=== PATIENT | female | born 1960 | race Caucasian/White ===

== ENCOUNTER 2021-06-21 12:15 | Inpatient (IN) | payer MEDICARE, MEDICAID ==
--- NOTE | 2021-06-21 14:55 | PCM.HP.2 ---
H&P History of Present Illness - General Date of Service: 06/21/21 Admit Problem/Dx: Admission Diagnosis/Problem Admission Diagnosis/Problem CHF, Congestive heart failure Source of Information: Patient History Limitations: Reports: No Limitations - History of Present Illness Initial Comments - Free Text/Narative: Nadira is admitted 06/21/2021 from clinic as a planned admission for more aggressive diureses. She has a hx of pulmonary HTN as well as chronic diastolic heart failure. She has a site leasing agent PICC in and receives Diuril 250 mg IV q Monday as an outpatient and takes 250 mg orally on the days she does not get the infusion. She also takes Lasix 200 mg IV daily and is supposed to add an additional 100 mg IV in the afternoon if her weight is up, but she has not been doing this as it has been inconvenient for her with her schedule. Her dry weight is 315 lbs and she states she was 322 this AM but our clinic scale said 328 today. She is SOB, she has bilateral LE edema with an open lesion on her left garza where she blistered and the skin came off. She also has edema in her abdomen. She has COPD and is on oxygen at 4LPM and when her weight is down she can get down to 3LPM via [place]. She follows with Dr. Veloz at [facility] and had been hospitalized in [place] for aggressive diuresis. I was able to speak to him today and he gave me instructions on how he would recommend she be diuresed. Please see plan for details. She has no other concerns. - Related Data Allergies/Adverse Reactions: Allergies Allergy/AdvReac Type Severity Reaction Status Date / Time levofloxacin Allergy Difficulty Verified 06/09/21 14:47 Breathing lisinopril Allergy Cough Verified 06/09/21 14:47 prednisone Allergy Cannot Verified 06/09/21 14:47 Remember Sulfa (Sulfonamide Allergy Rash Verified 06/09/21 14:47 Antibiotics) Home Medications: Home Meds Acetaminophen [Acetaminophen Extra Strength] 1,000 mg PO Q6H PRN 10/21/20 [History] Albuterol/Ipratropium [DuoNeb 3.0-0.5 MG/3 ML] 1 ampule INH Q4H PRN 10/21/20 [History] Chlorothiazide [Diuril] 250 mg PO ASDIRECTED 10/21/20 [History] Cyclobenzaprine [Flexeril] 5 mg PO TID PRN 10/21/20 [History] Docusate Sodium [Colace] 200 mg PO BEDTIME PRN 10/21/20 [History] Ferrous Sulfate 325 mg PO DAILY 10/21/20 [History] Fexofenadine HCl 180 mg PO DAILY PRN 10/21/20 [History] Fluticasone/Salmeterol [Advair 250-50] 1 puff INH BID 10/21/20 [History] Folic Acid 1 mg PO DAILY 10/21/20 [History] Furosemide in 0.9 % NaCl [Furosemide 100 mg/100 ml-Ns] 200 mg IV DAILY 10/21/20 [History] Insulin Aspart [NovoLOG] 50 units SUBCUT ASDIRECTED 10/21/20 [History] Insulin Glargine,Hum.Rec.Anlog [Basaglar Kwikpen U-100] 32 unit SUBCUT BEDTIME 10/21/20 [History] L.acidoph,Paracasei, B.lactis [Probiotic] 1 cap PO DAILY 10/21/20 [History] Levothyroxine Sodium [Levoxyl] 75 mcg PO DAILY 10/21/20 [History] Magnesium Oxide 400 mg PO DAILY 10/21/20 [History] Ondansetron [Zofran ODT] 4 mg PO Q6HR PRN 10/21/20 [History] Potassium Chloride 80 meq PO WITHBREAKFAST 10/21/20 [History] Spironolactone 50 mg PO DAILY PRN 10/21/20 [History] Tadalafil [Cialis] 20 mg PO DAILY 10/21/20 [History] Triamcinolone Acetonide [Triamcinolone Acetonide 0.5% Oint] 1 gm TOP BID PRN 10/21/20 [History] allopurinoL [Zyloprim] 100 mg PO DAILY 10/21/20 [History] polyethylene glycoL 3350 [MiraLAX] 17 gm PO DAILY PRN 10/21/20 [History] Acetaminophen/Codeine [Tylenol with Codeine No.3 300MG/30MG] 1 tab PO QID PRN 06/21/21 [History] Chlorothiazide Sodium 250 mg IV WEEKLY 06/21/21 [History] Omeprazole 40 mg PO DAILY 06/21/21 [History] Potassium Chloride 60 meq PO 1800 06/21/21 [History] metOLazone [Metolazone] 5 mg PO DAILY PRN 06/21/21 [History] Past Medical History HEENT History: Reports: Allergic Rhinitis Cardiovascular History: Reports: CAD, Heart Failure, High Cholesterol, Hypertension, Pulmonary Hypertension, Other (See Below) Other Cardiovascular History: Varicosities. Venous Insufficiency Respiratory History: Reports: COPD, Sleep Apnea, Other (See Below) Other Respiratory History: on 4l oxygen per [place] Gastrointestinal History: Reports: Chronic Constipation, GERD Other Gastrointestinal History: Liver disease Musculoskeletal History: Reports: Gout Neurological History: Reports: Neuropathy, Peripheral Psychiatric History: Reports: Anxiety, Depression Endocrine/Metabolic History: Reports: Diabetes, Type II, IDDM, Obesity/BMI 30+, Vitamin D Deficiency Hematologic History: Reports: Anemia, Blood Transfusion(s), Iron Deficiency - Infectious Disease History Infectious Disease History: Reports: MRSA Social & Family History - Family History Family Medical History: No Pertinent Family History - Caffeine Use Caffeine Use: Reports: Coffee H&P Review of Systems - Review of Systems: Review Of Systems: Comprehensive ROS is negative, except as noted in HPI. Exam - Exam Exam: See Below - Exam Quality Assessment: Supplemental Oxygen General: Alert, Oriented, Cooperative HEENT: Conjunctiva Clear, TMs Clear Lungs: Clear to Auscultation, Normal Respiratory Effort Cardiovascular: Regular Rate, Regular Rhythm GI/Abdominal Exam: Normal Bowel Sounds, Soft, Non-Tender Extremities: Pedal Edema Skin: Wound (She has a 5.5 cm x 5 cm open area to her left garza where the skin from a blister came off) - Patient Data Lab Results Last 24 hrs: Laboratory Results - last 24 hr 06/21/21 Range/Units 14:15 SARS CoV-2 RNA Rapid DREW Negative (NEGATIVE) Result Diagrams: 06/21/21 15:25 06/21/21 15:25 Problem List Initiated/Reviewed/Updated: Yes Orders Last 24hrs: Active Orders 24 hr Category Date Time Status Patient Status [ADT] Routine ADT 06/21/21 14:34 Ordered Blood Glucose Check, Bedside [RC] WITHMEALSANDBED Care 06/21/21 14:33 Ordered Height and Weight [RC] DAILY Care 06/21/21 14:33 Ordered Oxygen Therapy [RC] PRN Care 06/21/21 14:34 Ordered Up With Assistance [RC] ASDIRECTED Care 06/21/21 14:33 Ordered VTE/DVT Education [RC] PER UNIT ROUTINE Care 06/21/21 14:34 Ordered Vital Signs [RC] Q4H Care 06/21/21 14:34 Ordered 2 Gram Sodium Diet [DIET] Diet 06/21/21 Dinner Ordered CBC WITH AUTO DIFF [HEME] AM Lab 06/22/21 05:11 Ordered CBC WITH AUTO DIFF [HEME] AM Lab 06/23/21 05:11 Ordered CBC WITH AUTO DIFF [HEME] AM Lab 06/24/21 05:11 Ordered CBC WITH AUTO DIFF [HEME] AM Lab 06/25/21 05:11 Ordered CBC WITH AUTO DIFF [HEME] AM Lab 06/26/21 05:11 Ordered CBC WITH AUTO DIFF [HEME] AM Lab 06/27/21 05:11 Ordered CBC WITH AUTO DIFF [HEME] AM Lab 06/28/21 05:11 Ordered CBC WITH AUTO DIFF [HEME] Stat Lab 06/21/21 14:33 Ordered CMP [COMPREHENSIVE METABOLIC PN,CMP] [CHEM] AM Lab 06/22/21 05:11 Ordered CMP [COMPREHENSIVE METABOLIC PN,CMP] [CHEM] AM Lab 06/23/21 05:11 Ordered CMP [COMPREHENSIVE METABOLIC PN,CMP] [CHEM] AM Lab 06/24/21 05:11 Ordered CMP [COMPREHENSIVE METABOLIC PN,CMP] [CHEM] AM Lab 06/25/21 05:11 Ordered CMP [COMPREHENSIVE METABOLIC PN,CMP] [CHEM] AM Lab 06/26/21 05:11 Ordered CMP [COMPREHENSIVE METABOLIC PN,CMP] [CHEM] AM Lab 06/27/21 05:11 Ordered CMP [COMPREHENSIVE METABOLIC PN,CMP] [CHEM] AM Lab 06/28/21 05:11 Ordered COMPREHENSIVE METABOLIC PN,CMP [CHEM] Stat Lab 06/21/21 14:33 Ordered MAGNESIUM [CHEM] Stat Lab 06/21/21 14:33 Ordered Chlorothiazide Med 06/21/21 14:45 Ordered 250 mg IV TID Furosemide [Lasix] Med 06/21/21 14:45 Ordered 40 mg IVPUSH TID Resuscitation Status Routine Resus Stat 06/21/21 14:33 Ordered Medication Orders Chlorothiazide (Chlorothiazide 500 Mg Vial) 250 mg IV TID CHRISTINA Furosemide (Furosemide 40 Mg/4 Ml Vial) 40 mg IVPUSH TID CHRISTINA Assessment/Plan Comment:: Admission Diagnoses: Chronic Diastolic Heart Failure with exacerbation - Diuril 250 mg IV BID - Furosemide 80 mg IV TID, dose 30 minutes after AM and PM Diuril - Diamox 250 mg IV daily in AM with Diuril - Hold metolazone. Nadira had been taking daily and Dr. Veloz said to hold in the hospital and if needed, use only 3 times a week - Can consider increasing spironolactone to 100 mg PO daily - Dr. Urban Veloz office phone: [phone] - Sodium restriction 2 grams daily - Fluid restrictionn 1,500 mL daily Secondary Diagnoses: Pulmonary HTN - Tadalafil 20 mg PO daily Diabetes - Long acting insulin 32 units subcut daily - Short acting insulin 50-50-30, adjust per BG - BG TIDAC and HS CKD stage 3 - Daily labs Cirrhosis - Daily CMP ANDERS - Ferrous Sulfate 325 mg PO daily Constipation - Colace 200 mg PO daily PRN Hypothyroidism - 75 mcg PO daily Hypokalemia - 80 mEq q AM and 60 mEq q PM - Daily CMP Hypomagnesemia - Mag oxide 400 mg PO daily COPD - Advair 250/50 1 puff PO BID Gout - Allopurinol 100 mg PO daily Skin breakdown - Wound culture obtained - Cover with Aquacel and Telfa - Doxycycline 100 mg PO BID until culture is known CODE STATUS: No compression of defibrillation but trial of intubation if indicated.
[2021-06-21] MEDS ORDERED: Furosemide 40 MG/4 ML VIAL IVPUSH SCH ×2 (15:00→16:45)
[2021-06-21 15:56] LABS: ANION GAP 10.5 mmol/L (5-15); CHLORIDE,CL 104 mmol/L (98-107); SODIUM,NA 140 mmol/L (136-145)
[2021-06-21] MEDS ORDERED: Ondansetron 4 MG Tab.DIS PO PRN (16:55)
[2021-06-21] MEDS ORDERED: Docusate Sodium 100 MG Cap PO PRN (16:55)
[2021-06-21] MEDS ORDERED: 50% Dextrose in Water 50 ML Syringe IVPUSH PRN (16:55)
[2021-06-21] MEDS ORDERED: Polyethylene Glycol 3350 Powder 17 GM Packet PO PRN (16:55)
[2021-06-21] MEDS ORDERED: Non-Formulary Medication 1 Each (Fexofenadine Hcl [Fexofenadine Hcl] 180 MG Tablet) PO PRN (16:55)
[2021-06-21] MEDS ORDERED: Albuterol/Ipratropium 3.0-0.5 MG/3 ML Neb Soln INH PRN (16:55)
[2021-06-21] MEDS ORDERED: Glucagon,Human Recombinant 1 MG Vial IM PRN (16:55)
[2021-06-21] MEDS ORDERED: Non-Formulary Medication 1 Each (Triamcinolone Acetonide 15 GM Tube) TOP PRN (16:55)
[2021-06-21] MEDS ORDERED: Furosemide 40 MG/4 ML VIAL IVPUSH ONE (17:02)
[2021-06-21] MEDS ORDERED: Sodium Chloride 0.9% 50 ML IV SCH (17:15)
[2021-06-21] MEDS: Potassium Chloride 10 MEQ Tab.ER PO SCH (17:31)
[2021-06-21] MEDS ORDERED: Spironolactone 25 MG Tab PO PRN (17:32)
[2021-06-21] MEDS: Insulin Aspart 100 Units/ML 3 ML Pen SUBCUT SCH (18:05)
[2021-06-21] MEDS ORDERED: Furosemide 40 MG/4 ML VIAL IVPUSH PRN (19:00)
[2021-06-21] MEDS: Formoterol/Mometasone 200-5 MCG 8.8 GM Inhaler IH SCH (20:04)
[2021-06-21] MEDS: Insulin Glargine,Hum.Rec.Anlog 100 UNIT/ML 3 ML Pen SUBCUT SCH (20:04)
[2021-06-21] MEDS: Acetaminophen 500 MG Tab PO PRN (20:29)
[2021-06-22] MEDS: Cyclobenzaprine 5 MG Tab PO PRN (02:49)
[2021-06-22] MEDS ORDERED: acetaZOLAMIDE 250 MG in Sodium Chloride 0.9% 50 ML IV SCH ×2 (05:30→09:00)
[2021-06-22] MEDS: Furosemide 40 MG/4 ML VIAL IVPUSH SCH ×3 (05:56→18:23)
[2021-06-22] MEDS: Levothyroxine 75 MCG Tab PO SCH ×2 (05:57→06:12)
[2021-06-22] MEDS: Pantoprazole 40 MG Tab.CR PO SCH ×2 (05:57→06:12)
[2021-06-22] MEDS: Acetaminophen 500 MG Tab PO PRN (06:11)
[2021-06-22 08:02] LABS: ANION GAP 13.3 mmol/L (5-15)
[2021-06-22] MEDS: acetaZOLAMIDE 500 MG Vial IVPUSH SCH (08:06)
[2021-06-22] MEDS: Insulin Aspart 100 Units/ML 3 ML Pen SUBCUT SCH ×3 (08:10→18:19)
[2021-06-22] MEDS: Potassium Chloride 20 MEQ Tab.ER PO SCH (08:29)
[2021-06-22] MEDS: Folic Acid 1 MG Tab PO SCH (08:29)
[2021-06-22] MEDS: Ferrous Sulfate 325 MG Tab PO SCH (08:30)
[2021-06-22] MEDS: Lactobacillus Rhamnosus GG (Probiotic) Cap PO SCH (08:30)
[2021-06-22] MEDS: Allopurinol 100 MG Tab PO SCH (08:30)
[2021-06-22] MEDS: Formoterol/Mometasone 200-5 MCG 8.8 GM Inhaler IH SCH ×2 (08:30→20:29)
[2021-06-22] MEDS: Spironolactone 25 MG Tab PO SCH (08:30)
[2021-06-22] MEDS: TADALAFIL 20 MG PO SCH (08:37)
--- NOTE | 2021-06-22 09:16 | PCM.PN ---
- General Info Date of Service: 06/22/21 Admission Dx/Problem (Free Text): Admission Diagnosis/Problem Admission Diagnosis/Problem CHF, Congestive heart failure Subjective Update: Nadira was admitted 06/21 from the clinic for CHF exacerbation with volume overload. Her weight was 328, dry weight is 315 so she was 13 pounds over her dry weight. Under the guidance of her candy separator hard, Dr. Veloz, a regimen of diuresis was initiated on 06/21. Last evening she received Diuril 250 mg IV as well as a total of 120 mg of IV lasix. She is down 3 pounds this morning. She was up only once last night to urinate. She has an open sore on her left garza that was painful. She will ask for her Tylenol #3 tonight for pain, she does not want anything else. No calls overnight. This morning she feels her breathing is "much better". - Patient Data Vitals - Most Recent: Last Vital Signs Temp 96.8 F L 06/22/21 06:18 Pulse 78 06/22/21 06:18 Resp 20 06/22/21 06:18 BP 132/75 06/22/21 06:18 Pulse Ox 97 06/22/21 06:18 Weight - Most Recent: 325 lb 5 oz I&O - Last 24 Hours: Intake & Output 06/21/21 06/22/21 06/22/21 22:59 06:59 14:59 Intake Total 480 240 Output Total 2400 300 Balance -1920 -60 Lab Results Last 24 Hours: Laboratory Results - last 24 hr 06/21/21 06/21/21 06/21/21 Range/Units 14:15 15:25 15:25 WBC 5.62 (5.00-10.00) 10^3/uL RBC 3.23 L (3.80-5.50) 10^6/uL Hgb 9.5 L (12.0-16.0) g/dL Hct 30.6 L (37.0-47.0) % MCV 94.7 H (82.0-92.0) fL MCH 29.4 (27.0-31.0) pg MCHC 31.0 L (32.0-36.0) g/dL RDW 15.1 H (11.5-14.5) % Plt Count 141 L (150-400) 10^3/uL MPV 10.1 (7.4-10.4) fL Immature Gran % (Auto) 0.2 (0.0-5.0) % Neut % (Auto) 72.5 H (50.0-70.0) % Lymph % (Auto) 15.5 L (20.0-40.0) % Bollinger % (Auto) 7.3 (2.0-8.0) % Eos % (Auto) 4.1 H (1.0-3.0) % Baso % (Auto) 0.4 (0.0-1.0) % Neut # (Auto) 4.08 (2.50-7.00) 10^3/uL Lymph # (Auto) 0.87 L (1.00-4.00) 10^3/uL Bollinger # (Auto) 0.41 (0.10-0.80) 10^3/uL Eos # (Auto) 0.23 (0.10-0.30) 10^3/uL Baso # (Auto) 0.02 (0.00-0.10) 10^3/uL Immature Gran # (Auto) 0.01 (0.00-0.50) 10^3/uL Sodium 140 (136-145) mmol/L Potassium 3.7 (3.5-5.1) mmol/L Chloride 104 (98-107) mmol/L Carbon Dioxide 29.2 (21.0-32.0) mmol/L Anion Gap 10.5 (5-15) mmol/L BUN 42 H (7-18) mg/dL Creatinine 1.30 H (0.51-1.17) mg/dL Est Cr Clr Drug Dosing TNP Estimated GFR (MDRD) 42 mL/min Glucose 168 H (70-140) mg/dL POC Glucose (70-140) mg/dL Calcium 8.9 (8.7-10.3) mg/dL Magnesium 1.8 (1.8-2.4) mg/dL Total Bilirubin 0.8 (0.2-1.0) mg/dL AST 24 (15-37) U/L ALT 17 (14-63) U/L Alkaline Phosphatase 129 H (46-116) U/L Total Protein 8.4 H (6.4-8.2) g/dL Albumin 2.95 L (3.40-5.00) g/dL SARS CoV-2 RNA Rapid DREW Negative (NEGATIVE) 06/21/21 06/21/21 06/22/21 Range/Units 17:44 20:00 07:15 WBC 4.70 L (5.00-10.00) 10^3/uL RBC 3.23 L (3.80-5.50) 10^6/uL Hgb 9.5 L (12.0-16.0) g/dL Hct 30.9 L (37.0-47.0) % MCV 95.7 H (82.0-92.0) fL MCH 29.4 (27.0-31.0) pg MCHC 30.7 L (32.0-36.0) g/dL RDW 15.1 H (11.5-14.5) % Plt Count 143 L (150-400) 10^3/uL MPV 10.3 (7.4-10.4) fL Immature Gran % (Auto) 0.2 (0.0-5.0) % Neut % (Auto) 66.8 (50.0-70.0) % Lymph % (Auto) 18.7 L (20.0-40.0) % Bollinger % (Auto) 7.7 (2.0-8.0) % Eos % (Auto) 6.2 H (1.0-3.0) % Baso % (Auto) 0.4 (0.0-1.0) % Neut # (Auto) 3.14 (2.50-7.00) 10^3/uL Lymph # (Auto) 0.88 L (1.00-4.00) 10^3/uL Bollinger # (Auto) 0.36 (0.10-0.80) 10^3/uL Eos # (Auto) 0.29 (0.10-0.30) 10^3/uL Baso # (Auto) 0.02 (0.00-0.10) 10^3/uL Immature Gran # (Auto) 0.01 (0.00-0.50) 10^3/uL Sodium (136-145) mmol/L Potassium (3.5-5.1) mmol/L Chloride (98-107) mmol/L Carbon Dioxide (21.0-32.0) mmol/L Anion Gap (5-15) mmol/L BUN (7-18) mg/dL Creatinine (0.51-1.17) mg/dL Est Cr Clr Drug Dosing Estimated GFR (MDRD) mL/min Glucose (70-140) mg/dL POC Glucose 123 182 H (70-140) mg/dL Calcium (8.7-10.3) mg/dL Magnesium (1.8-2.4) mg/dL Total Bilirubin (0.2-1.0) mg/dL AST (15-37) U/L ALT (14-63) U/L Alkaline Phosphatase (46-116) U/L Total Protein (6.4-8.2) g/dL Albumin (3.40-5.00) g/dL SARS CoV-2 RNA Rapid DREW (NEGATIVE) 06/22/21 06/22/21 Range/Units 07:15 07:19 WBC (5.00-10.00) 10^3/uL RBC (3.80-5.50) 10^6/uL Hgb (12.0-16.0) g/dL Hct (37.0-47.0) % MCV (82.0-92.0) fL MCH (27.0-31.0) pg MCHC (32.0-36.0) g/dL RDW (11.5-14.5) % Plt Count (150-400) 10^3/uL MPV (7.4-10.4) fL Immature Gran % (Auto) (0.0-5.0) % Neut % (Auto) (50.0-70.0) % Lymph % (Auto) (20.0-40.0) % Bollinger % (Auto) (2.0-8.0) % Eos % (Auto) (1.0-3.0) % Baso % (Auto) (0.0-1.0) % Neut # (Auto) (2.50-7.00) 10^3/uL Lymph # (Auto) (1.00-4.00) 10^3/uL Bollinger # (Auto) (0.10-0.80) 10^3/uL Eos # (Auto) (0.10-0.30) 10^3/uL Baso # (Auto) (0.00-0.10) 10^3/uL Immature Gran # (Auto) (0.00-0.50) 10^3/uL Sodium 140 (136-145) mmol/L Potassium 3.5 (3.5-5.1) mmol/L Chloride 101 (98-107) mmol/L Carbon Dioxide 29.2 (21.0-32.0) mmol/L Anion Gap 13.3 (5-15) mmol/L BUN 42 H (7-18) mg/dL Creatinine 1.23 H (0.51-1.17) mg/dL Est Cr Clr Drug Dosing 41.48 Estimated GFR (MDRD) 44 mL/min Glucose 184 H (70-140) mg/dL POC Glucose 190 H (70-140) mg/dL Calcium 8.8 (8.7-10.3) mg/dL Magnesium (1.8-2.4) mg/dL Total Bilirubin 0.7 (0.2-1.0) mg/dL AST 23 (15-37) U/L ALT 17 (14-63) U/L Alkaline Phosphatase 128 H (46-116) U/L Total Protein 8.6 H (6.4-8.2) g/dL Albumin 2.96 L (3.40-5.00) g/dL SARS CoV-2 RNA Rapid DREW (NEGATIVE) Med Orders - Current: Current Medications Acetaminophen (Acetaminophen 500 Mg Tab) 1,000 mg PO Q6H PRN PRN Reason: Pain Last Admin: 06/22/21 06:11 Dose: 500 mg Documented by: Acetaminophen/Codeine Phosphate (Acetaminophen/Codeine 300-30 Mg Tab) 1 tab PO QID PRN PRN Reason: Pain Acetazolamide (Acetazolamide 500 Mg Vial) 250 mg IVPUSH DAILY@0530 [facility] Last Admin: 06/22/21 08:06 Dose: 250 mg Documented by: Albuterol/Ipratropium (Albuterol/Ipratropium 3.0-0.5 Mg/3 Ml Neb Soln) 3 ml INH Q4H PRN PRN Reason: Dyspnea Allopurinol (Allopurinol 100 Mg Tab) 100 mg PO DAILY [facility] Last Admin: 06/22/21 08:30 Dose: 100 mg Documented by: Chlorothiazide (Chlorothiazide 500 Mg Vial) 250 mg IV 0530,1730 [facility] Last Admin: 06/22/21 08:05 Dose: 250 mg Documented by: Cyclobenzaprine HCl (Cyclobenzaprine 5 Mg Tab) 5 mg PO TID PRN PRN Reason: muscle relaxant Last Admin: 06/22/21 02:49 Dose: 5 mg Documented by: Dextrose/Water (50% Dextrose In Water 50 Ml Syringe) 50 ml IVPUSH ASDIRECTED PRN PRN Reason: Hypoglycemia Docusate Sodium (Docusate Sodium 100 Mg Cap) 200 mg PO BEDTIME PRN PRN Reason: Constipation Doxycycline Hyclate (Doxycycline 50 Mg Cap) 100 mg PO BID [facility] Last Admin: 06/22/21 08:29 Dose: 100 mg Documented by: Ferrous Sulfate (Ferrous Sulfate 325 Mg Tab) 325 mg PO DAILY [facility] Last Admin: 06/22/21 08:30 Dose: 325 mg Documented by: Folic Acid (Folic Acid 1 Mg Tab) 1 mg PO DAILY [facility] Last Admin: 06/22/21 08:29 Dose: 1 mg Documented by: Furosemide (Furosemide 40 Mg/4 Ml Vial) 80 mg IVPUSH 0600,1200,1800 [facility] Last Admin: 06/22/21 05:56 Dose: 80 mg Documented by: Glucagon (Glucagon,Human Recombinant 1 Mg Vial) 1 mg IM ASDIRECTED PRN PRN Reason: Hypoglycemia Sodium Chloride (Normal Saline) 50 mls @ 100 mls/hr IV ASDIRECTED [facility] Insulin Aspart (Insulin Aspart 100 Units/Ml 3 Ml Pen) 50 unit SUBCUT BID@0800,1200 [facility] Last Admin: 06/22/21 08:10 Dose: 50 units Documented by: Insulin Aspart (Insulin Aspart 100 Units/Ml 3 Ml Pen) 30 unit SUBCUT DAILY@1800 [facility] Last Admin: 06/21/21 18:05 Dose: 30 units Documented by: Insulin Glargine (Insulin Glargine,Hum.Rec.Anlog 100 Unit/Ml 3 Ml Pen) 32 unit SUBCUT BEDTIME [facility] Last Admin: 06/21/21 20:04 Dose: 32 unit Documented by: Lactobacillus Rhamnosus (Lactobacillus Rhamnosus Gg (Probiotic) Cap) 1 cap PO DAILY [facility] Last Admin: 06/22/21 08:30 Dose: 1 cap Documented by: Levothyroxine Sodium (Levothyroxine 75 Mcg Tab) 75 mcg PO ACBRK [facility] Last Admin: 06/22/21 06:12 Dose: Not Given Documented by: Mometasone Furoate/Formoterol Fumar (Formoterol/Mometasone 200-5 Mcg 8.8 Gm Inhaler) 2 puff IH BID [facility] Last Admin: 06/22/21 08:30 Dose: 2 puff Documented by: Non-Formulary Medication (Fexofenadine Hcl [Fexofenadine Hcl]) 180 mg PO DAILY PRN PRN Reason: Shortness of Breath Non-Formulary Medication (Magnesium Oxide [Magnesium Oxide]) 400 mg PO DAILY [facility] Tadalafil (Cialis) 20 Mg Tablet Own Med 20 mg PO DAILY [facility] Last Admin: 06/22/21 08:37 Dose: 20 mg Documented by: Non-Formulary Medication (Triamcinolone Acetonide) 1 gm TOP BID PRN PRN Reason: Rash Ondansetron HCl (Ondansetron 4 Mg Tab.Dis) 4 mg PO Q6HR PRN PRN Reason: Nausea Pantoprazole Sodium (Pantoprazole 40 Mg Tab.Cr) 40 mg PO ACBRK [facility] Last Admin: 06/22/21 06:12 Dose: Not Given Documented by: Polyethylene Glycol (Polyethylene Glycol 3350 Powder 17 Gm Packet) 17 gm PO DAILY PRN PRN Reason: Constipation Last Admin: 06/22/21 08:32 Dose: 17 gm Documented by: Potassium Chloride (Potassium Chloride 10 Meq Tab.Er) 60 meq PO 1800 [facility] Last Admin: 06/21/21 17:31 Dose: 60 meq Documented by: Potassium Chloride (Potassium Chloride 20 Meq Tab.Er) 80 meq PO WITHBREAKFAST [facility] Last Admin: 06/22/21 08:29 Dose: 80 meq Documented by: Spironolactone (Spironolactone 25 Mg Tab) 50 mg PO DAILY [facility] Last Admin: 06/22/21 08:30 Dose: 50 mg Documented by: Discontinued Medications Chlorothiazide (Chlorothiazide 500 Mg Vial) 250 mg IV TID [facility] Last Admin: 06/21/21 15:45 Dose: 250 mg Documented by: Chlorothiazide (Chlorothiazide 500 Mg Vial) 250 mg IV BID [facility] Furosemide (Furosemide 40 Mg/4 Ml Vial) 40 mg IVPUSH TID [facility] Last Admin: 06/21/21 15:47 Dose: 40 mg Documented by: Furosemide (Furosemide 40 Mg/4 Ml Vial) 80 mg IVPUSH TID [facility] Last Admin: 06/21/21 18:20 Dose: Not Given Documented by: Furosemide (Furosemide 40 Mg/4 Ml Vial) 40 mg IVPUSH NOW ONE Stop: 06/21/21 17:03 Last Admin: 06/21/21 17:29 Dose: 40 mg Documented by: Furosemide (Furosemide 40 Mg/4 Ml Vial) 40 mg IVPUSH ONETIME PRN PRN Reason: decreased urine output Stop: 06/21/21 20:00 Acetazolamide 250 mg/ Sodium (Chloride) 50 mls @ 100 mls/hr IV DAILY [facility] Spironolactone (Spironolactone 25 Mg Tab) 50 mg PO DAILY PRN PRN Reason: fluid retention - Exam Quality Assessment: Supplemental Oxygen General: Alert, Oriented, Cooperative, No Acute Distress Lungs: Clear to Auscultation, Normal Respiratory Effort Cardiovascular: Regular Rate, Regular Rhythm, No Murmurs Extremities: Pedal Edema Wound/Incisions: Healing Well - Patient Data Lab Results Last 24 hrs: Laboratory Results - last 24 hr 06/21/21 06/21/21 06/21/21 Range/Units 14:15 15:25 15:25 WBC 5.62 (5.00-10.00) 10^3/uL RBC 3.23 L (3.80-5.50) 10^6/uL Hgb 9.5 L (12.0-16.0) g/dL Hct 30.6 L (37.0-47.0) % MCV 94.7 H (82.0-92.0) fL MCH 29.4 (27.0-31.0) pg MCHC 31.0 L (32.0-36.0) g/dL RDW 15.1 H (11.5-14.5) % Plt Count 141 L (150-400) 10^3/uL MPV 10.1 (7.4-10.4) fL Immature Gran % (Auto) 0.2 (0.0-5.0) % Neut % (Auto) 72.5 H (50.0-70.0) % Lymph % (Auto) 15.5 L (20.0-40.0) % Bollinger % (Auto) 7.3 (2.0-8.0) % Eos % (Auto) 4.1 H (1.0-3.0) % Baso % (Auto) 0.4 (0.0-1.0) % Neut # (Auto) 4.08 (2.50-7.00) 10^3/uL Lymph # (Auto) 0.87 L (1.00-4.00) 10^3/uL Bollinger # (Auto) 0.41 (0.10-0.80) 10^3/uL Eos # (Auto) 0.23 (0.10-0.30) 10^3/uL Baso # (Auto) 0.02 (0.00-0.10) 10^3/uL Immature Gran # (Auto) 0.01 (0.00-0.50) 10^3/uL Sodium 140 (136-145) mmol/L Potassium 3.7 (3.5-5.1) mmol/L Chloride 104 (98-107) mmol/L Carbon Dioxide 29.2 (21.0-32.0) mmol/L Anion Gap 10.5 (5-15) mmol/L BUN 42 H (7-18) mg/dL Creatinine 1.30 H (0.51-1.17) mg/dL Est Cr Clr Drug Dosing TNP Estimated GFR (MDRD) 42 mL/min Glucose 168 H (70-140) mg/dL POC Glucose (70-140) mg/dL Calcium 8.9 (8.7-10.3) mg/dL Magnesium 1.8 (1.8-2.4) mg/dL Total Bilirubin 0.8 (0.2-1.0) mg/dL AST 24 (15-37) U/L ALT 17 (14-63) U/L Alkaline Phosphatase 129 H (46-116) U/L Total Protein 8.4 H (6.4-8.2) g/dL Albumin 2.95 L (3.40-5.00) g/dL SARS CoV-2 RNA Rapid DREW Negative (NEGATIVE) 06/21/21 06/21/21 06/22/21 Range/Units 17:44 20:00 07:15 WBC 4.70 L (5.00-10.00) 10^3/uL RBC 3.23 L (3.80-5.50) 10^6/uL Hgb 9.5 L (12.0-16.0) g/dL Hct 30.9 L (37.0-47.0) % MCV 95.7 H (82.0-92.0) fL MCH 29.4 (27.0-31.0) pg MCHC 30.7 L (32.0-36.0) g/dL RDW 15.1 H (11.5-14.5) % Plt Count 143 L (150-400) 10^3/uL MPV 10.3 (7.4-10.4) fL Immature Gran % (Auto) 0.2 (0.0-5.0) % Neut % (Auto) 66.8 (50.0-70.0) % Lymph % (Auto) 18.7 L (20.0-40.0) % Bollinger % (Auto) 7.7 (2.0-8.0) % Eos % (Auto) 6.2 H (1.0-3.0) % Baso % (Auto) 0.4 (0.0-1.0) % Neut # (Auto) 3.14 (2.50-7.00) 10^3/uL Lymph # (Auto) 0.88 L (1.00-4.00) 10^3/uL Bollinger # (Auto) 0.36 (0.10-0.80) 10^3/uL Eos # (Auto) 0.29 (0.10-0.30) 10^3/uL Baso # (Auto) 0.02 (0.00-0.10) 10^3/uL Immature Gran # (Auto) 0.01 (0.00-0.50) 10^3/uL Sodium (136-145) mmol/L Potassium (3.5-5.1) mmol/L Chloride (98-107) mmol/L Carbon Dioxide (21.0-32.0) mmol/L Anion Gap (5-15) mmol/L BUN (7-18) mg/dL Creatinine (0.51-1.17) mg/dL Est Cr Clr Drug Dosing Estimated GFR (MDRD) mL/min Glucose (70-140) mg/dL POC Glucose 123 182 H (70-140) mg/dL Calcium (8.7-10.3) mg/dL Magnesium (1.8-2.4) mg/dL Total Bilirubin (0.2-1.0) mg/dL AST (15-37) U/L ALT (14-63) U/L Alkaline Phosphatase (46-116) U/L Total Protein (6.4-8.2) g/dL Albumin (3.40-5.00) g/dL SARS CoV-2 RNA Rapid DREW (NEGATIVE) 06/22/21 06/22/21 Range/Units 07:15 07:19 WBC (5.00-10.00) 10^3/uL RBC (3.80-5.50) 10^6/uL Hgb (12.0-16.0) g/dL Hct (37.0-47.0) % MCV (82.0-92.0) fL MCH (27.0-31.0) pg MCHC (32.0-36.0) g/dL RDW (11.5-14.5) % Plt Count (150-400) 10^3/uL MPV (7.4-10.4) fL Immature Gran % (Auto) (0.0-5.0) % Neut % (Auto) (50.0-70.0) % Lymph % (Auto) (20.0-40.0) % Bollinger % (Auto) (2.0-8.0) % Eos % (Auto) (1.0-3.0) % Baso % (Auto) (0.0-1.0) % Neut # (Auto) (2.50-7.00) 10^3/uL Lymph # (Auto) (1.00-4.00) 10^3/uL Bollinger # (Auto) (0.10-0.80) 10^3/uL Eos # (Auto) (0.10-0.30) 10^3/uL Baso # (Auto) (0.00-0.10) 10^3/uL Immature Gran # (Auto) (0.00-0.50) 10^3/uL Sodium 140 (136-145) mmol/L Potassium 3.5 (3.5-5.1) mmol/L Chloride 101 (98-107) mmol/L Carbon Dioxide 29.2 (21.0-32.0) mmol/L Anion Gap 13.3 (5-15) mmol/L BUN 42 H (7-18) mg/dL Creatinine 1.23 H (0.51-1.17) mg/dL Est Cr Clr Drug Dosing 41.48 Estimated GFR (MDRD) 44 mL/min Glucose 184 H (70-140) mg/dL POC Glucose 190 H (70-140) mg/dL Calcium 8.8 (8.7-10.3) mg/dL Magnesium (1.8-2.4) mg/dL Total Bilirubin 0.7 (0.2-1.0) mg/dL AST 23 (15-37) U/L ALT 17 (14-63) U/L Alkaline Phosphatase 128 H (46-116) U/L Total Protein 8.6 H (6.4-8.2) g/dL Albumin 2.96 L (3.40-5.00) g/dL SARS CoV-2 RNA Rapid DREW (NEGATIVE) Result Diagrams: 06/22/21 07:15 06/22/21 07:15 Sepsis Event Note - Evaluation Sepsis Screening Result: No Definite Risk - Focused Exam Vital Signs: Vital Signs Temp Pulse Resp BP Pulse Ox 06/22/21 06:18 96.8 F L 78 20 132/75 97 06/22/21 02:57 97.4 F 98 20 149/91 H 97 06/21/21 22:22 97.4 F 69 20 110/56 L 100 - Problem List Review Problem List Initiated/Reviewed/Updated: Yes - My Orders Last 24 Hours: My Active Orders 06/21/21 14:33 Blood Glucose Check, Bedside [RC] WITHMEALSANDBED Height and Weight [RC] 06 Up With Assistance [RC] DAILY Resuscitation Status Routine 06/21/21 14:34 Patient Status [ADT] Routine Vital Signs [RC] 03,07,11,15,19,23 06/21/21 16:55 Acetaminophen [Tylenol Extra Strength] 1,000 mg PO Q6H PRN Acetaminophen/Codeine [Tylenol with Codeine No.3 300MG/30MG] 1 tab PO QID PRN Albuterol/Ipratropium [DuoNeb 3.0-0.5 MG/3 ML] 3 ml INH Q4H PRN Cyclobenzaprine [Flexeril] 5 mg PO TID PRN Dextrose 50% in Water 50 ml IVPUSH ASDIRECTED PRN Docusate Sodium [Colace] 200 mg PO BEDTIME PRN Fexofenadine HCl [Fexofenadine HCl] 180 mg PO DAILY PRN Glucagon,Human Recombinant [GlucaGen] 1 mg IM ASDIRECTED PRN Ondansetron [Zofran ODT] 4 mg PO Q6HR PRN Triamcinolone Acetonide 1 gm TOP BID PRN polyethylene glycoL 3350 [MiraLAX] 17 gm PO DAILY PRN 06/21/21 17:00 CULTURE, ANAEROBE & AEROBE [MREF] Routine Doxycycline [Vibramycin] 100 mg PO BID 06/21/21 17:15 Sodium Chloride 0.9% [Normal Saline] 50 ml IV ASDIRECTED 06/21/21 Dinner 2 Gram Sodium Diet [DIET] Fluid Restriction [DIET] Insulin Aspart [NovoLOG] 30 unit SUBCUT DAILY@1800 Potassium Chloride [Klor-Con 10] 60 meq PO 1800 06/21/21 21:00 Insulin Glargine,Hum.Rec.Anlog [Semglee Pen] 32 unit SUBCUT BEDTIME Mometasone/Formoterol [Dulera 200-5 MCG] 2 puff IH BID 06/22/21 05:30 Chlorothiazide 250 mg IV 0530,1730 06/22/21 06:00 Furosemide [Lasix] 80 mg IVPUSH 0600,1200,1800 06/22/21 07:00 Levothyroxine 75 mcg PO ACBRK Pantoprazole [ProTONIX] 40 mg PO ACBRK 06/22/21 08:00 Insulin Aspart [NovoLOG] 50 unit SUBCUT BID@0800,1200 Potassium Chloride [Klor-Con M20] 80 meq PO WITHBREAKFAST acetaZOLAMIDE [Diamox] 250 mg IVPUSH DAILY@0530 06/22/21 09:00 Ferrous Sulfate 325 mg PO DAILY Folic Acid 1 mg PO DAILY Lactobacillus Rhamnosus GG [Culturelle] 1 cap PO DAILY Magnesium Oxide [Magnesium Oxide] 400 mg PO DAILY Spironolactone [Aldactone] 50 mg PO DAILY Tadalafil [Cialis] 20 mg PO DAILY allopurinoL [Zyloprim] 100 mg PO DAILY 06/23/21 05:11 CBC WITH AUTO DIFF [HEME] AM CMP [COMPREHENSIVE METABOLIC PN,CMP] [CHEM] AM 06/24/21 05:11 CBC WITH AUTO DIFF [HEME] AM CMP [COMPREHENSIVE METABOLIC PN,CMP] [CHEM] AM 06/25/21 05:11 CBC WITH AUTO DIFF [HEME] AM CMP [COMPREHENSIVE METABOLIC PN,CMP] [CHEM] AM 06/26/21 05:11 CBC WITH AUTO DIFF [HEME] AM CMP [COMPREHENSIVE METABOLIC PN,CMP] [CHEM] AM 06/27/21 05:11 CBC WITH AUTO DIFF [HEME] AM CMP [COMPREHENSIVE METABOLIC PN,CMP] [CHEM] AM 06/28/21 05:11 CBC WITH AUTO DIFF [HEME] AM CMP [COMPREHENSIVE METABOLIC PN,CMP] [CHEM] AM - Plan Plan:: Admission Diagnoses: Chronic Diastolic Heart Failure with exacerbation - Diuril 250 mg IV BID - Furosemide 80 mg IV TID, dose 30 minutes after AM and PM Diuril - Diamox 250 mg IV daily in AM with Diuril - Hold metolazone. Nadira had been taking daily and Dr. Veloz said to hold in the hospital and if needed, use only 3 times a week - Can consider increasing spironolactone to 100 mg PO daily - Dr. Urban Veloz office phone: [phone] - Sodium restriction 2 grams daily - Fluid restrictionn 1,500 mL daily Secondary Diagnoses: Pulmonary HTN - Tadalafil 20 mg PO daily Diabetes - Long acting insulin 32 units subcut daily - Short acting insulin 50-50-30, adjust per BG - BG TIDAC and HS CKD stage 3 - Daily labs Cirrhosis - Daily CMP ANDERS - Ferrous Sulfate 325 mg PO daily Constipation - Colace 200 mg PO daily PRN Hypothyroidism - 75 mcg PO daily Hypokalemia - 80 mEq q AM and 60 mEq q PM - Daily CMP Hypomagnesemia - Mag oxide 400 mg PO daily COPD - Advair 250/50 1 puff PO BID Gout - Allopurinol 100 mg PO daily Skin breakdown - Wound culture obtained - Cover with Aquacel and Telfa - Doxycycline 100 mg PO BID until culture is known CODE STATUS: No chest compressions or defibrillation but trial of intubation if indicated.
[2021-06-22] MEDS: Potassium Chloride 10 MEQ Tab.ER PO SCH (17:53)
[2021-06-22] MEDS: Insulin Glargine,Hum.Rec.Anlog 100 UNIT/ML 3 ML Pen SUBCUT SCH (20:27)
[2021-06-22] MEDS: Acetaminophen/Codeine 300-30 MG Tab PO PRN (20:30)
[2021-06-23] MEDS: Acetaminophen/Codeine 300-30 MG Tab PO PRN ×3 (02:38→20:22)
[2021-06-23] MEDS: acetaZOLAMIDE 500 MG Vial IVPUSH SCH (05:27)
[2021-06-23] MEDS: Furosemide 40 MG/4 ML VIAL IVPUSH SCH ×3 (05:56→18:15)
[2021-06-23] MEDS: Levothyroxine 75 MCG Tab PO SCH (05:59)
[2021-06-23] MEDS: Pantoprazole 40 MG Tab.CR PO SCH (05:59)
[2021-06-23] MEDS: Potassium Chloride 20 MEQ Tab.ER PO SCH ×2 (07:56→17:52)
[2021-06-23] MEDS: Insulin Aspart 100 Units/ML 3 ML Pen SUBCUT SCH ×3 (07:58→17:46)
[2021-06-23] MEDS: TADALAFIL 20 MG PO SCH (08:02)
[2021-06-23] MEDS: Spironolactone 25 MG Tab PO SCH (08:06)
[2021-06-23] MEDS: Magnesium Oxide 500 MG Tab PO SCH (08:07)
[2021-06-23] MEDS: Ferrous Sulfate 325 MG Tab PO SCH (08:08)
[2021-06-23] MEDS: Folic Acid 1 MG Tab PO SCH (08:08)
[2021-06-23] MEDS: Allopurinol 100 MG Tab PO SCH (08:08)
[2021-06-23] MEDS: Lactobacillus Rhamnosus GG (Probiotic) Cap PO SCH (08:08)
[2021-06-23] MEDS: Formoterol/Mometasone 200-5 MCG 8.8 GM Inhaler IH SCH ×2 (08:10→20:20)
--- NOTE | 2021-06-23 09:05 | PCM.PN ---
- General Info Date of Service: 06/23/21 Admission Dx/Problem (Free Text): Nadira was admitted for fluid overload with mild electrolyte imbalance, left garza integument irritation secondary of edematous blistering. She is culture pending on the left leg wound. She commented that she had not been fully compliant with diuretic protocol secondary of activities to which the Lasix limited her function due to frequent bathroom trips. Functional Status: Reports: Tolerating Diet, Ambulating. Denies: Pain Controlled - Review of Systems General: Reports: No Symptoms HEENT: Reports: No Symptoms Pulmonary: Reports: Shortness of Breath (Chronic in nature) Cardiovascular: Reports: No Symptoms. Denies: Chest Pain Gastrointestinal: Reports: No Symptoms Genitourinary: Reports: No Symptoms Musculoskeletal: Reports: Leg Pain Skin: Reports: Other (Left garza ulceration distal tibia) Neurological: Reports: No Symptoms Psychiatric: Reports: No Symptoms - Patient Data Vitals - Most Recent: Last Vital Signs Temp 96.8 F L 06/23/21 06:46 Pulse 76 06/23/21 06:46 Resp 20 06/23/21 06:46 BP 127/67 06/23/21 06:46 Pulse Ox 99 06/23/21 06:46 Weight - Most Recent: 319 lb 2 oz (Diuresing very well with slight decrease in potassium) I&O - Last 24 Hours: Intake & Output 06/22/21 06/23/21 06/23/21 22:59 06:59 14:59 Intake Total 425 100 Output Total 2500 500 Balance -2075 -400 Lab Results Last 24 Hours: Laboratory Results - last 24 hr 06/22/21 06/22/21 06/22/21 Range/Units 11:21 17:38 18:39 WBC (5.00-10.00) 10^3/uL RBC (3.80-5.50) 10^6/uL Hgb (12.0-16.0) g/dL Hct (37.0-47.0) % MCV (82.0-92.0) fL MCH (27.0-31.0) pg MCHC (32.0-36.0) g/dL RDW (11.5-14.5) % Plt Count (150-400) 10^3/uL MPV (7.4-10.4) fL Immature Gran % (Auto) (0.0-5.0) % Neut % (Auto) (50.0-70.0) % Lymph % (Auto) (20.0-40.0) % [place] % (Auto) (2.0-8.0) % Eos % (Auto) (1.0-3.0) % Baso % (Auto) (0.0-1.0) % Neut # (Auto) (2.50-7.00) 10^3/uL Lymph # (Auto) (1.00-4.00) 10^3/uL [place] # (Auto) (0.10-0.80) 10^3/uL Eos # (Auto) (0.10-0.30) 10^3/uL Baso # (Auto) (0.00-0.10) 10^3/uL Immature Gran # (Auto) (0.00-0.50) 10^3/uL Sodium (136-145) mmol/L Potassium (3.5-5.1) mmol/L Chloride (98-107) mmol/L Carbon Dioxide (21.0-32.0) mmol/L Anion Gap (5-15) mmol/L BUN (7-18) mg/dL Creatinine (0.51-1.17) mg/dL Est Cr Clr Drug Dosing mL/min Estimated GFR (MDRD) mL/min Glucose (70-140) mg/dL POC Glucose 138 42 L 83 (70-140) mg/dL Calcium (8.7-10.3) mg/dL AST (15-37) U/L ALT (14-63) U/L Alkaline Phosphatase (46-116) U/L Total Protein (6.4-8.2) g/dL Albumin (3.40-5.00) g/dL 06/22/21 06/23/21 06/23/21 Range/Units 20:23 02:43 07:15 WBC 5.74 (5.00-10.00) 10^3/uL RBC 3.24 L (3.80-5.50) 10^6/uL Hgb 9.6 L (12.0-16.0) g/dL Hct 30.3 L (37.0-47.0) % MCV 93.5 H (82.0-92.0) fL MCH 29.6 (27.0-31.0) pg MCHC 31.7 L (32.0-36.0) g/dL RDW 14.9 H (11.5-14.5) % Plt Count 163 (150-400) 10^3/uL MPV 10.3 (7.4-10.4) fL Immature Gran % (Auto) 0.3 (0.0-5.0) % Neut % (Auto) 68.3 (50.0-70.0) % Lymph % (Auto) 18.1 L (20.0-40.0) % [place] % (Auto) 7.1 (2.0-8.0) % Eos % (Auto) 5.7 H (1.0-3.0) % Baso % (Auto) 0.5 (0.0-1.0) % Neut # (Auto) 3.91 (2.50-7.00) 10^3/uL Lymph # (Auto) 1.04 (1.00-4.00) 10^3/uL [place] # (Auto) 0.41 (0.10-0.80) 10^3/uL Eos # (Auto) 0.33 H (0.10-0.30) 10^3/uL Baso # (Auto) 0.03 (0.00-0.10) 10^3/uL Immature Gran # (Auto) 0.02 (0.00-0.50) 10^3/uL Sodium (136-145) mmol/L Potassium (3.5-5.1) mmol/L Chloride (98-107) mmol/L Carbon Dioxide (21.0-32.0) mmol/L Anion Gap (5-15) mmol/L BUN (7-18) mg/dL Creatinine (0.51-1.17) mg/dL Est Cr Clr Drug Dosing mL/min Estimated GFR (MDRD) mL/min Glucose (70-140) mg/dL POC Glucose 182 H 115 (70-140) mg/dL Calcium (8.7-10.3) mg/dL AST (15-37) U/L ALT (14-63) U/L Alkaline Phosphatase (46-116) U/L Total Protein (6.4-8.2) g/dL Albumin (3.40-5.00) g/dL 06/23/21 06/23/21 Range/Units 07:15 07:21 WBC (5.00-10.00) 10^3/uL RBC (3.80-5.50) 10^6/uL Hgb (12.0-16.0) g/dL Hct (37.0-47.0) % MCV (82.0-92.0) fL MCH (27.0-31.0) pg MCHC (32.0-36.0) g/dL RDW (11.5-14.5) % Plt Count (150-400) 10^3/uL MPV (7.4-10.4) fL Immature Gran % (Auto) (0.0-5.0) % Neut % (Auto) (50.0-70.0) % Lymph % (Auto) (20.0-40.0) % [place] % (Auto) (2.0-8.0) % Eos % (Auto) (1.0-3.0) % Baso % (Auto) (0.0-1.0) % Neut # (Auto) (2.50-7.00) 10^3/uL Lymph # (Auto) (1.00-4.00) 10^3/uL [place] # (Auto) (0.10-0.80) 10^3/uL Eos # (Auto) (0.10-0.30) 10^3/uL Baso # (Auto) (0.00-0.10) 10^3/uL Immature Gran # (Auto) (0.00-0.50) 10^3/uL Sodium 142 (136-145) mmol/L Potassium 3.3 L (3.5-5.1) mmol/L Chloride 101 (98-107) mmol/L Carbon Dioxide 31.3 (21.0-32.0) mmol/L Anion Gap 13.0 (5-15) mmol/L BUN 40 H (7-18) mg/dL Creatinine 1.25 H (0.51-1.17) mg/dL Est Cr Clr Drug Dosing 40.81 mL/min Estimated GFR (MDRD) 44 mL/min Glucose 136 (70-140) mg/dL POC Glucose 131 (70-140) mg/dL Calcium 8.7 (8.7-10.3) mg/dL AST 26 (15-37) U/L ALT 18 (14-63) U/L Alkaline Phosphatase 133 H (46-116) U/L Total Protein 8.9 H (6.4-8.2) g/dL Albumin 3.09 L (3.40-5.00) g/dL Med Orders - Current: Current Medications Acetaminophen (Acetaminophen 500 Mg Tab) 1,000 mg PO Q6H PRN PRN Reason: Pain Last Admin: 06/22/21 06:11 Dose: 500 mg Documented by: Acetaminophen/Codeine Phosphate (Acetaminophen/Codeine 300-30 Mg Tab) 1 tab PO QID PRN PRN Reason: Pain Last Admin: 06/23/21 02:38 Dose: 1 tab Documented by: Acetazolamide (Acetazolamide 500 Mg Vial) 250 mg IVPUSH DAILY@0530 [facility] Last Admin: 06/23/21 05:27 Dose: 250 mg Documented by: Albuterol/Ipratropium (Albuterol/Ipratropium 3.0-0.5 Mg/3 Ml Neb Soln) 3 ml INH Q4H PRN PRN Reason: Dyspnea Allopurinol (Allopurinol 100 Mg Tab) 100 mg PO DAILY [facility] Last Admin: 06/23/21 08:08 Dose: 100 mg Documented by: Chlorothiazide (Chlorothiazide 500 Mg Vial) 250 mg IV 0530,1730 [facility] Last Admin: 06/23/21 05:25 Dose: 250 mg Documented by: Cyclobenzaprine HCl (Cyclobenzaprine 5 Mg Tab) 5 mg PO TID PRN PRN Reason: muscle relaxant Last Admin: 06/22/21 02:49 Dose: 5 mg Documented by: Dextrose/Water (50% Dextrose In Water 50 Ml Syringe) 50 ml IVPUSH ASDIRECTED PRN PRN Reason: Hypoglycemia Docusate Sodium (Docusate Sodium 100 Mg Cap) 200 mg PO BEDTIME PRN PRN Reason: Constipation Doxycycline Hyclate (Doxycycline 50 Mg Cap) 100 mg PO BID [facility] Last Admin: 06/23/21 08:08 Dose: 100 mg Documented by: Ferrous Sulfate (Ferrous Sulfate 325 Mg Tab) 325 mg PO DAILY [facility] Last Admin: 06/23/21 08:08 Dose: 325 mg Documented by: Folic Acid (Folic Acid 1 Mg Tab) 1 mg PO DAILY [facility] Last Admin: 06/23/21 08:08 Dose: 1 mg Documented by: Furosemide (Furosemide 40 Mg/4 Ml Vial) 80 mg IVPUSH 0600,1200,1800 [facility] Last Admin: 06/23/21 05:56 Dose: 80 mg Documented by: Glucagon (Glucagon,Human Recombinant 1 Mg Vial) 1 mg IM ASDIRECTED PRN PRN Reason: Hypoglycemia Sodium Chloride (Normal Saline) 50 mls @ 100 mls/hr IV ASDIRECTED [facility] Insulin Aspart (Insulin Aspart 100 Units/Ml 3 Ml Pen) 50 unit SUBCUT BID@0800,1200 [facility] Last Admin: 06/23/21 07:58 Dose: 50 units Documented by: Insulin Aspart (Insulin Aspart 100 Units/Ml 3 Ml Pen) 30 unit SUBCUT DAILY@1800 [facility] Last Admin: 06/22/21 18:19 Dose: Not Given Documented by: Insulin Glargine (Insulin Glargine,Hum.Rec.Anlog 100 Unit/Ml 3 Ml Pen) 32 unit SUBCUT BEDTIME [facility] Last Admin: 06/22/21 20:27 Dose: 32 unit Documented by: Lactobacillus Rhamnosus (Lactobacillus Rhamnosus Gg (Probiotic) Cap) 1 cap PO DAILY [facility] Last Admin: 06/23/21 08:08 Dose: 1 cap Documented by: Levothyroxine Sodium (Levothyroxine 75 Mcg Tab) [facility]cg [facility] Last Admin: 06/23/21 05:59 Dose: 75 mcg Documented by: Magnesium Oxide (Magnesium Oxide 500 Mg Tab) 500 mg PO DAILY [facility] Last Admin: 06/23/21 08:07 Dose: 500 mg Documented by: Mometasone Furoate/Formoterol Fumar (Formoterol/Mometasone 200-5 Mcg 8.8 Gm Inhaler) 2 puff IH BID [facility] Last Admin: 06/23/21 08:10 Dose: 2 puff Documented by: Tadalafil (Cialis) 20 Mg Tablet Own Med 20 mg PO DAILY [facility] Last Admin: 06/23/21 08:02 Dose: 20 mg Documented by: Ondansetron HCl (Ondansetron 4 Mg Tab.Dis) 4 mg PO Q6HR PRN PRN Reason: Nausea Pantoprazole Sodium (Pantoprazole 40 Mg Tab.Cr) 40 mg PO ACBRK [facility] Last Admin: 06/23/21 05:59 Dose: 40 mg Documented by: Polyethylene Glycol (Polyethylene Glycol 3350 Powder 17 Gm Packet) 17 gm PO DAILY PRN PRN Reason: Constipation Last Admin: 06/22/21 08:32 Dose: 17 gm Documented by: Potassium Chloride (Potassium Chloride 10 Meq Tab.Er) 60 meq PO 1800 [facility] Last Admin: 06/22/21 17:53 Dose: 60 meq Documented by: Potassium Chloride (Potassium Chloride 20 Meq Tab.Er) 80 meq PO WITHBREAKFAST [facility] Last Admin: 06/23/21 07:56 Dose: 80 meq Documented by: Potassium Chloride (Potassium Chloride 10 Meq Tab.Er) 20 meq PO ONETIME ONE Stop: 06/23/21 08:58 Spironolactone (Spironolactone 25 Mg Tab) 50 mg PO DAILY [facility] Last Admin: 06/23/21 08:06 Dose: 50 mg Documented by: Discontinued Medications Chlorothiazide (Chlorothiazide 500 Mg Vial) 250 mg IV TID [facility] Last Admin: 06/21/21 15:45 Dose: 250 mg Documented by: Chlorothiazide (Chlorothiazide 500 Mg Vial) 250 mg IV BID [facility] Furosemide (Furosemide 40 Mg/4 Ml Vial) 40 mg IVPUSH TID [facility] Last Admin: 06/21/21 15:47 Dose: 40 mg Documented by: Furosemide (Furosemide 40 Mg/4 Ml Vial) 80 mg IVPUSH TID [facility] Last Admin: 06/21/21 18:20 Dose: Not Given Documented by: Furosemide (Furosemide 40 Mg/4 Ml Vial) 40 mg IVPUSH NOW ONE Stop: 06/21/21 17:03 Last Admin: 06/21/21 17:29 Dose: 40 mg Documented by: Furosemide (Furosemide 40 Mg/4 Ml Vial) 40 mg IVPUSH ONETIME PRN PRN Reason: decreased urine output Stop: 06/21/21 20:00 Acetazolamide 250 mg/ Sodium (Chloride) 50 mls @ 100 mls/hr IV DAILY [facility] Spironolactone (Spironolactone 25 Mg Tab) 50 mg PO DAILY PRN PRN Reason: fluid retention - Exam Quality Assessment: Supplemental Oxygen, Skin Breakdown (Left garza noted on admission) General: Alert, Oriented, Cooperative HEENT: Pupils Equal, Pupils Reactive, EOMI, Mucous Membr. Moist/[place] Neck: Supple Lungs: Clear to Auscultation, Decreased Breath Sounds (Bases) Cardiovascular: Regular Rate, Regular Rhythm GI/Abdominal Exam: Normal Bowel Sounds, Soft, Non-Tender (Female) Exam: Deferred Back Exam: Normal Inspection. No: CVA Tenderness (L), CVA Tenderness (R) Extremities: Pedal Edema, Leg Pain (Left garza region distal of wound), Redness (Mild erythema distal of the documented wound.), Other (There is a compressible 1 x 2 cm raised area distal of the open wound that is starting to dry. Integument appears slightly different below the wound in comparison.) Skin: Warm Wound/Incisions: No Drainage Neurological: No New Focal Deficit Psy/Mental Status: Alert, Normal Affect, Normal Mood, Other (Cheerful and conversive throughout the examination.) - Patient Data Lab Results Last 24 hrs: Laboratory Results - last 24 hr 06/22/21 06/22/21 06/22/21 Range/Units 11:21 17:38 18:39 WBC (5.00-10.00) 10^3/uL RBC (3.80-5.50) 10^6/uL Hgb (12.0-16.0) g/dL Hct (37.0-47.0) % MCV (82.0-92.0) fL MCH (27.0-31.0) pg MCHC (32.0-36.0) g/dL RDW (11.5-14.5) % Plt Count (150-400) 10^3/uL MPV (7.4-10.4) fL Immature Gran % (Auto) (0.0-5.0) % Neut % (Auto) (50.0-70.0) % Lymph % (Auto) (20.0-40.0) % [place] % (Auto) (2.0-8.0) % Eos % (Auto) (1.0-3.0) % Baso % (Auto) (0.0-1.0) % Neut # (Auto) (2.50-7.00) 10^3/uL Lymph # (Auto) (1.00-4.00) 10^3/uL [place] # (Auto) (0.10-0.80) 10^3/uL Eos # (Auto) (0.10-0.30) 10^3/uL Baso # (Auto) (0.00-0.10) 10^3/uL Immature Gran # (Auto) (0.00-0.50) 10^3/uL Sodium (136-145) mmol/L Potassium (3.5-5.1) mmol/L Chloride (98-107) mmol/L Carbon Dioxide (21.0-32.0) mmol/L Anion Gap (5-15) mmol/L BUN (7-18) mg/dL Creatinine (0.51-1.17) mg/dL Est Cr Clr Drug Dosing mL/min Estimated GFR (MDRD) mL/min Glucose (70-140) mg/dL POC Glucose 138 42 L 83 (70-140) mg/dL Calcium (8.7-10.3) mg/dL AST (15-37) U/L ALT (14-63) U/L Alkaline Phosphatase (46-116) U/L Total Protein (6.4-8.2) g/dL Albumin (3.40-5.00) g/dL 06/22/21 06/23/21 06/23/21 Range/Units 20:23 02:43 07:15 WBC 5.74 (5.00-10.00) 10^3/uL RBC 3.24 L (3.80-5.50) 10^6/uL Hgb 9.6 L (12.0-16.0) g/dL Hct 30.3 L (37.0-47.0) % MCV 93.5 H (82.0-92.0) fL MCH 29.6 (27.0-31.0) pg MCHC 31.7 L (32.0-36.0) g/dL RDW 14.9 H (11.5-14.5) % Plt Count 163 (150-400) 10^3/uL MPV 10.3 (7.4-10.4) fL Immature Gran % (Auto) 0.3 (0.0-5.0) % Neut % (Auto) 68.3 (50.0-70.0) % Lymph % (Auto) 18.1 L (20.0-40.0) % [place] % (Auto) 7.1 (2.0-8.0) % Eos % (Auto) 5.7 H (1.0-3.0) % Baso % (Auto) 0.5 (0.0-1.0) % Neut # (Auto) 3.91 (2.50-7.00) 10^3/uL Lymph # (Auto) 1.04 (1.00-4.00) 10^3/uL [place] # (Auto) 0.41 (0.10-0.80) 10^3/uL Eos # (Auto) 0.33 H (0.10-0.30) 10^3/uL Baso # (Auto) 0.03 (0.00-0.10) 10^3/uL Immature Gran # (Auto) 0.02 (0.00-0.50) 10^3/uL Sodium (136-145) mmol/L Potassium (3.5-5.1) mmol/L Chloride (98-107) mmol/L Carbon Dioxide (21.0-32.0) mmol/L Anion Gap (5-15) mmol/L BUN (7-18) mg/dL Creatinine (0.51-1.17) mg/dL Est Cr Clr Drug Dosing mL/min Estimated GFR (MDRD) mL/min Glucose (70-140) mg/dL POC Glucose 182 H 115 (70-140) mg/dL Calcium (8.7-10.3) mg/dL AST (15-37) U/L ALT (14-63) U/L Alkaline Phosphatase (46-116) U/L Total Protein (6.4-8.2) g/dL Albumin (3.40-5.00) g/dL 06/23/21 06/23/21 Range/Units 07:15 07:21 WBC (5.00-10.00) 10^3/uL RBC (3.80-5.50) 10^6/uL Hgb (12.0-16.0) g/dL Hct (37.0-47.0) % MCV (82.0-92.0) fL MCH (27.0-31.0) pg MCHC (32.0-36.0) g/dL RDW (11.5-14.5) % Plt Count (150-400) 10^3/uL MPV (7.4-10.4) fL Immature Gran % (Auto) (0.0-5.0) % Neut % (Auto) (50.0-70.0) % Lymph % (Auto) (20.0-40.0) % [place] % (Auto) (2.0-8.0) % Eos % (Auto) (1.0-3.0) % Baso % (Auto) (0.0-1.0) % Neut # (Auto) (2.50-7.00) 10^3/uL Lymph # (Auto) (1.00-4.00) 10^3/uL [place] # (Auto) (0.10-0.80) 10^3/uL Eos # (Auto) (0.10-0.30) 10^3/uL Baso # (Auto) (0.00-0.10) 10^3/uL Immature Gran # (Auto) (0.00-0.50) 10^3/uL Sodium 142 (136-145) mmol/L Potassium 3.3 L (3.5-5.1) mmol/L Chloride 101 (98-107) mmol/L Carbon Dioxide 31.3 (21.0-32.0) mmol/L Anion Gap 13.0 (5-15) mmol/L BUN 40 H (7-18) mg/dL Creatinine 1.25 H (0.51-1.17) mg/dL Est Cr Clr Drug Dosing 40.81 mL/min Estimated GFR (MDRD) 44 mL/min Glucose 136 (70-140) mg/dL POC Glucose 131 (70-140) mg/dL Calcium 8.7 (8.7-10.3) mg/dL AST 26 (15-37) U/L ALT 18 (14-63) U/L Alkaline Phosphatase 133 H (46-116) U/L Total Protein 8.9 H (6.4-8.2) g/dL Albumin 3.09 L (3.40-5.00) g/dL Result Diagrams: 06/23/21 07:15 06/23/21 07:15 Sepsis Event Note - Evaluation Sepsis Screening Result: No Definite Risk - Focused Exam Vital Signs: Vital Signs Temp Pulse Resp BP BP Pulse Ox 06/23/21 06:46 96.8 F L 76 20 127/67 99 06/23/21 02:52 96.9 F 76 20 122/63 98 06/22/21 23:00 97.5 F 84 20 149/76 H 98 - Problem List & Annotations (1) CHF (congestive heart failure) SNOMED Code(s): 75893704 Code(s): I50.9 - HEART FAILURE, UNSPECIFIED Status: Acute Priority: High Current Visit: Yes Qualifiers: Heart failure type: diastolic Heart failure chronicity: acute on chronic Qualified Code(s): I50.33 - Acute on chronic diastolic (congestive) heart failure (2) Pulmonary HTN SNOMED Code(s): 00666755 Code(s): I27.20 - PULMONARY HYPERTENSION, UNSPECIFIED Status: Chronic Priority: High Current Visit: Yes (3) COPD (chronic obstructive pulmonary disease) SNOMED Code(s): 70056499 Code(s): J44.9 - CHRONIC OBSTRUCTIVE PULMONARY DISEASE, UNSPECIFIED Status: Chronic Current Visit: Yes Qualifiers: Emphysema type: unspecified (4) DM (diabetes mellitus) SNOMED Code(s): 97736054 Code(s): E11.9 - TYPE 2 DIABETES MELLITUS WITHOUT COMPLICATIONS Status: Acute Priority: High Current Visit: Yes Qualifiers: Diabetes mellitus type: type 2 Diabetes mellitus exterior designer insulin use: with prison use Diabetes mellitus complication status: with diabetic arthropathy (5) CKD (chronic kidney disease) stage 3, GFR 30-59 ml/min SNOMED Code(s): 331305151 Code(s): N18.30 - CHRONIC KIDNEY DISEASE, STAGE 3 UNSPECIFIED Status: Chronic Priority: High Current Visit: Yes Qualifiers: Chronic kidney disease stage 3 subtype: stage 3b (GFR 30-44) Qualified Code(s): N18.32 - Chronic kidney disease, stage 3b (6) Hypothyroid SNOMED Code(s): 07862271 Code(s): E03.9 - HYPOTHYROIDISM, UNSPECIFIED Status: Chronic Priority: Medium Current Visit: Yes Qualifiers: Hypothyroidism type: acquired Qualified Code(s): E03.9 - Hypothyroidism, unspecified (7) Skin breakdown SNOMED Code(s): 872949061 Code(s): R23.8 - OTHER SKIN CHANGES Status: Acute Priority: High Current Visit: Yes (8) Hx of gout SNOMED Code(s): 359061591 Code(s): Z87.39 - PERSONAL HISTORY OF DISEASES OF THE MS SYS AND CONN TISS Status: Chronic Priority: Medium Current Visit: Yes - Problem List Review Problem List Initiated/Reviewed/Updated: Yes - My Orders Last 24 Hours: My Active Orders 06/23/21 08:57 Potassium Chloride [Klor-Con 10] 20 meq PO ONETIME ONE - Assessment Assessment:: CHF. Continue diuresis as ordered. Skin breakdown. Will trial leaving Tegaderm in place after shower today to see if that is tolerated as no other coverings have been tolerated by her. Pulmonary hypertension. Continue medications with no changes at this time. COPD. Continue with treatments and oxygen as ordered. Diabetes mellitus insulin-dependent. 1 event of mild hypoglycemia which she recognized, will continue on current regimen and reevaluate today. Chronic kidney disease, stage III. Continue with cautious diuresis regimen. Hypothyroidism. Continue with current levothyroxine. History of gout. Continue with medications and surveillance. - Plan Plan:: Admission Diagnoses: Chronic Diastolic Heart Failure with exacerbation - Diuril 250 mg IV BID - Furosemide 80 mg IV TID, dose 30 minutes after AM and PM Diuril - Diamox 250 mg IV daily in AM with Diuril - Hold metolazone. Nadira had been taking daily and Dr. Veloz said to hold in the hospital and if needed, use only 3 times a week - Can consider increasing spironolactone to 100 mg PO daily - Dr. Urban Veloz office phone: [phone] - Sodium restriction 2 grams daily - Fluid restrictionn 1,500 mL daily Secondary Diagnoses: Pulmonary HTN - Tadalafil 20 mg PO daily Diabetes - Long acting insulin 32 units subcut daily - Short acting insulin 50-50-30, adjust per BG - BG TIDAC and HS CKD stage 3 - Daily labs Cirrhosis - Daily CMP ANDERS - Ferrous Sulfate 325 mg PO daily Constipation - Colace 200 mg PO daily PRN Hypothyroidism - 75 mcg PO daily Hypokalemia - 80 mEq q AM and 60 mEq q PM - Daily CMP Hypomagnesemia - Mag oxide 400 mg PO daily COPD - Advair 250/50 1 puff PO BID Gout - Allopurinol 100 mg PO daily Skin breakdown - Wound culture obtained - Cover with Aquacel and Telfa - Doxycycline 100 mg PO BID until culture is known CODE STATUS: No chest compressions or defibrillation but trial of intubation if indicated. We will implement one-time 20 mEq potassium oral this morning and reassess with tomorrow's laboratory analysis.
[2021-06-23] MEDS ORDERED: Potassium Chloride 10 MEQ Tab.ER PO ONE (09:45)
[2021-06-23] MEDS: Insulin Glargine,Hum.Rec.Anlog 100 UNIT/ML 3 ML Pen SUBCUT SCH (20:20)
[2021-06-24] MEDS: acetaZOLAMIDE 500 MG Vial IVPUSH SCH (05:23)
[2021-06-24] MEDS: Levothyroxine 75 MCG Tab PO SCH ×2 (05:38→06:30)
[2021-06-24] MEDS: Cyclobenzaprine 5 MG Tab PO PRN ×2 (05:38→21:39)
[2021-06-24] MEDS: Pantoprazole 40 MG Tab.CR PO SCH ×2 (05:39→06:30)
[2021-06-24] MEDS: Furosemide 40 MG/4 ML VIAL IVPUSH SCH ×3 (06:00→18:28)
[2021-06-24 08:08] LABS: ANION GAP 13.6 mmol/L (5-15)
[2021-06-24] MEDS ORDERED: Glucagon,Human Recombinant 1 MG Vial IM PRN (08:34)
[2021-06-24] MEDS ORDERED: 50% Dextrose in Water 50 ML Syringe IVPUSH PRN (08:34)
[2021-06-24] MEDS: Folic Acid 1 MG Tab PO SCH (08:38)
[2021-06-24] MEDS: Allopurinol 100 MG Tab PO SCH (08:38)
[2021-06-24] MEDS: Potassium Chloride 20 MEQ Tab.ER PO SCH ×2 (08:39→17:44)
[2021-06-24] MEDS: Lactobacillus Rhamnosus GG (Probiotic) Cap PO SCH (08:40)
[2021-06-24] MEDS: Spironolactone 25 MG Tab PO SCH (08:40)
[2021-06-24] MEDS: Magnesium Oxide 500 MG Tab PO SCH (08:41)
[2021-06-24] MEDS: Ferrous Sulfate 325 MG Tab PO SCH (08:41)
[2021-06-24] MEDS: TADALAFIL 20 MG PO SCH (08:42)
[2021-06-24] MEDS: Insulin Aspart 100 Units/ML 3 ML Pen SUBCUT SCH ×4 (08:46→18:13)
[2021-06-24] MEDS: Formoterol/Mometasone 200-5 MCG 8.8 GM Inhaler IH SCH ×2 (10:34→21:39)
--- OUTSIDE RECORDS SUMMARY | 2021-06-24 14:05 | XMSREPORT ---
:1960 Author Organization [facility] Address [address] [place] [phone] Phone Reason For Referral No Reason for Referral was given. History Of Present Illness No HPI available. Assessments No Assessments available Plan of Care Name Dates Details Planned Observations Hospital Referral Request
[2021-06-24] MEDS: Acetaminophen/Codeine 300-30 MG Tab PO PRN ×2 (15:19→21:39)
--- NOTE | 2021-06-24 17:09 | PCM.PN ---
- General Info Date of Service: 06/24/21 Admission Dx/Problem (Free Text): Nadira was admitted for fluid overload with mild electrolyte imbalance, left garza integument irritation secondary of edematous blistering. She is culture pending on the left leg wound. She commented that she had not been fully compliant with diuretic protocol secondary of activities to which the Lasix limited her function due to frequent bathroom trips. Functional Status: Reports: Pain Controlled - Review of Systems General: Reports: No Symptoms HEENT: Reports: No Symptoms Pulmonary: Denies: Shortness of Breath, Hemoptysis, Wheezing Cardiovascular: Denies: Chest Pain, Palpitations Gastrointestinal: Reports: No Symptoms Genitourinary: Reports: No Symptoms Musculoskeletal: Reports: No Symptoms Skin: Reports: Other (left lower extremity open area) Neurological: Reports: No Symptoms Psychiatric: Reports: No Symptoms - Patient Data Vitals - Most Recent: Last Vital Signs Temp 97 F 06/24/21 15:00 Pulse 80 06/24/21 15:00 Resp 20 06/24/21 15:00 BP 127/64 06/24/21 15:00 Pulse Ox 100 06/24/21 15:00 Weight - Most Recent: 315 lb 7 oz I&O - Last 24 Hours: Intake & Output 06/24/21 06/24/21 06/24/21 06:59 14:59 22:59 Intake Total 150 590 Output Total 500 3400 Balance -350 -2810 Lab Results Last 24 Hours: Laboratory Results - last 24 hr 06/23/21 06/23/21 06/23/21 Range/Units 16:51 17:26 20:11 WBC (5.00-10.00) 10^3/uL RBC (3.80-5.50) 10^6/uL Hgb (12.0-16.0) g/dL Hct (37.0-47.0) % MCV (82.0-92.0) fL MCH (27.0-31.0) pg MCHC (32.0-36.0) g/dL RDW (11.5-14.5) % Plt Count (150-400) 10^3/uL MPV (7.4-10.4) fL Immature Gran % (Auto) (0.0-5.0) % Neut % (Auto) (50.0-70.0) % Lymph % (Auto) (20.0-40.0) % Adams % (Auto) (2.0-8.0) % Eos % (Auto) (1.0-3.0) % Baso % (Auto) (0.0-1.0) % Neut # (Auto) (2.50-7.00) 10^3/uL Lymph # (Auto) (1.00-4.00) 10^3/uL Adams # (Auto) (0.10-0.80) 10^3/uL Eos # (Auto) (0.10-0.30) 10^3/uL Baso # (Auto) (0.00-0.10) 10^3/uL Immature Gran # (Auto) (0.00-0.50) 10^3/uL Sodium (136-145) mmol/L Potassium (3.5-5.1) mmol/L Chloride (98-107) mmol/L Carbon Dioxide (21.0-32.0) mmol/L Anion Gap (5-15) mmol/L BUN (7-18) mg/dL Creatinine (0.51-1.17) mg/dL Est Cr Clr Drug Dosing mL/min Estimated GFR (MDRD) mL/min Glucose (70-140) mg/dL POC Glucose 56 L 90 166 H (70-140) mg/dL Calcium (8.7-10.3) mg/dL Total Bilirubin (0.2-1.0) mg/dL AST (15-37) U/L ALT (14-63) U/L Alkaline Phosphatase (46-116) U/L Total Protein (6.4-8.2) g/dL Albumin (3.40-5.00) g/dL 06/24/21 06/24/21 06/24/21 Range/Units 07:20 07:20 07:27 WBC 5.00 (5.00-10.00) 10^3/uL RBC 3.48 L (3.80-5.50) 10^6/uL Hgb 10.2 L (12.0-16.0) g/dL Hct 32.9 L (37.0-47.0) % MCV 94.5 H (82.0-92.0) fL MCH 29.3 (27.0-31.0) pg MCHC 31.0 L (32.0-36.0) g/dL RDW 14.8 H (11.5-14.5) % Plt Count 150 (150-400) 10^3/uL MPV 9.9 (7.4-10.4) fL Immature Gran % (Auto) 0.2 (0.0-5.0) % Neut % (Auto) 68.4 (50.0-70.0) % Lymph % (Auto) 16.0 L (20.0-40.0) % Adams % (Auto) 8.4 H (2.0-8.0) % Eos % (Auto) 6.6 H (1.0-3.0) % Baso % (Auto) 0.4 (0.0-1.0) % Neut # (Auto) 3.42 (2.50-7.00) 10^3/uL Lymph # (Auto) 0.80 L (1.00-4.00) 10^3/uL Adams # (Auto) 0.42 (0.10-0.80) 10^3/uL Eos # (Auto) 0.33 H (0.10-0.30) 10^3/uL Baso # (Auto) 0.02 (0.00-0.10) 10^3/uL Immature Gran # (Auto) 0.01 (0.00-0.50) 10^3/uL Sodium 142 (136-145) mmol/L Potassium 3.5 (3.5-5.1) mmol/L Chloride 100 (98-107) mmol/L Carbon Dioxide 31.9 (21.0-32.0) mmol/L Anion Gap 13.6 (5-15) mmol/L BUN 41 H (7-18) mg/dL Creatinine 1.21 H (0.51-1.17) mg/dL Est Cr Clr Drug Dosing 42.16 mL/min Estimated GFR (MDRD) 45 mL/min Glucose 189 H (70-140) mg/dL POC Glucose 148 H (70-140) mg/dL Calcium 8.8 (8.7-10.3) mg/dL Total Bilirubin 0.5 (0.2-1.0) mg/dL AST 26 (15-37) U/L ALT 16 (14-63) U/L Alkaline Phosphatase 130 H (46-116) U/L Total Protein 8.3 H (6.4-8.2) g/dL Albumin 3.10 L (3.40-5.00) g/dL 06/24/21 06/24/21 Range/Units 11:58 15:14 WBC (5.00-10.00) 10^3/uL RBC (3.80-5.50) 10^6/uL Hgb (12.0-16.0) g/dL Hct (37.0-47.0) % MCV (82.0-92.0) fL MCH (27.0-31.0) pg MCHC (32.0-36.0) g/dL RDW (11.5-14.5) % Plt Count (150-400) 10^3/uL MPV (7.4-10.4) fL Immature Gran % (Auto) (0.0-5.0) % Neut % (Auto) (50.0-70.0) % Lymph % (Auto) (20.0-40.0) % Adams % (Auto) (2.0-8.0) % Eos % (Auto) (1.0-3.0) % Baso % (Auto) (0.0-1.0) % Neut # (Auto) (2.50-7.00) 10^3/uL Lymph # (Auto) (1.00-4.00) 10^3/uL Adams # (Auto) (0.10-0.80) 10^3/uL Eos # (Auto) (0.10-0.30) 10^3/uL Baso # (Auto) (0.00-0.10) 10^3/uL Immature Gran # (Auto) (0.00-0.50) 10^3/uL Sodium (136-145) mmol/L Potassium (3.5-5.1) mmol/L Chloride (98-107) mmol/L Carbon Dioxide (21.0-32.0) mmol/L Anion Gap (5-15) mmol/L BUN (7-18) mg/dL Creatinine (0.51-1.17) mg/dL Est Cr Clr Drug Dosing mL/min Estimated GFR (MDRD) mL/min Glucose (70-140) mg/dL POC Glucose 125 154 H (70-140) mg/dL Calcium (8.7-10.3) mg/dL Total Bilirubin (0.2-1.0) mg/dL AST (15-37) U/L ALT (14-63) U/L Alkaline Phosphatase (46-116) U/L Total Protein (6.4-8.2) g/dL Albumin (3.40-5.00) g/dL Ras Results Last 24 Hours: Microbiology 06/21/21 17:00 Aerobic Culture - Preliminary Leg, Left Staphylococcus Coagulase Neg Staphylococcus Coagulase Neg#2 Gram Stain - Final Anaerobic Culture - Preliminary Med Orders - Current: Current Medications Acetaminophen (Acetaminophen 500 Mg Tab) 1,000 mg PO Q6H PRN PRN Reason: Pain Last Admin: 06/22/21 06:11 Dose: 500 mg Documented by: Acetaminophen/Codeine Phosphate (Acetaminophen/Codeine 300-30 Mg Tab) 1 tab PO QID PRN PRN Reason: Pain Last Admin: 06/24/21 15:19 Dose: 1 tab Documented by: Acetazolamide (Acetazolamide 500 Mg Vial) 250 mg IVPUSH DAILY@0530 [facility] Last Admin: 06/24/21 05:23 Dose: 250 mg Documented by: Albuterol/Ipratropium (Albuterol/Ipratropium 3.0-0.5 Mg/3 Ml Neb Soln) 3 ml INH Q4H PRN PRN Reason: Dyspnea Allopurinol (Allopurinol 100 Mg Tab) 100 mg PO DAILY [facility] Last Admin: 06/24/21 08:38 Dose: 100 mg Documented by: Chlorothiazide (Chlorothiazide 500 Mg Vial) 250 mg IV 0530,1730 [facility] Last Admin: 06/24/21 05:23 Dose: 250 mg Documented by: Cyclobenzaprine HCl (Cyclobenzaprine 5 Mg Tab) 5 mg PO TID PRN PRN Reason: muscle relaxant Last Admin: 06/24/21 05:38 Dose: 5 mg Documented by: Dextrose/Water (50% Dextrose In Water 50 Ml Syringe) 50 ml IVPUSH ASDIRECTED PRN PRN Reason: Hypoglycemia Dextrose/Water (50% Dextrose In Water 50 Ml Syringe) 50 ml IVPUSH ASDIRECTED PRN PRN Reason: Hypoglycemia Docusate Sodium (Docusate Sodium 100 Mg Cap) 200 mg PO BEDTIME PRN PRN Reason: Constipation Doxycycline Hyclate (Doxycycline 50 Mg Cap) 100 mg PO BID [facility] Last Admin: 06/24/21 08:40 Dose: 100 mg Documented by: Ferrous Sulfate (Ferrous Sulfate 325 Mg Tab) 325 mg PO DAILY [facility] Last Admin: 06/24/21 08:41 Dose: 325 mg Documented by: Folic Acid (Folic Acid 1 Mg Tab) 1 mg PO DAILY [facility] Last Admin: 06/24/21 08:38 Dose: 1 mg Documented by: Furosemide (Furosemide 40 Mg/4 Ml Vial) 80 mg IVPUSH 0600,1200,1800 [facility] Last Admin: 06/24/21 12:04 Dose: 80 mg Documented by: Glucagon (Glucagon,Human Recombinant 1 Mg Vial) 1 mg IM ASDIRECTED PRN PRN Reason: Hypoglycemia Sodium Chloride (Normal Saline) 50 mls @ 100 mls/hr IV ASDIRECTED [facility] Insulin Aspart (Insulin Aspart 100 Units/Ml 3 Ml Pen) 50 unit SUBCUT 0800 [facility] Last Admin: 06/24/21 08:46 Dose: 50 units Documented by: Insulin Aspart (Insulin Aspart 100 Units/Ml 3 Ml Pen) 30 unit SUBCUT BID@1200,1800 [facility] Last Admin: 06/24/21 12:04 Dose: 30 unit Documented by: Insulin Glargine (Insulin Glargine,Hum.Rec.Anlog 100 Unit/Ml 3 Ml Pen) 32 unit SUBCUT BEDTIME [facility] Last Admin: 06/23/21 20:20 Dose: 32 unit Documented by: Lactobacillus Rhamnosus (Lactobacillus Rhamnosus Gg (Probiotic) Cap) 1 cap PO DAILY [facility] Last Admin: 06/24/21 08:40 Dose: 1 cap Documented by: Levothyroxine Sodium (Levothyroxine 75 Mcg Tab) 75 mcg PO ACBRK [facility] Last Admin: 06/24/21 06:30 Dose: Not Given Documented by: Magnesium Oxide (Magnesium Oxide 500 Mg Tab) 500 mg PO DAILY [facility] Last Admin: 06/24/21 08:41 Dose: 500 mg Documented by: Mometasone Furoate/Formoterol Fumar (Formoterol/Mometasone 200-5 Mcg 8.8 Gm Inhaler) 2 puff IH BID [facility] Last Admin: 06/24/21 10:34 Dose: 2 puff Documented by: Tadalafil (Cialis) 20 Mg Tablet Own Med 20 mg PO DAILY [facility] Last Admin: 06/24/21 08:42 Dose: 20 mg Documented by: Ondansetron HCl (Ondansetron 4 Mg Tab.Dis) 4 mg PO Q6HR PRN PRN Reason: Nausea Pantoprazole Sodium (Pantoprazole 40 Mg Tab.Cr) 40 mg PO ACBRK [facility] Last Admin: 06/24/21 06:30 Dose: Not Given Documented by: Polyethylene Glycol (Polyethylene Glycol 3350 Powder 17 Gm Packet) 17 gm PO DA AISHWARYA PRN PRN Reason: Constipation Last Admin: 06/22/21 08:32 Dose: 17 gm Documented by: Potassium Chloride (Potassium Chloride 20 Meq Tab.Er) 80 meq PO WITHBREAKFAST [facility] Last Admin: 06/24/21 08:39 Dose: 80 meq Documented by: Potassium Chloride (Potassium Chloride 20 Meq Tab.Er) 60 meq PO 1800 [facility] Last Admin: 06/23/21 17:52 Dose: 60 meq Documented by: Spironolactone (Spironolactone 25 Mg Tab) 50 mg PO DAILY [facility] Last Admin: 06/24/21 08:40 Dose: 50 mg Documented by: Discontinued Medications Chlorothiazide (Chlorothiazide 500 Mg Vial) 250 mg IV TID [facility] Last Admin: 06/21/21 15:45 Dose: 250 mg Documented by: Chlorothiazide (Chlorothiazide 500 Mg Vial) 250 mg IV BID [facility] Furosemide (Furosemide 40 Mg/4 Ml Vial) 40 mg IVPUSH TID [facility] Last Admin: 06/21/21 15:47 Dose: 40 mg Documented by: Furosemide (Furosemide 40 Mg/4 Ml Vial) 80 mg IVPUSH TID [facility] Last Admin: 06/21/21 18:20 Dose: Not Given Documented by: Furosemide (Furosemide 40 Mg/4 Ml Vial) 40 mg IVPUSH NOW ONE Stop: 06/21/21 17:03 Last Admin: 06/21/21 17:29 Dose: 40 mg Documented by: Furosemide (Furosemide 40 Mg/4 Ml Vial) 40 mg IVPUSH ONETIME PRN PRN Reason: decreased urine output Stop: 06/21/21 20:00 Acetazolamide 250 mg/ Sodium (Chloride) 50 mls @ 100 mls/hr IV DAILY [facility] Insulin Aspart (Insulin Aspart 100 Units/Ml 3 Ml Pen) 50 unit SUBCUT BID@0800,1200 [facility] Last Admin: 06/24/21 11:18 Dose: Not Given Documented by: Insulin Aspart (Insulin Aspart 100 Units/Ml 3 Ml Pen) 30 unit SUBCUT DAILY@1800 [facility] Last Admin: 06/23/21 17:46 Dose: Not Given Documented by: Potassium Chloride (Potassium Chloride 10 Meq Tab.Er) 60 meq PO 1800 [facility] Last Admin: 06/22/21 17:53 Dose: 60 meq Documented by: Potassium Chloride (Potassium Chloride 10 Meq Tab.Er) 20 meq PO ONETIME ONE Stop: 06/23/21 09:46 Last Admin: 06/23/21 11:04 Dose: 20 meq Documented by: Spironolactone (Spironolactone 25 Mg Tab) 50 mg PO DAILY PRN PRN Reason: fluid retention - Exam Quality Assessment: Supplemental Oxygen (chronic with know pulmonary HTN and COPD) General: Alert, Oriented HEENT: Pupils Equal, Pupils Reactive, EOMI, Mucous Membr. Moist/[place] Neck: Supple Lungs: Clear to Auscultation, Normal Respiratory Effort Cardiovascular: Regular Rate, Regular Rhythm GI/Abdominal Exam: Normal Bowel Sounds, Soft, Non-Tender (Female) Exam: Deferred Back Exam: Normal Inspection Extremities: Pedal Edema (+2-3) Skin: Warm, Dry Wound/Incisions: Drainage Neurological: No New Focal Deficit Psy/Mental Status: Alert, Normal Affect, Normal Mood - Patient Data Lab Results Last 24 hrs: Laboratory Results - last 24 hr 06/23/21 06/23/21 06/23/21 Range/Units 16:51 17:26 20:11 WBC (5.00-10.00) 10^3/uL RBC (3.80-5.50) 10^6/uL Hgb (12.0-16.0) g/dL Hct (37.0-47.0) % MCV (82.0-92.0) fL MCH (27.0-31.0) pg MCHC (32.0-36.0) g/dL RDW (11.5-14.5) % Plt Count (150-400) 10^3/uL MPV (7.4-10.4) fL Immature Gran % (Auto) (0.0-5.0) % Neut % (Auto) (50.0-70.0) % Lymph % (Auto) (20.0-40.0) % Adams % (Auto) (2.0-8.0) % Eos % (Auto) (1.0-3.0) % Baso % (Auto) (0.0-1.0) % Neut # (Auto) (2.50-7.00) 10^3/uL Lymph # (Auto) (1.00-4.00) 10^3/uL Adams # (Auto) (0.10-0.80) 10^3/uL Eos # (Auto) (0.10-0.30) 10^3/uL Baso # (Auto) (0.00-0.10) 10^3/uL Immature Gran # (Auto) (0.00-0.50) 10^3/uL Sodium (136-145) mmol/L Potassium (3.5-5.1) mmol/L Chloride (98-107) mmol/L Carbon Dioxide (21.0-32.0) mmol/L Anion Gap (5-15) mmol/L BUN (7-18) mg/dL Creatinine (0.51-1.17) mg/dL Est Cr Clr Drug Dosing mL/min Estimated GFR (MDRD) mL/min Glucose (70-140) mg/dL POC Glucose 56 L 90 166 H (70-140) mg/dL Calcium (8.7-10.3) mg/dL Total Bilirubin (0.2-1.0) mg/dL AST (15-37) U/L ALT (14-63) U/L Alkaline Phosphatase (46-116) U/L Total Protein (6.4-8.2) g/dL Albumin (3.40-5.00) g/dL 06/24/21 06/24/21 06/24/21 Range/Units 07:20 07:20 07:27 WBC 5.00 (5.00-10.00) 10^3/uL RBC 3.48 L (3.80-5.50) 10^6/uL Hgb 10.2 L (12.0-16.0) g/dL Hct 32.9 L (37.0-47.0) % MCV 94.5 H (82.0-92.0) fL MCH 29.3 (27.0-31.0) pg MCHC 31.0 L (32.0-36.0) g/dL RDW 14.8 H (11.5-14.5) % Plt Count 150 (150-400) 10^3/uL MPV 9.9 (7.4-10.4) fL Immature Gran % (Auto) 0.2 (0.0-5.0) % Neut % (Auto) 68.4 (50.0-70.0) % Lymph % (Auto) 16.0 L (20.0-40.0) % Adams % (Auto) 8.4 H (2.0-8.0) % Eos % (Auto) 6.6 H (1.0-3.0) % Baso % (Auto) 0.4 (0.0-1.0) % Neut # (Auto) 3.42 (2.50-7.00) 10^3/uL Lymph # (Auto) 0.80 L (1.00-4.00) 10^3/uL Adams # (Auto) 0.42 (0.10-0.80) 10^3/uL Eos # (Auto) 0.33 H (0.10-0.30) 10^3/uL Baso # (Auto) 0.02 (0.00-0.10) 10^3/uL Immature Gran # (Auto) 0.01 (0.00-0.50) 10^3/uL Sodium 142 (136-145) mmol/L Potassium 3.5 (3.5-5.1) mmol/L Chloride 100 (98-107) mmol/L Carbon Dioxide 31.9 (21.0-32.0) mmol/L Anion Gap 13.6 (5-15) mmol/L BUN 41 H (7-18) mg/dL Creatinine 1.21 H (0.51-1.17) mg/dL Est Cr Clr Drug Dosing 42.16 mL/min Estimated GFR (MDRD) 45 mL/min Glucose 189 H (70-140) mg/dL POC Glucose 148 H (70-140) mg/dL Calcium 8.8 (8.7-10.3) mg/dL Total Bilirubin 0.5 (0.2-1.0) mg/dL AST 26 (15-37) U/L ALT 16 (14-63) U/L Alkaline Phosphatase 130 H (46-116) U/L Total Protein 8.3 H (6.4-8.2) g/dL Albumin 3.10 L (3.40-5.00) g/dL 06/24/21 06/24/21 Range/Units 11:58 15:14 WBC (5.00-10.00) 10^3/uL RBC (3.80-5.50) 10^6/uL Hgb (12.0-16.0) g/dL Hct (37.0-47.0) % MCV (82.0-92.0) fL MCH (27.0-31.0) pg MCHC (32.0-36.0) g/dL RDW (11.5-14.5) % Plt Count (150-400) 10^3/uL MPV (7.4-10.4) fL Immature Gran % (Auto) (0.0-5.0) % Neut % (Auto) (50.0-70.0) % Lymph % (Auto) (20.0-40.0) % Adams % (Auto) (2.0-8.0) % Eos % (Auto) (1.0-3.0) % Baso % (Auto) (0.0-1.0) % Neut # (Auto) (2.50-7.00) 10^3/uL Lymph # (Auto) (1.00-4.00) 10^3/uL Adams # (Auto) (0.10-0.80) 10^3/uL Eos # (Auto) (0.10-0.30) 10^3/uL Baso # (Auto) (0.00-0.10) 10^3/uL Immature Gran # (Auto) (0.00-0.50) 10^3/uL Sodium (136-145) mmol/L Potassium (3.5-5.1) mmol/L Chloride (98-107) mmol/L Carbon Dioxide (21.0-32.0) mmol/L Anion Gap (5-15) mmol/L BUN (7-18) mg/dL Creatinine (0.51-1.17) mg/dL Est Cr Clr Drug Dosing mL/min Estimated GFR (MDRD) mL/min Glucose (70-140) mg/dL POC Glucose 125 154 H (70-140) mg/dL Calcium (8.7-10.3) mg/dL Total Bilirubin (0.2-1.0) mg/dL AST (15-37) U/L ALT (14-63) U/L Alkaline Phosphatase (46-116) U/L Total Protein (6.4-8.2) g/dL Albumin (3.40-5.00) g/dL Result Diagrams: 06/24/21 07:20 06/24/21 07:20 Ras Results Last 24 hrs: Microbiology 06/21/21 17:00 Aerobic Culture - Preliminary Leg, Left Staphylococcus Coagulase Neg Staphylococcus Coagulase Neg#2 Gram Stain - Final Anaerobic Culture - Preliminary Sepsis Event Note - Evaluation Sepsis Screening Result: No Definite Risk - Focused Exam Vital Signs: Vital Signs Temp Pulse Resp BP Pulse Ox Pulse Ox 06/24/21 15:00 97 F 80 20 127/64 100 06/24/21 06:30 97 06/24/21 06:24 96.2 F L 83 20 144/73 H 97 - Problem List & Annotations (1) CHF (congestive heart failure) SNOMED Code(s): 71035607 Code(s): I50.9 - HEART FAILURE, UNSPECIFIED Status: Acute Priority: High Current Visit: Yes Qualifiers: Heart failure type: diastolic Heart failure chronicity: acute on chronic Qualified Code(s): I50.33 - Acute on chronic diastolic (congestive) heart failure (2) Pulmonary HTN SNOMED Code(s): 86076522 Code(s): I27.20 - PULMONARY HYPERTENSION, UNSPECIFIED Status: Chronic Priority: High Current Visit: Yes (3) COPD (chronic obstructive pulmonary disease) SNOMED Code(s): 30953178 Code(s): J44.9 - CHRONIC OBSTRUCTIVE PULMONARY DISEASE, UNSPECIFIED Status: Chronic Current Visit: Yes Qualifiers: Emphysema type: unspecified (4) DM (diabetes mellitus) SNOMED Code(s): 99539705 Code(s): E11.9 - TYPE 2 DIABETES MELLITUS WITHOUT COMPLICATIONS Status: Acute Priority: High Current Visit: Yes Qualifiers: Diabetes mellitus type: type 2 Diabetes mellitus mcfp insulin use: with middle or intermediate school principal use Diabetes mellitus complication status: with diabetic arthropathy (5) CKD (chronic kidney disease) stage 3, GFR 30-59 ml/min SNOMED Code(s): 593925583 Code(s): N18.30 - CHRONIC KIDNEY DISEASE, STAGE 3 UNSPECIFIED Status: Chronic Priority: High Current Visit: Yes Qualifiers: Chronic kidney disease stage 3 subtype: stage 3b (GFR 30-44) Qualified Code(s): N18.32 - Chronic kidney disease, stage 3b (6) Hypothyroid SNOMED Code(s): 90542632 Code(s): E03.9 - HYPOTHYROIDISM, UNSPECIFIED Status: Chronic Priority: Medium Current Visit: Yes Qualifiers: Hypothyroidism type: acquired Qualified Code(s): E03.9 - Hypothyroidism, unspecified (7) Skin breakdown SNOMED Code(s): 315684647 Code(s): R23.8 - OTHER SKIN CHANGES Status: Acute Priority: High Current Visit: Yes (8) Hx of gout SNOMED Code(s): 818928734 Code(s): Z87.39 - PERSONAL HISTORY OF DISEASES OF THE MS SYS AND CONN TISS Status: Chronic Priority: Medium Current Visit: Yes - Problem List Review Problem List Initiated/Reviewed/Updated: Yes - My Orders Last 24 Hours: My Active Orders 06/24/21 08:34 Dextrose 50% in Water 50 ml IVPUSH ASDIRECTED PRN Glucagon,Human Recombinant [GlucaGen] 1 mg IM ASDIRECTED PRN 06/24/21 09:00 Communication Order [RC] DAILY 06/24/21 12:00 Insulin Aspart [NovoLOG] 30 unit SUBCUT BID@1200,1800 06/25/21 08:00 Insulin Aspart [NovoLOG] 50 unit SUBCUT 0800 - Assessment Assessment:: CHF. Continue diuresis as ordered. Skin breakdown. Will trial leaving Tegaderm in place after shower today to see if that is tolerated as no other coverings have been tolerated by her. Pulmonary hypertension. Continue medications with no changes at this time. COPD. Continue with treatments and oxygen as ordered. Diabetes mellitus insulin-dependent. 1 event of mild hypoglycemia which she recognized, will continue on current regimen and reevaluate today. Chronic kidney disease, stage III. Continue with cautious diuresis regimen. Hypothyroidism. Continue with current levothyroxine. History of gout. Continue with medications and surveillance. - Plan Plan:: Admission Diagnoses: Chronic Diastolic Heart Failure with exacerbation - Diuril 250 mg IV BID - Furosemide 80 mg IV TID, dose 30 minutes after AM and PM Diuril - Diamox 250 mg IV daily in AM with Diuril - Hold metolazone. Nadira had been taking daily and Dr. Veloz said to hold in the hospital and if needed, use only 3 times a week - Can consider increasing spironolactone to 100 mg PO daily - Dr. Urban Veloz office phone: [phone] - Sodium restriction 2 grams daily - Fluid restrictionn 1,500 mL daily Secondary Diagnoses: Pulmonary HTN - Tadalafil 20 mg PO daily Diabetes - Long acting insulin 32 units subcut daily - Short acting insulin 50-50-30, adjust per BG - BG TIDAC and HS CKD stage 3 - Daily labs Cirrhosis - Daily CMP ANDERS - Ferrous Sulfate 325 mg PO daily Constipation - Colace 200 mg PO daily PRN Hypothyroidism - 75 mcg PO daily Hypokalemia - 80 mEq q AM and 60 mEq q PM - Daily CMP Hypomagnesemia - Mag oxide 400 mg PO daily COPD - Advair 250/50 1 puff PO BID Gout - Allopurinol 100 mg PO daily Skin breakdown - Wound culture obtained - Cover with Aquacel and Telfa - Doxycycline 100 mg PO BID until culture is known CODE STATUS: No chest compressions or defibrillation but trial of intubation if indicated. Will contact [facility] for primary Dr Veloz for discussion of discharge treatment dosing.
[2021-06-24] MEDS: Insulin Glargine,Hum.Rec.Anlog 100 UNIT/ML 3 ML Pen SUBCUT SCH (21:38)
[2021-06-25] MEDS: Acetaminophen 500 MG Tab PO PRN (02:21)
[2021-06-25] MEDS: acetaZOLAMIDE 500 MG Vial IVPUSH SCH (05:30)
[2021-06-25] MEDS: Furosemide 40 MG/4 ML VIAL IVPUSH SCH ×2 (06:08→12:26)
[2021-06-25] MEDS: Levothyroxine 75 MCG Tab PO SCH (06:08)
[2021-06-25] MEDS: Pantoprazole 40 MG Tab.CR PO SCH (06:09)
[2021-06-25 07:52] LABS: ANION GAP 12.8 mmol/L (5-15)
[2021-06-25] MEDS: Allopurinol 100 MG Tab PO SCH (08:22)
[2021-06-25] MEDS: Lactobacillus Rhamnosus GG (Probiotic) Cap PO SCH (08:22)
[2021-06-25] MEDS: Potassium Chloride 20 MEQ Tab.ER PO SCH (08:22)
[2021-06-25] MEDS: Ferrous Sulfate 325 MG Tab PO SCH (08:22)
[2021-06-25] MEDS: Spironolactone 25 MG Tab PO SCH (08:22)
[2021-06-25] MEDS: Magnesium Oxide 500 MG Tab PO SCH (08:22)
[2021-06-25] MEDS: Folic Acid 1 MG Tab PO SCH (08:22)
[2021-06-25] MEDS: Formoterol/Mometasone 200-5 MCG 8.8 GM Inhaler IH SCH (08:22)
[2021-06-25] MEDS: Insulin Aspart 100 Units/ML 3 ML Pen SUBCUT SCH ×2 (08:23→12:26)
[2021-06-25] MEDS: TADALAFIL 20 MG PO SCH (08:25)
[2021-06-25] MEDS ORDERED: Potassium Chloride 20 MEQ Tab.ER PO ONE (11:15)
--- NOTE | 2021-06-25 11:57 | PCM.PN ---
- General Info Date of Service: 06/25/21 Admission Dx/Problem (Free Text): Nadira was admitted for fluid overload with mild electrolyte imbalance, left garza integument irritation secondary of edematous blistering. She is culture pending on the left leg wound. She commented that she had not been fully compliant with diuretic protocol secondary of activities to which the Lasix limited her function due to frequent bathroom trips. Subjective Update: Nadira was admitted 06/21 from the clinic for CHF exacerbation with volume overload. Her weight was 328, dry weight is 315 so she was 13 pounds over her dry weight. Under the guidance of her toy designer, Dr. Veloz, a regimen of diuresis was initiated on 06/21. Last evening she received Diuril 250 mg IV as well as a total of 120 mg of IV lasix. She is down 3 pounds this morning. She was up only once last night to urinate. She has an open sore on her left garza that was painful. She will ask for her Tylenol #3 tonight for pain, she does not want anything else. No calls overnight. This morning she feels her breathing is "much better". She has much improved discomfort to the wound on her left garza with it starting to scab over at this time. Preliminary culture for Staphylococcus. She states she is feeling much better and is anxious for discharge today stating that she did get her Dexcom monitors update and will be able to implement that as soon as she gets home. She feels better that she experienced no hypoglycemic event as we decreased her noon insulin from 50 units down to 30 units yesterday. She has limited ambulation yesterday secondary of discomfort to the leg but states she kept it elevated as much as possible and did walk some in the room with the use of the 4 legged walker. Functional Status: Reports: Pain Controlled - Review of Systems General: Reports: No Symptoms HEENT: Reports: No Symptoms Pulmonary: Reports: No Symptoms Cardiovascular: Reports: No Symptoms Gastrointestinal: Reports: No Symptoms Genitourinary: Reports: No Symptoms Musculoskeletal: Reports: No Symptoms Skin: Reports: Other (Left garza wound has improved with pain and is starting to form a scab.) Neurological: Reports: No Symptoms Psychiatric: Reports: No Symptoms - Patient Data Vitals - Most Recent: Last Vital Signs Temp 96.0 F L 06/25/21 06:03 Pulse 60 10/15/21 06:03 Resp 16 06/25/21 06:03 BP 127/64 06/25/21 06:03 Pulse Ox 97 06/25/21 06:05 Weight - Most Recent: 313 lb 3 oz I&O - Last 24 Hours: Intake & Output 06/24/21 06/25/21 06/25/21 22:59 06:59 14:59 Intake Total 450 100 Output Total 2300 200 Balance -1850 -100 Lab Results Last 24 Hours: Laboratory Results - last 24 hr 06/24/21 06/24/21 06/24/21 Range/Units 11:58 15:14 17:43 WBC (5.00-10.00) 10^3/uL RBC (3.80-5.50) 10^6/uL Hgb (12.0-16.0) g/dL Hct (37.0-47.0) % MCV (82.0-92.0) fL MCH (27.0-31.0) pg MCHC (32.0-36.0) g/dL RDW (11.5-14.5) % Plt Count (150-400) 10^3/uL MPV (7.4-10.4) fL Immature Gran % (Auto) (0.0-5.0) % Neut % (Auto) (50.0-70.0) % Lymph % (Auto) (20.0-40.0) % Mcleod % (Auto) (2.0-8.0) % Eos % (Auto) (1.0-3.0) % Baso % (Auto) (0.0-1.0) % Neut # (Auto) (2.50-7.00) 10^3/uL Lymph # (Auto) (1.00-4.00) 10^3/uL Mcleod # (Auto) (0.10-0.80) 10^3/uL Eos # (Auto) (0.10-0.30) 10^3/uL Baso # (Auto) (0.00-0.10) 10^3/uL Immature Gran # (Auto) (0.00-0.50) 10^3/uL Sodium (136-145) mmol/L Potassium (3.5-5.1) mmol/L Chloride (98-107) mmol/L Carbon Dioxide (21.0-32.0) mmol/L Anion Gap (5-15) mmol/L BUN (7-18) mg/dL Creatinine (0.51-1.17) mg/dL Est Cr Clr Drug Dosing mL/min Estimated GFR (MDRD) mL/min Glucose (70-140) mg/dL POC Glucose 125 154 H 150 H (70-140) mg/dL Calcium (8.7-10.3) mg/dL Total Bilirubin (0.2-1.0) mg/dL AST (15-37) U/L ALT (14-63) U/L Alkaline Phosphatase (46-116) U/L Total Protein (6.4-8.2) g/dL Albumin (3.40-5.00) g/dL 06/24/21 06/25/21 06/25/21 Range/Units 21:33 07:05 07:05 WBC 4.85 L (5.00-10.00) 10^3/uL RBC 3.40 L (3.80-5.50) 10^6/uL Hgb 10.0 L (12.0-16.0) g/dL Hct 33.0 L (37.0-47.0) % MCV 97.1 H (82.0-92.0) fL MCH 29.4 (27.0-31.0) pg MCHC 30.3 L (32.0-36.0) g/dL RDW 14.6 H (11.5-14.5) % Plt Count 146 L (150-400) 10^3/uL MPV 10.1 (7.4-10.4) fL Immature Gran % (Auto) 0.2 (0.0-5.0) % Neut % (Auto) 66.4 (50.0-70.0) % Lymph % (Auto) 18.4 L (20.0-40.0) % Mcleod % (Auto) 7.6 (2.0-8.0) % Eos % (Auto) 7.0 H (1.0-3.0) % Baso % (Auto) 0.4 (0.0-1.0) % Neut # (Auto) 3.22 (2.50-7.00) 10^3/uL Lymph # (Auto) 0.89 L (1.00-4.00) 10^3/uL Mcleod # (Auto) 0.37 (0.10-0.80) 10^3/uL Eos # (Auto) 0.34 H (0.10-0.30) 10^3/uL Baso # (Auto) 0.02 (0.00-0.10) 10^3/uL Immature Gran # (Auto) 0.01 (0.00-0.50) 10^3/uL Sodium 141 (136-145) mmol/L Potassium 3.0 L (3.5-5.1) mmol/L Chloride 99 (98-107) mmol/L Carbon Dioxide 32.2 H (21.0-32.0) mmol/L Anion Gap 12.8 (5-15) mmol/L BUN 40 H (7-18) mg/dL Creatinine 1.18 H (0.51-1.17) mg/dL Est Cr Clr Drug Dosing 43.23 mL/min Estimated GFR (MDRD) 47 mL/min Glucose 153 H (70-140) mg/dL POC Glucose 120 (70-140) mg/dL Calcium 8.8 (8.7-10.3) mg/dL Total Bilirubin 0.6 (0.2-1.0) mg/dL AST 23 (15-37) U/L ALT 18 (14-63) U/L Alkaline Phosphatase 122 H (46-116) U/L Total Protein 8.6 H (6.4-8.2) g/dL Albumin 2.94 L (3.40-5.00) g/dL 06/25/21 06/25/21 Range/Units 07:05 11:33 WBC (5.00-10.00) 10^3/uL RBC (3.80-5.50) 10^6/uL Hgb (12.0-16.0) g/dL Hct (37.0-47.0) % MCV (82.0-92.0) fL MCH (27.0-31.0) pg MCHC (32.0-36.0) g/dL RDW (11.5-14.5) % Plt Count (150-400) 10^3/uL MPV (7.4-10.4) fL Immature Gran % (Auto) (0.0-5.0) % Neut % (Auto) (50.0-70.0) % Lymph % (Auto) (20.0-40.0) % Mcleod % (Auto) (2.0-8.0) % Eos % (Auto) (1.0-3.0) % Baso % (Auto) (0.0-1.0) % Neut # (Auto) (2.50-7.00) 10^3/uL Lymph # (Auto) (1.00-4.00) 10^3/uL Mcleod # (Auto) (0.10-0.80) 10^3/uL Eos # (Auto) (0.10-0.30) 10^3/uL Baso # (Auto) (0.00-0.10) 10^3/uL Immature Gran # (Auto) (0.00-0.50) 10^3/uL Sodium (136-145) mmol/L Potassium (3.5-5.1) mmol/L Chloride (98-107) mmol/L Carbon Dioxide (21.0-32.0) mmol/L Anion Gap (5-15) mmol/L BUN (7-18) mg/dL Creatinine (0.51-1.17) mg/dL Est Cr Clr Drug Dosing mL/min Estimated GFR (MDRD) mL/min Glucose (70-140) mg/dL POC Glucose 140 145 H (70-140) mg/dL Calcium (8.7-10.3) mg/dL Total Bilirubin (0.2-1.0) mg/dL AST (15-37) U/L ALT (14-63) U/L Alkaline Phosphatase (46-116) U/L Total Protein (6.4-8.2) g/dL Albumin (3.40-5.00) g/dL Ras Results Last 24 Hours: Microbiology 06/21/21 17:00 Aerobic Culture - Preliminary Leg, Left Staphylococcus Coagulase Neg Staphylococcus Coagulase Neg#2 Gram Stain - Final Anaerobic Culture - Preliminary Med Orders - Current: Current Medications Acetaminophen (Acetaminophen 500 Mg Tab) 1,000 mg PO Q6H PRN PRN Reason: Pain Last Admin: 06/25/21 02:21 Dose: 1,000 mg Documented by: Acetaminophen/Codeine Phosphate (Acetaminophen/Codeine 300-30 Mg Tab) 1 tab PO QID PRN PRN Reason: Pain Last Admin: 06/24/21 21:39 Dose: 1 tab Documented by: Acetazolamide (Acetazolamide 500 Mg Vial) 250 mg IVPUSH DAILY@0530 [facility] Last Admin: 06/25/21 05:30 Dose: 250 mg Documented by: Albuterol/Ipratropium (Albuterol/Ipratropium 3.0-0.5 Mg/3 Ml Neb Soln) 3 ml INH Q4H PRN PRN Reason: Dyspnea Allopurinol (Allopurinol 100 Mg Tab) 100 mg PO DAILY [facility] Last Admin: 06/25/21 08:22 Dose: 100 mg Documented by: Chlorothiazide (Chlorothiazide 500 Mg Vial) 250 mg IV 0530,1730 [facility] Last Admin: 06/25/21 05:30 Dose: 250 mg Documented by: Cyclobenzaprine HCl (Cyclobenzaprine 5 Mg Tab) 5 mg PO TID PRN PRN Reason: muscle relaxant Last Admin: 06/24/21 21:39 Dose: 5 mg Documented by: Dextrose/Water (50% Dextrose In Water 50 Ml Syringe) 50 ml IVPUSH ASDIRECTED PRN PRN Reason: Hypoglycemia Dextrose/Water (50% Dextrose In Water 50 Ml Syringe) 50 ml IVPUSH ASDIRECTED PRN PRN Reason: Hypoglycemia Docusate Sodium (Docusate Sodium 100 Mg Cap) 200 mg PO BEDTIME PRN PRN Reason: Constipation Doxycycline Hyclate (Doxycycline 50 Mg Cap) 100 mg PO BID [facility] Last Admin: 06/25/21 08:22 Dose: 100 mg Documented by: Ferrous Sulfate (Ferrous Sulfate 325 Mg Tab) 325 mg PO DAILY [facility] Last Admin: 06/25/21 08:22 Dose: 325 mg Documented by: Folic Acid (Folic Acid 1 Mg Tab) 1 mg PO DAILY [facility] Last Admin: 06/25/21 08:22 Dose: 1 mg Documented by: Furosemide (Furosemide 40 Mg/4 Ml Vial) 80 mg IVPUSH 0600,1200,1800 [facility] Last Admin: 06/25/21 06:08 Dose: 80 mg Documented by: Glucagon (Glucagon,Human Recombinant 1 Mg Vial) 1 mg IM ASDIRECTED PRN PRN Reason: Hypoglycemia Sodium Chloride (Normal Saline) 50 mls @ 100 mls/hr IV ASDIRECTED [facility] Insulin Aspart (Insulin Aspart 100 Units/Ml 3 Ml Pen) 50 unit SUBCUT 0800 [facility] Last Admin: 06/25/21 08:23 Dose: 50 units Documented by: Insulin Aspart (Insulin Aspart 100 Units/Ml 3 Ml Pen) 30 unit SUBCUT BID@1200,1800 [facility] Last Admin: 06/24/21 18:13 Dose: 30 unit Documented by: Insulin Glargine (Insulin Glargine,Hum.Rec.Anlog 100 Unit/Ml 3 Ml Pen) 32 unit SUBCUT BEDTIME [facility] Last Admin: 06/24/21 21:38 Dose: 32 unit Documented by: Lactobacillus Rhamnosus (Lactobacillus Rhamnosus Gg (Probiotic) Cap) 1 cap PO DAILY [facility] Last Admin: 06/25/21 08:22 Dose: 1 cap Documented by: Levothyroxine Sodium (Levothyroxine 75 Mcg Tab) 75 mcg PO [facility] Last Admin: 06/25/21 06:08 Dose: 75 mcg Documented by: Magnesium Oxide (Magnesium Oxide 500 Mg Tab) 500 mg PO DAILY [facility] Last Admin: 06/25/21 08:22 Dose: 500 mg Documented by: Mometasone Furoate/Formoterol Fumar (Formoterol/Mometasone 200-5 Mcg 8.8 Gm Inhaler) 2 puff IH BID [facility] Last Admin: 06/25/21 08:22 Dose: 2 puff Documented by: Tadalafil (Cialis) 20 Mg Tablet Own Med 20 mg PO DAILY [facility] Last Admin: 06/25/21 08:25 Dose: 20 mg Documented by: Ondansetron HCl (Ondansetron 4 Mg Tab.Dis) 4 mg PO Q6HR PRN PRN Reason: Nausea Pantoprazole Sodium (Pantoprazole 40 Mg Tab.Cr) 40 mg PO ACBRK [facility] Last Admin: 06/25/21 06:09 Dose: 40 mg Documented by: Polyethylene Glycol (Polyethylene Glycol 3350 Powder 17 Gm Packet) 17 gm PO DAILY PRN PRN Reason: Constipation Last Admin: 06/22/21 08:32 Dose: 17 gm Documented by: Potassium Chloride (Potassium Chloride 20 Meq Tab.Er) 80 meq PO WITHBREAKFAST [facility] Last Admin: 06/25/21 08:22 Dose: 80 meq Documented by: Potassium Chloride (Potassium Chloride 20 Meq Tab.Er) 60 meq PO 1800 [facility] Last Admin: 06/24/21 17:44 Dose: 60 meq Documented by: Spironolactone (Spironolactone 25 Mg Tab) 50 mg PO DAILY [facility] Last Admin: 06/25/21 08:22 Dose: 50 mg Documented by: Discontinued Medications Chlorothiazide (Chlorothiazide 500 Mg Vial) 250 mg IV TID [facility] Last Admin: 06/21/21 15:45 Dose: 250 mg Documented by: Chlorothiazide (Chlorothiazide 500 Mg Vial) 250 mg IV BID [facility] Furosemide (Furosemide 40 Mg/4 Ml Vial) 40 mg IVPUSH TID [facility] Last Admin: 06/21/21 15:47 Dose: 40 mg Documented by: Furosemide (Furosemide 40 Mg/4 Ml Vial) 80 mg IVPUSH TID [facility] Last Admin: 06/21/21 18:20 Dose: Not Given Documented by: Furosemide (Furosemide 40 Mg/4 Ml Vial) 40 mg IVPUSH NOW ONE Stop: 06/21/21 17:03 Last Admin: 06/21/21 17:29 Dose: 40 mg Documented by: Furosemide (Furosemide 40 Mg/4 Ml Vial) 40 mg IVPUSH ONETIME PRN PRN Reason: decreased urine output Stop: 06/21/21 20:00 Acetazolamide 250 mg/ Sodium (Chloride) 50 mls @ 100 mls/hr IV DAILY [facility] Insulin Aspart (Insulin Aspart 100 Units/Ml 3 Ml Pen) 50 unit SUBCUT BID@0800,1200 [facility] Last Admin: 06/24/21 11:18 Dose: Not Given Documented by: Insulin Aspart (Insulin Aspart 100 Units/Ml 3 Ml Pen) 30 unit SUBCUT DAILY@1800 [facility] Last Admin: 06/23/21 17:46 Dose: Not Given Documented by: Potassium Chloride (Potassium Chloride 10 Meq Tab.Er) 60 meq PO 1800 [facility] Last Admin: 06/22/21 17:53 Dose: 60 meq Documented by: Potassium Chloride (Potassium Chloride 10 Meq Tab.Er) 20 meq PO ONETIME ONE Stop: 06/23/21 09:46 Last Admin: 06/23/21 11:04 Dose: 20 meq Documented by: Potassium Chloride (Potassium Chloride 20 Meq Tab.Er) 40 meq PO ONETIME ONE Stop: 06/25/21 11:16 Spironolactone (Spironolactone 25 Mg Tab) 50 mg PO DAILY PRN PRN Reason: fluid retention - Exam General: Alert, Oriented HEENT: Pupils Equal, Pupils Reactive, EOMI, Mucous Membr. Moist/[place] Neck: Supple Lungs: Clear to Auscultation, Normal Respiratory Effort Cardiovascular: Regular Rate, Regular Rhythm GI/Abdominal Exam: Normal Bowel Sounds, Soft, Non-Tender, No Organomegaly, No Distention, No Abnormal Bruit, No Mass, Pelvis Stable, Other (Large pannus) (Female) Exam: Deferred Back Exam: Normal Inspection Extremities: Pedal Edema, Leg Pain (Minimal leg pain at this time surrounding the site of her open sore. She has been able to maintain dressing in place with nonadhering Telfa and Kerlix with the Curlex shifting with time and the amount of ambulation.) Skin: Warm, Dry Wound/Incisions: Drainage. No: Erythema Neurological: No New Focal Deficit Psy/Mental Status: Alert, Normal Affect, Normal Mood - Patient Data Lab Results Last 24 hrs: Laboratory Results - last 24 hr 06/24/21 06/24/21 06/24/21 Range/Units 11:58 15:14 17:43 WBC (5.00-10.00) 10^3/uL RBC (3.80-5.50) 10^6/uL Hgb (12.0-16.0) g/dL Hct (37.0-47.0) % MCV (82.0-92.0) fL MCH (27.0-31.0) pg MCHC (32.0-36.0) g/dL RDW (11.5-14.5) % Plt Count (150-400) 10^3/uL MPV (7.4-10.4) fL Immature Gran % (Auto) (0.0-5.0) % Neut % (Auto) (50.0-70.0) % Lymph % (Auto) (20.0-40.0) % Mcleod % (Auto) (2.0-8.0) % Eos % (Auto) (1.0-3.0) % Baso % (Auto) (0.0-1.0) % Neut # (Auto) (2.50-7.00) 10^3/uL Lymph # (Auto) (1.00-4.00) 10^3/uL Mcleod # (Auto) (0.10-0.80) 10^3/uL Eos # (Auto) (0.10-0.30) 10^3/uL Baso # (Auto) (0.00-0.10) 10^3/uL Immature Gran # (Auto) (0.00-0.50) 10^3/uL Sodium (136-145) mmol/L Potassium (3.5-5.1) mmol/L Chloride (98-107) mmol/L Carbon Dioxide (21.0-32.0) mmol/L Anion Gap (5-15) mmol/L BUN (7-18) mg/dL Creatinine (0.51-1.17) mg/dL Est Cr Clr Drug Dosing mL/min Estimated GFR (MDRD) mL/min Glucose (70-140) mg/dL POC Glucose 125 154 H 150 H (70-140) mg/dL Calcium (8.7-10.3) mg/dL Total Bilirubin (0.2-1.0) mg/dL AST (15-37) U/L ALT (14-63) U/L Alkaline Phosphatase (46-116) U/L Total Protein (6.4-8.2) g/dL Albumin (3.40-5.00) g/dL 06/24/21 06/25/21 06/25/21 Range/Units 21:33 07:05 07:05 WBC 4.85 L (5.00-10.00) 10^3/uL RBC 3.40 L (3.80-5.50) 10^6/uL Hgb 10.0 L (12.0-16.0) g/dL Hct 33.0 L (37.0-47.0) % MCV 97.1 H (82.0-92.0) fL MCH 29.4 (27.0-31.0) pg MCHC 30.3 L (32.0-36.0) g/dL RDW 14.6 H (11.5-14.5) % Plt Count 146 L (150-400) 10^3/uL MPV 10.1 (7.4-10.4) fL Immature Gran % (Auto) 0.2 (0.0-5.0) % Neut % (Auto) 66.4 (50.0-70.0) % Lymph % (Auto) 18.4 L (20.0-40.0) % Mcleod % (Auto) 7.6 (2.0-8.0) % Eos % (Auto) 7.0 H (1.0-3.0) % Baso % (Auto) 0.4 (0.0-1.0) % Neut # (Auto) 3.22 (2.50-7.00) 10^3/uL Lymph # (Auto) 0.89 L (1.00-4.00) 10^3/uL Mcleod # (Auto) 0.37 (0.10-0.80) 10^3/uL Eos # (Auto) 0.34 H (0.10-0.30) 10^3/uL Baso # (Auto) 0.02 (0.00-0.10) 10^3/uL Immature Gran # (Auto) 0.01 (0.00-0.50) 10^3/uL Sodium 141 (136-145) mmol/L Potassium 3.0 L (3.5-5.1) mmol/L Chloride 99 (98-107) mmol/L Carbon Dioxide 32.2 H (21.0-32.0) mmol/L Anion Gap 12.8 (5-15) mmol/L BUN 40 H (7-18) mg/dL Creatinine 1.18 H (0.51-1.17) mg/dL Est Cr Clr Drug Dosing 43.23 mL/min Estimated GFR (MDRD) 47 mL/min Glucose 153 H (70-140) mg/dL POC Glucose 120 (70-140) mg/dL Calcium 8.8 (8.7-10.3) mg/dL Total Bilirubin 0.6 (0.2-1.0) mg/dL AST 23 (15-37) U/L ALT 18 (14-63) U/L Alkaline Phosphatase 122 H (46-116) U/L Total Protein 8.6 H (6.4-8.2) g/dL Albumin 2.94 L (3.40-5.00) g/dL 06/25/21 06/25/21 Range/Units 07:05 11:33 WBC (5.00-10.00) 10^3/uL RBC (3.80-5.50) 10^6/uL Hgb (12.0-16.0) g/dL Hct (37.0-47.0) % MCV (82.0-92.0) fL MCH (27.0-31.0) pg MCHC (32.0-36.0) g/dL RDW (11.5-14.5) % Plt Count (150-400) 10^3/uL MPV (7.4-10.4) fL Immature Gran % (Auto) (0.0-5.0) % Neut % (Auto) (50.0-70.0) % Lymph % (Auto) (20.0-40.0) % Mcleod % (Auto) (2.0-8.0) % Eos % (Auto) (1.0-3.0) % Baso % (Auto) (0.0-1.0) % Neut # (Auto) (2.50-7.00) 10^3/uL Lymph # (Auto) (1.00-4.00) 10^3/uL Mcleod # (Auto) (0.10-0.80) 10^3/uL Eos # (Auto) (0.10-0.30) 10^3/uL Baso # (Auto) (0.00-0.10) 10^3/uL Immature Gran # (Auto) (0.00-0.50) 10^3/uL Sodium (136-145) mmol/L Potassium (3.5-5.1) mmol/L Chloride (98-107) mmol/L Carbon Dioxide (21.0-32.0) mmol/L Anion Gap (5-15) mmol/L BUN (7-18) mg/dL Creatinine (0.51-1.17) mg/dL Est Cr Clr Drug Dosing mL/min Estimated GFR (MDRD) mL/min Glucose (70-140) mg/dL POC Glucose 140 145 H (70-140) mg/dL Calcium (8.7-10.3) mg/dL Total Bilirubin (0.2-1.0) mg/dL AST (15-37) U/L ALT (14-63) U/L Alkaline Phosphatase (46-116) U/L Total Protein (6.4-8.2) g/dL Albumin (3.40-5.00) g/dL Result Diagrams: 06/25/21 07:05 06/25/21 07:05 Ras Results Last 24 hrs: Microbiology 06/21/21 17:00 Aerobic Culture - Preliminary Leg, Left Staphylococcus Coagulase Neg Staphylococcus Coagulase Neg#2 Gram Stain - Final Anaerobic Culture - Preliminary Sepsis Event Note - Evaluation Sepsis Screening Result: No Definite Risk - Focused Exam Vital Signs: Vital Signs Temp Pulse Resp BP Pulse Ox Pulse Ox 06/25/21 06:05 97 06/25/21 06:03 96.0 F L 60 16 127/64 97 - Problem List & Annotations (1) CHF (congestive heart failure) SNOMED Code(s): 72553918 Code(s): I50.9 - HEART FAILURE, UNSPECIFIED Status: Acute Priority: High Current Visit: Yes Qualifiers: Heart failure type: diastolic Heart failure chronicity: acute on chronic Qualified Code(s): I50.33 - Acute on chronic diastolic (congestive) heart failure (2) Pulmonary HTN SNOMED Code(s): 95890642 Code(s): I27.20 - PULMONARY HYPERTENSION, UNSPECIFIED Status: Chronic Priority: High Current Visit: Yes (3) COPD (chronic obstructive pulmonary disease) SNOMED Code(s): 85912555 Code(s): J44.9 - CHRONIC OBSTRUCTIVE PULMONARY DISEASE, UNSPECIFIED Status: Chronic Current Visit: Yes Qualifiers: Emphysema type: unspecified (4) DM (diabetes mellitus) SNOMED Code(s): 47497885 Code(s): E11.9 - TYPE 2 DIABETES MELLITUS WITHOUT COMPLICATIONS Status: Acute Priority: High Current Visit: Yes Qualifiers: Diabetes mellitus type: type 2 Diabetes mellitus lobsterman insulin use: with lobsterman use Diabetes mellitus complication status: with diabetic arthropathy (5) CKD (chronic kidney disease) stage 3, GFR 30-59 ml/min SNOMED Code(s): 825301649 Code(s): N18.30 - CHRONIC KIDNEY DISEASE, STAGE 3 UNSPECIFIED Status: Chronic Priority: High Current Visit: Yes Qualifiers: Chronic kidney disease stage 3 subtype: stage 3b (GFR 30-44) Qualified Code(s): N18.32 - Chronic kidney disease, stage 3b (6) Hypothyroid SNOMED Code(s): 40610917 Code(s): E03.9 - HYPOTHYROIDISM, UNSPECIFIED Status: Chronic Priority: Medium Current Visit: Yes Qualifiers: Hypothyroidism type: acquired Qualified Code(s): E03.9 - Hypothyroidism, unspecified (7) Skin breakdown SNOMED Code(s): 416142663 Code(s): R23.8 - OTHER SKIN CHANGES Status: Acute Priority: High Current Visit: Yes (8) Hx of gout SNOMED Code(s): 591510323 Code(s): Z87.39 - PERSONAL HISTORY OF DISEASES OF THE MS SYS AND CONN TISS Status: Chronic Priority: Medium Current Visit: Yes - Problem List Review Problem List Initiated/Reviewed/Updated: Yes - My Orders Last 24 Hours: My Active Orders 06/24/21 12:00 Insulin Aspart [NovoLOG] 30 unit SUBCUT BID@1200,1800 06/25/21 08:00 Insulin Aspart [NovoLOG] 50 unit SUBCUT 0800 - Assessment Assessment:: CHF. Continue diuresis as ordered. Skin breakdown. Will trial leaving Tegaderm in place after shower today to see if that is tolerated as no other coverings have been tolerated by her. Pulmonary hypertension. Continue medications with no changes at this time. COPD. Continue with treatments and oxygen as ordered. Diabetes mellitus insulin-dependent. 1 event of mild hypoglycemia which she recognized, will continue on current regimen and reevaluate today. Chronic kidney disease, stage III. Continue with cautious diuresis regimen. Hypothyroidism. Continue with current levothyroxine. History of gout. Continue with medications and surveillance. - Plan Plan:: Admission Diagnoses: Chronic Diastolic Heart Failure with exacerbation - Diuril 250 mg IV BID - Furosemide 80 mg IV TID, dose 30 minutes after AM and PM Diuril - Diamox 250 mg IV daily in AM with Diuril - Hold metolazone. Nadira had been taking daily and Dr. Veloz said to hold in the hospital and if needed, use only 3 times a week - Can consider increasing spironolactone to 100 mg PO daily - Dr. Urban Veloz office phone: [phone] - Sodium restriction 2 grams daily - Fluid restrictionn 1,500 mL daily Secondary Diagnoses: Pulmonary HTN - Tadalafil 20 mg PO daily Diabetes - Long acting insulin 32 units subcut daily - Short acting insulin 50-50-30, adjust per BG - BG TIDAC and HS CKD stage 3 - Daily labs Cirrhosis - Daily CMP ANDERS - Ferrous Sulfate 325 mg PO daily Constipation - Colace 200 mg PO daily PRN Hypothyroidism - 75 mcg PO daily Hypokalemia - 80 mEq q AM and 60 mEq q PM - Daily CMP Hypomagnesemia - Mag oxide 400 mg PO daily COPD - Advair 250/50 1 puff PO BID Gout - Allopurinol 100 mg PO daily Skin breakdown - Wound culture obtained - Cover with Aquacel and Telfa - Doxycycline 100 mg PO BID until culture is known CODE STATUS: No chest compressions or defibrillation but trial of intubation if indicated. Decrease in insulin to 30 units at noon was much beneficial as she experienced no hypoglycemic event. Will contact [facility] for primary Dr Veloz for discussion of discharge treatment dosing. Dr. Rose prefers that she return to her previous outpatient regiment at the time of her admission. He will plan to see her in roughly 3 weeks at [facility] and we will schedule her recheck post hospital visit here for next Monday with Dr. Haywood on the day she presents for her IV Diuril.
--- NOTE | 2021-06-25 13:08 | PCM.DCSUM1 ---
Discharge Summary - Hospital Course Free Text/Narrative:: Nadira, was admitted secondary of exacerbation of CHF/fluid retention on the 22 June after clinic visit with Dr. Haywood and in consult with her cardiology physician in [place] Dr. Urban Veloz a diuretic regimen was formulated in an attempt to get her down to her dry weight of 315 pounds. She also had sustained a blister formation on the left garza secondary of her increased fluid retention that had ruptured and had an irritation appearance, likely infected with culture obtained confirming Staphylococcus on preliminary report. She is done well with decrease in pain as her fluid levels come down, specifically to the left garza. Oxygen demand has fluctuated between her baseline 3 L up to four with activity but becoming less frequent on the day of discharge. She had two minor hypoglycemic events in the afternoon of the health in with an adjustment of her noon insulin from her home 50 units down to 30 units. This was done on the with no hypoglycemic events, glucose is running at would be attributed to her normal levels. Diagnosis: Stroke: No - Discharge Data Discharge Date: 06/25/21 Discharge Disposition: Home, Self-Care 01 Condition: Good - Referral to Home Health Date of Face to Face Encounter: 06/25/21 Primary Care Physician: Ariela Argueta MD - Discharge Diagnosis/Problem(s) (1) CHF (congestive heart failure) SNOMED Code(s): 68716378 ICD Code: I50.9 - HEART FAILURE, UNSPECIFIED Status: Acute Priority: High Current Visit: Yes Qualifiers: Heart failure type: diastolic Heart failure chronicity: acute on chronic Qualified Code(s): I50.33 - Acute on chronic diastolic (congestive) heart failure (2) Pulmonary HTN SNOMED Code(s): 25923438 ICD Code: I27.20 - PULMONARY HYPERTENSION, UNSPECIFIED Status: Chronic Priority: High Current Visit: Yes (3) COPD (chronic obstructive pulmonary disease) SNOMED Code(s): 39720482 ICD Code: J44.9 - CHRONIC OBSTRUCTIVE PULMONARY DISEASE, UNSPECIFIED Status: Chronic Current Visit: Yes Qualifiers: Emphysema type: unspecified (4) DM (diabetes mellitus) SNOMED Code(s): 59558513 ICD Code: E11.9 - TYPE 2 DIABETES MELLITUS WITHOUT COMPLICATIONS Status: Acute Priority: High Current Visit: Yes Qualifiers: Diabetes mellitus type: type 2 Diabetes mellitus ocean transportation intermediary insulin use: with ocean transportation intermediary use Diabetes mellitus complication status: with diabetic arthropathy (5) CKD (chronic kidney disease) stage 3, GFR 30-59 ml/min SNOMED Code(s): 375543018 ICD Code: N18.30 - CHRONIC KIDNEY DISEASE, STAGE 3 UNSPECIFIED Status: Chronic Priority: High Current Visit: Yes Qualifiers: Chronic kidney disease stage 3 subtype: stage 3b (GFR 30-44) Qualified Code(s): N18.32 - Chronic kidney disease, stage 3b (6) Hypothyroid SNOMED Code(s): 72453201 ICD Code: E03.9 - HYPOTHYROIDISM, UNSPECIFIED Status: Chronic Priority: Medium Current Visit: Yes Qualifiers: Hypothyroidism type: acquired Qualified Code(s): E03.9 - Hypothyroidism, unspecified (7) Skin breakdown SNOMED Code(s): 215048726 ICD Code: R23.8 - OTHER SKIN CHANGES Status: Acute Priority: High Current Visit: Yes (8) Hx of gout SNOMED Code(s): 118453876 ICD Code: Z87.39 - PERSONAL HISTORY OF DISEASES OF THE MS SYS AND CONN TISS Status: Chronic Priority: Medium Current Visit: Yes - Patient Instructions Diet: Heart Healthy Diet, Low Sodium, Fluid Restriction Fluid Restriction: 2000 mL Activity: As Tolerated Driving: Do Not Drive Showering/Bathing: May Shower Wound/Incision Care: Change Dressing Daily Notify Provider of: Fever, Increased Pain, Swelling and Redness - Discharge Plan *PRESCRIPTION DRUG MONITORING PROGRAM REVIEWED*: Not Applicable *COPY OF PRESCRIPTION DRUG MONITORING REPORT IN PATIENT [place]: Not Applicable Prescriptions/Med Rec: Doxycycline [Vibramycin] 100 mg PO BID 4 Days #8 cap Home Medications: Home Meds Acetaminophen [Acetaminophen Extra Strength] 1,000 mg PO Q6H PRN 10/21/20 [History] Albuterol/Ipratropium [DuoNeb 3.0-0.5 MG/3 ML] 1 ampule INH Q4H PRN 10/21/20 [History] Cyclobenzaprine [Flexeril] 5 mg PO TID PRN 10/21/20 [History] Docusate Sodium [Colace] 200 mg PO BEDTIME PRN 10/21/20 [History] Ferrous Sulfate 325 mg PO DAILY 10/21/20 [History] Fexofenadine HCl 180 mg PO DAILY PRN 10/21/20 [History] Fluticasone/Salmeterol [Advair 250-50] 1 puff INH BID 10/21/20 [History] Folic Acid 1 mg PO DAILY 10/21/20 [History] Furosemide in 0.9 % NaCl [Furosemide 100 mg/100 ml-Ns] 200 mg IV DAILY 10/21/20 [History] Insulin Aspart [NovoLOG] 50 units SUBCUT ASDIRECTED 10/21/20 [History] Insulin Glargine,Hum.Rec.Anlog [Basaglar Kwikpen U-100] 32 unit SUBCUT BEDTIME 10/21/20 [History] L.acidoph,Paracasei, B.lactis [Probiotic] 1 cap PO DAILY 10/21/20 [History] Levothyroxine Sodium [Levoxyl] 75 mcg PO DAILY 10/21/20 [History] Magnesium Oxide 400 mg PO DAILY 10/21/20 [History] Ondansetron [Zofran ODT] 4 mg PO Q6HR PRN 10/21/20 [History] Potassium Chloride 80 meq PO WITHBREAKFAST 10/21/20 [History] Spironolactone 50 mg PO DAILY 10/21/20 [History] Tadalafil [Cialis] 20 mg PO DAILY 10/21/20 [History] Triamcinolone Acetonide [Triamcinolone Acetonide 0.5% Oint] 1 gm TOP BID PRN 10/21/20 [History] allopurinoL [Zyloprim] 100 mg PO DAILY 10/21/20 [History] polyethylene glycoL 3350 [MiraLAX] 17 gm PO DAILY PRN 10/21/20 [History] Acetaminophen/Codeine [Tylenol with Codeine No.3 300MG/30MG] 1 tab PO QID PRN 06/21/21 [History] Chlorothiazide Sodium 250 mg IV WEEKLY 06/21/21 [History] Omeprazole 40 mg PO DAILY 06/21/21 [History] Potassium Chloride 60 meq PO 1800 06/21/21 [History] metOLazone [Metolazone] 5 mg PO DAILY PRN 06/21/21 [History] Doxycycline [Vibramycin] 100 mg PO BID 4 Days #8 cap 06/25/21 [Rx] Glucagon,Human Recombinant [Glucagen] 1 mg IM ASDIRECTED PRN vial 06/25/21 [Rx] Insulin Aspart [NovoLOG] 30 unit SUBCUT BID@1200,1800 pen 06/25/21 [Rx] Oxygen Therapy Mode: Nasal Cannula Oxygen Flow Rate (L/min): 3 Referrals: Ariela Argueta MD [Primary Care Provider] - - Discharge Summary/Plan Comment DC Time >30 min.: Yes Total # of Minutes for Discharge Time: 45 Discharge Summary/Plan Comment: Will be discharged home on the same medication regiment as previously used prior to admission. The only addition will be the doxycycline 100 mg twice daily for the next 4 days. Plan will be for her to arrive at roughly 0930 hrs. on Monday the at which time IV Diuril will be given and blood draw for her electrolytes will be obtained. She will then see Dr. Haywood for a post hospital visit at roughly 1030. Dr. Veloz will see her in roughly 3 weeks when he does his rounds at [place]. - General Info Date of Service: 06/25/21 Admission Dx/Problem (Free Text: Nadira was admitted for fluid overload with mild electrolyte imbalance, left garza integument irritation secondary of edematous blistering. She is culture pending on the left leg wound. She commented that she had not been fully compliant with diuretic protocol secondary of activities to which the Lasix limited her function due to frequent bathroom trips. Subjective Update: Nadira was admitted 06/21 from the clinic for CHF exacerbation with volume overload. Her weight was 328, dry weight is 315 so she was 13 pounds over her dry weight. Under the guidance of her production team member, Dr. Veloz, a regimen of diuresis was initiated on 06/21. Last evening she received Diuril 250 mg IV as well as a total of 120 mg of IV lasix. She is down 3 pounds this morning. She was up only once last night to urinate. She has an open sore on her left garza that was painful. She will ask for her Tylenol #3 tonight for pain, she does not want anything else. No calls overnight. This morning she feels her breathing is "much better". She has much improved discomfort to the wound on her left garza with it starting to scab over at this time. Preliminary culture for Staphylococcus. She states she is feeling much better and is anxious for discharge today stating that she did get her Dexcom monitors update and will be able to implement that as soon as she gets home. She feels better that she experienced no hypoglycemic event as we decreased her noon insulin from 50 units down to 30 units yesterday. She has limited ambulation yesterday secondary of discomfort to the leg but states she kept it elevated as much as possible and did walk some in the room with the use of the 4 legged walker. Functional Status: Reports: Pain Controlled - Review of Systems General: Reports: No Symptoms HEENT: Reports: No Symptoms Pulmonary: Reports: Shortness of Breath (Chronic in nature) Cardiovascular: Denies: Chest Pain Gastrointestinal: Reports: No Symptoms Genitourinary: Reports: No Symptoms Musculoskeletal: Reports: Leg Pain (In the vicinity of her skin wound) Skin: Reports: Other (Skin lesion is starting to scab over on the left garza) Neurological: Reports: No Symptoms Psychiatric: Reports: No Symptoms - Patient Data Vitals - Most Recent: Last Vital Signs Temp 96.0 F L 06/25/21 06:03 Pulse 60 06/25/21 06:03 Resp 16 06/25/21 06:03 BP 127/64 06/25/21 06:03 Pulse Ox 97 06/25/21 06:05 Weight - Most Recent: 313 lb 3 oz I&O - Last 24 hours: Intake & Output 06/24/21 06/25/21 06/25/21 22:59 06:59 14:59 Intake Total 450 100 Output Total 2300 200 Balance -1850 -100 Lab Results - Last 24 hrs: Laboratory Results - last 24 hr 06/24/21 06/24/21 06/24/21 Range/Units 15:14 17:43 21:33 WBC (5.00-10.00) 10^3/uL RBC (3.80-5.50) 10^6/uL Hgb (12.0-16.0) g/dL Hct (37.0-47.0) % MCV (82.0-92.0) fL MCH (27.0-31.0) pg MCHC (32.0-36.0) g/dL RDW (11.5-14.5) % Plt Count (150-400) 10^3/uL MPV (7.4-10.4) fL Immature Gran % (Auto) (0.0-5.0) % Neut % (Auto) (50.0-70.0) % Lymph % (Auto) (20.0-40.0) % [place] % (Auto) (2.0-8.0) % Eos % (Auto) (1.0-3.0) % Baso % (Auto) (0.0-1.0) % Neut # (Auto) (2.50-7.00) 10^3/uL Lymph # (Auto) (1.00-4.00) 10^3/uL [place] # (Auto) (0.10-0.80) 10^3/uL Eos # (Auto) (0.10-0.30) 10^3/uL Baso # (Auto) (0.00-0.10) 10^3/uL Immature Gran # (Auto) (0.00-0.50) 10^3/uL Sodium (136-145) mmol/L Potassium (3.5-5.1) mmol/L Chloride (98-107) mmol/L Carbon Dioxide (21.0-32.0) mmol/L Anion Gap (5-15) mmol/L BUN (7-18) mg/dL Creatinine (0.51-1.17) mg/dL Est Cr Clr Drug Dosing mL/min Estimated GFR (MDRD) mL/min Glucose (70-140) mg/dL POC Glucose 154 H 150 H 120 (70-140) mg/dL Calcium (8.7-10.3) mg/dL Total Bilirubin (0.2-1.0) mg/dL AST (15-37) U/L ALT (14-63) U/L Alkaline Phosphatase (46-116) U/L Total Protein (6.4-8.2) g/dL Albumin (3.40-5.00) g/dL 06/25/21 06/25/21 06/25/21 Range/Units 07:05 07:05 07:05 WBC 4.85 L (5.00-10.00) 10^3/uL RBC 3.40 L (3.80-5.50) 10^6/uL Hgb 10.0 L (12.0-16.0) g/dL Hct 33.0 L (37.0-47.0) % MCV 97.1 H (82.0-92.0) fL MCH 29.4 (27.0-31.0) pg MCHC 30.3 L (32.0-36.0) g/dL RDW 14.6 H (11.5-14.5) % Plt Count 146 L (150-400) 10^3/uL MPV 10.1 (7.4-10.4) fL Immature Gran % (Auto) 0.2 (0.0-5.0) % Neut % (Auto) 66.4 (50.0-70.0) % Lymph % (Auto) 18.4 L (20.0-40.0) % [place] % (Auto) 7.6 (2.0-8.0) % Eos % (Auto) 7.0 H (1.0-3.0) % Baso % (Auto) 0.4 (0.0-1.0) % Neut # (Auto) 3.22 (2.50-7.00) 10^3/uL Lymph # (Auto) 0.89 L (1.00-4.00) 10^3/uL [place] # (Auto) 0.37 (0.10-0.80) 10^3/uL Eos # (Auto) 0.34 H (0.10-0.30) 10^3/uL Baso # (Auto) 0.02 (0.00-0.10) 10^3/uL Immature Gran # (Auto) 0.01 (0.00-0.50) 10^3/uL Sodium 141 (136-145) mmol/L Potassium 3.0 L (3.5-5.1) mmol/L Chloride 99 (98-107) mmol/L Carbon Dioxide 32.2 H (21.0-32.0) mmol/L Anion Gap 12.8 (5-15) mmol/L BUN 40 H (7-18) mg/dL Creatinine 1.18 H (0.51-1.17) mg/dL Est Cr Clr Drug Dosing 43.23 mL/min Estimated GFR (MDRD) 47 mL/min Glucose 153 H (70-140) mg/dL POC Glucose 140 (70-140) mg/dL Calcium 8.8 (8.7-10.3) mg/dL Total Bilirubin 0.6 (0.2-1.0) mg/dL AST 23 (15-37) U/L ALT 18 (14-63) U/L Alkaline Phosphatase 122 H (46-116) U/L Total Protein 8.6 H (6.4-8.2) g/dL Albumin 2.94 L (3.40-5.00) g/dL 06/25/ Range/Units 11:33 WBC (5.00-10.00) 10^3/uL RBC (3.80-5.50) 10^6/uL Hgb (12.0-16.0) g/dL Hct (37.0-47.0) % MCV (82.0-92.0) fL MCH (27.0-31.0) pg MCHC (32.0-36.0) g/dL RDW (11.5-14.5) % Plt Count (150-400) 10^3/uL MPV (7.4-10.4) fL Immature Gran % (Auto) (0.0-5.0) % Neut % (Auto) (50.0-70.0) % Lymph % (Auto) (20.0-40.0) % [place] % (Auto) (2.0-8.0) % Eos % (Auto) (1.0-3.0) % Baso % (Auto) (0.0-1.0) % Neut # (Auto) (2.50-7.00) 10^3/uL Lymph # (Auto) (1.00-4.00) 10^3/uL [place] # (Auto) (0.10-0.80) 10^3/uL Eos # (Auto) (0.10-0.30) 10^3/uL Baso # (Auto) (0.00-0.10) 10^3/uL Immature Gran # (Auto) (0.00-0.50) 10^3/uL Sodium (136-145) mmol/L Potassium (3.5-5.1) mmol/L Chloride (98-107) mmol/L Carbon Dioxide (21.0-32.0) mmol/L Anion Gap (5-15) mmol/L BUN (7-18) mg/dL Creatinine (0.51-1.17) mg/dL Est Cr Clr Drug Dosing mL/min Estimated GFR (MDRD) mL/min Glucose (70-140) mg/dL POC Glucose 145 H (70-140) mg/dL Calcium (8.7-10.3) mg/dL Total Bilirubin (0.2-1.0) mg/dL AST (15-37) U/L ALT (14-63) U/L Alkaline Phosphatase (46-116) U/L Total Protein (6.4-8.2) g/dL Albumin (3.40-5.00) g/dL [facility] Results - Last 24 hrs: Microbiology 06/21/21 17:00 Aerobic Culture - Preliminary Leg, Left Staphylococcus Coagulase Neg Staphylococcus Coagulase Neg#2 Gram Stain - Final Anaerobic Culture - Preliminary Med Orders - Current: Current Medications Acetaminophen (Acetaminophen 500 Mg Tab) 1,000 mg PO Q6H PRN PRN Reason: Pain Last Admin: 06/25/21 02:21 Dose: 1,000 mg Documented by: Acetaminophen/Codeine Phosphate (Acetaminophen/Codeine 300-30 Mg Tab) 1 tab PO QID PRN PRN Reason: Pain Last Admin: 06/24/21 21:39 Dose: 1 tab Documented by: Acetazolamide (Acetazolamide 500 Mg Vial) 250 mg IVPUSH DAILY@0530 [facility] Last Admin: 06/25/21 05:30 Dose: 250 mg Documented by: Albuterol/Ipratropium (Albuterol/Ipratropium 3.0-0.5 Mg/3 Ml Neb Soln) 3 ml INH Q4H PRN PRN Reason: Dyspnea Allopurinol (Allopurinol 100 Mg Tab) 100 mg PO DAILY [facility] Last Admin: 06/25/21 08:22 Dose: 100 mg Documented by: Chlorothiazide (Chlorothiazide 500 Mg Vial) 250 mg IV 0530,1730 [facility] Last Admin: 06/25/21 05:30 Dose: 250 mg Documented by: Cyclobenzaprine HCl (Cyclobenzaprine 5 Mg Tab) 5 mg PO TID PRN PRN Reason: muscle relaxant Last Admin: 06/24/21 21:39 Dose: 5 mg Documented by: Dextrose/Water (50% Dextrose In Water 50 Ml Syringe) 50 ml IVPUSH ASDIRECTED PRN PRN Reason: Hypoglycemia Dextrose/Water (50% Dextrose In Water 50 Ml Syringe) 50 ml IVPUSH ASDIRECTED PRN PRN Reason: Hypoglycemia Docusate Sodium (Docusate Sodium 100 Mg Cap) 200 mg PO BEDTIME PRN PRN Reason: Constipation Doxycycline Hyclate (Doxycycline 50 Mg Cap) 100 mg PO BID [facility] Last Admin: 06/25/21 08:22 Dose: 100 mg Documented by: Ferrous Sulfate (Ferrous Sulfate 325 Mg Tab) 325 mg PO DAILY [facility] Last Admin: 06/25/21 08:22 Dose: 325 mg Documented by: Folic Acid (Folic Acid 1 Mg Tab) 1 mg PO DAILY [facility] Last Admin: 06/25/21 08:22 Dose: 1 mg Documented by: Furosemide (Furosemide 40 Mg/4 Ml Vial) 80 mg IVPUSH 0600,1200,1800 [facility] Last Admin: 06/25/21 12:26 Dose: 80 mg Documented by: Glucagon (Glucagon,Human Recombinant 1 Mg Vial) 1 mg IM ASDIRECTED PRN PRN Reason: Hypoglycemia Sodium Chloride (Normal Saline) 50 mls @ 100 mls/hr IV ASDIRECTED [facility] Insulin Aspart (Insulin Aspart 100 Units/Ml 3 Ml Pen) 50 unit SUBCUT 0800 [facility] Last Admin: 06/25/21 08:23 Dose: 50 units Documented by: Insulin Aspart (Insulin Aspart 100 Units/Ml 3 Ml Pen) 30 unit SUBCUT BID@1200,1800 [facility] Last Admin: 06/25/21 12:26 Dose: 30 unit Documented by: Insulin Glargine (Insulin Glargine,Hum.Rec.Anlog 100 Unit/Ml 3 Ml Pen) 32 unit SUBCUT BEDTIME [facility] Last Admin: 06/24/21 21:38 Dose: 32 unit Documented by: Lactobacillus Rhamnosus (Lactobacillus Rhamnosus Gg (Probiotic) Cap) 1 cap PO DAILY [facility] Last Admin: 06/25/21 08:22 Dose: 1 cap Documented by: Levothyroxine Sodium (Levothyroxine 75 Mcg Tab) 75 mcg PO ACBRK [facility] Last Admin: 06/25/21 06:08 Dose: 75 mcg Documented by: Magnesium Oxide (Magnesium Oxide 500 Mg Tab) 500 mg PO DAILY [facility] Last Admin: 06/25/21 08:22 Dose: 500 mg Documented by: Mometasone Furoate/Formoterol Fumar (Formoterol/Mometasone 200-5 Mcg 8.8 Gm Inhaler) 2 puff IH BID [facility] Last Admin: 06/25/21 08:22 Dose: 2 puff Documented by: Tadalafil (Cialis) 20 Mg Tablet Own Med 20 mg PO DAILY [facility] Last Admin: 06/25/21 08:25 Dose: 20 mg Documented by: Ondansetron HCl (Ondansetron 4 Mg Tab.Dis) 4 mg PO Q6HR PRN PRN Reason: Nausea Pantoprazole Sodium (Pantoprazole 40 Mg Tab.Cr) 40 mg PO ACBRK [facility] Last Admin: 06/25/21 06:09 Dose: 40 mg Documented by: Polyethylene Glycol (Polyethylene Glycol 3350 Powder 17 Gm Packet) 17 gm PO DAILY PRN PRN Reason: Constipation Last Admin: 06/22/21 08:32 Dose: 17 gm Documented by: Potassium Chloride (Potassium Chloride 20 Meq Tab.Er) 80 meq PO WITHBREAKFAST [facility] Last Admin: 06/25/21 08:22 Dose: 80 meq Documented by: Potassium Chloride (Potassium Chloride 20 Meq Tab.Er) 60 meq PO 1800 [facility] Last Admin: 06/24/21 17:44 Dose: 60 meq Documented by: Spironolactone (Spironolactone 25 Mg Tab) 50 mg PO DAILY [facility] Last Admin: 06/25/21 08:22 Dose: 50 mg Documented by: Discontinued Medications Chlorothiazide (Chlorothiazide 500 Mg Vial) 250 mg IV TID [facility] Last Admin: 06/21/21 15:45 Dose: 250 mg Documented by: Chlorothiazide (Chlorothiazide 500 Mg Vial) 250 mg IV BID [facility] Furosemide (Furosemide 40 Mg/4 Ml Vial) 40 mg IVPUSH TID [facility] Last Admin: 06/21/21 15:47 Dose: 40 mg Documented by: Furosemide (Furosemide 40 Mg/4 Ml Vial) 80 mg IVPUSH TID [facility] Last Admin: 06/21/21 18:20 Dose: Not Given Documented by: Furosemide (Furosemide 40 Mg/4 Ml Vial) 40 mg IVPUSH NOW ONE Stop: 06/21/21 17:03 Last Admin: 06/21/21 17:29 Dose: 40 mg Documented by: Furosemide (Furosemide 40 Mg/4 Ml Vial) 40 mg IVPUSH ONETIME PRN PRN Reason: decreased urine output Stop: 06/21/21 20:00 Acetazolamide 250 mg/ Sodium (Chloride) 50 mls @ 100 mls/hr IV DAILY [facility] Insulin Aspart (Insulin Aspart 100 Units/Ml 3 Ml Pen) 50 unit SUBCUT BID@0800,1200 [facility] Last Admin: 06/24/21 11:18 Dose: Not Given Documented by: Insulin Aspart (Insulin Aspart 100 Units/Ml 3 Ml Pen) 30 unit SUBCUT DAILY@1800 [facility] Last Admin: 06/23/21 17:46 Dose: Not Given Documented by: Potassium Chloride (Potassium Chloride 10 Meq Tab.Er) 60 meq PO 1800 [facility] Last Admin: 06/22/21 17:53 Dose: 60 meq Documented by: Potassium Chloride (Potassium Chloride 10 Meq Tab.Er) 20 meq PO ONETIME ONE Stop: 06/23/21 09:46 Last Admin: 06/23/21 11:04 Dose: 20 meq Documented by: Potassium Chloride (Potassium Chloride 20 Meq Tab.Er) 40 meq PO ONETIME ONE Stop: 06/25/21 11:16 Last Admin: 06/25/21 12:25 Dose: 40 meq Documented by: Spironolactone (Spironolactone 25 Mg Tab) 50 mg PO DAILY PRN PRN Reason: fluid retention - Exam Quality Assessment: Reports: Supplemental Oxygen General: Reports: Alert, Oriented HEENT: Reports: Pupils Equal, Pupils Reactive, EOMI, Mucous Membr. Moist/[place] Neck: Reports: Supple Lungs: Reports: Clear to Auscultation (Mildly diminished bases combination of pulmonary disease and body habitus) Cardiovascular: Reports: Regular Rate, Regular Rhythm GI/Abdominal Exam: Normal Bowel Sounds, Soft, Non-Tender, No Organomegaly, No Distention, No Abnormal Bruit, No Mass, Pelvis Stable (Female) Exam: Deferred Rectal (Female) Exam: Deferred Back Exam: Reports: Normal Inspection Extremities: Pedal Edema, Other (Skin lesions starting to scab over.) Skin: Reports: Warm, Dry, Intact Wound/Incisions: Reports: Drainage (Moist) Neurological: Reports: No New Focal Deficit Psy/Mental Status: Reports: Alert, Normal Affect, Normal Mood
== END 2021-06-25 13:30 | disposition home or self-care (01) | DRG 291 ==
LOC: KA.MS 14:28 → UNDOADMIN 14:28
PROVIDERS: ADMIT Internal Medicine; ATTEND Internal Medicine
DX: I13.0 Hypertensive heart and chronic kidney disease with heart failure and stage 1 through stage 4 chronic kidney disease, or unspecified chronic kidney disease (principal); I50.33 Acute on chronic diastolic (congestive) heart failure; E87.6 Hypokalemia; I27.20 Pulmonary hypertension, unspecified; J44.9 Chronic obstructive pulmonary disease, unspecified; N18.32 Chronic kidney disease, stage 3b; E03.9 Hypothyroidism, unspecified; R23.8 Other skin changes; E11.22 Type 2 diabetes mellitus with diabetic chronic kidney disease; Z20.822 Contact with and (suspected) exposure to COVID-19; K59.09 Other constipation; E11.42 Type 2 diabetes mellitus with diabetic polyneuropathy; F32.A Depression, unspecified; F41.9 Anxiety disorder, unspecified; D63.1 Anemia in chronic kidney disease; E78.00 Pure hypercholesterolemia, unspecified; D50.9 Iron deficiency anemia, unspecified; K74.60 Unspecified cirrhosis of liver; Z87.39 Personal history of other diseases of the musculoskeletal system and connective tissue; Z88.1 Allergy status to other antibiotic agents; Z88.2 Allergy status to sulfonamides; Z79.4 Long term (current) use of insulin; Z79.890 Hormone replacement therapy; Z79.899 Other long term (current) drug therapy; Z99.81 Dependence on supplemental oxygen
CPT/HCPCS: 36415; 80053; 82947; 83735; 85025; 87070; 87075; 87205; A9270-GY; J1120; J1205; J1815-GY; J1940; U0002

== ENCOUNTER 2021-09-12 17:32 | Inpatient (IN) | payer MEDICARE, MEDICAID ==
[2021-09-12 18:30] LABS: ANION GAP 13.1 mmol/L (5-15)
--- NOTE | 2021-09-12 18:48 | EDM.PDOC ---
ED HPI GENERAL MEDICAL PROBLEM - General Chief Complaint: Cardiovascular Problem Stated Complaint: SHORT OF BREATH Time Seen by Provider: 09/12/21 18:22 Source of Information: Reports: Patient, Family (dtr) History Limitations: Reports: No Limitations - History of Present Illness INITIAL COMMENTS - FREE TEXT/NARRATIVE: Patient presents with shortness of breath, fluid-related weight gain, chest pain, and general joint pain she thinks is due to all the fluid retention. She is taking the diuretics as directed. She has had 35 pounds of weight gain she told the nurse. She told me that the last 10 pounds of weight gain was very quick. She says the chest pain has been intermittent the last few days, worse when she is active and subsides at rest. - Related Data Allergies Allergy/AdvReac Type Severity Reaction Status Date / Time levofloxacin Allergy Difficulty Verified 09/12/21 18:08 Breathing lisinopril Allergy Cough Verified 09/12/21 18:08 prednisone Allergy Cannot Verified 09/12/21 18:08 Remember Sulfa (Sulfonamide Allergy Rash Verified 09/12/21 18:08 Antibiotics) Home Meds: Home Meds Acetaminophen [Acetaminophen Extra Strength] 500 - 1,000 mg PO Q6H PRN 10/21/20 [History] Albuterol/Ipratropium [DuoNeb 3.0-0.5 MG/3 ML] 1 ml INH Q4H PRN 10/21/20 [History] Cyclobenzaprine [Flexeril] 5 mg PO TID PRN 10/21/20 [History] Docusate Sodium [Colace] 200 mg PO BEDTIME PRN 10/21/20 [History] Ferrous Sulfate 325 mg PO DAILY 10/21/20 [History] Fexofenadine HCl 180 mg PO DAILY PRN 10/21/20 [History] Fluticasone/Salmeterol [Advair 250-50] 1 puff INH BID 10/21/20 [History] Folic Acid 1 mg PO DAILY 10/21/20 [History] Furosemide in 0.9 % NaCl [Furosemide 100 mg/100 ml-Ns] 200 mg IV DAILY 10/21/20 [History] Insulin Aspart [NovoLOG] 50 units SUBCUT BID@08,12 10/21/20 [History] Insulin Glargine,Hum.Rec.Anlog [Basaglar Kwikpen U-100] 32 unit SUBCUT BEDTIME 10/21/20 [History] L.acidoph,Paracasei, B.lactis [Probiotic] 1 cap PO DAILY 10/21/20 [History] Levothyroxine Sodium [Levoxyl] 75 mcg PO DAILY 10/21/20 [History] Magnesium Oxide 400 mg PO DAILY 10/21/20 [History] Ondansetron [Zofran ODT] 4 mg PO Q6HR PRN 10/21/20 [History] Potassium Chloride 80 meq PO WITHBREAKFAST 10/21/20 [History] Spironolactone 50 mg PO DAILY 10/21/20 [History] Tadalafil [Cialis] 20 mg PO DAILY 10/21/20 [History] Triamcinolone Acetonide [Triamcinolone Acetonide 0.5% Oint] 1 gm TOP BID PRN 10/21/20 [History] allopurinoL [Zyloprim] 100 mg PO DAILY 10/21/20 [History] polyethylene glycoL 3350 [MiraLAX] 17 gm PO DAILY PRN 10/21/20 [History] Acetaminophen/Codeine [Tylenol with Codeine No.3 300MG/30MG] 1 tab PO QID PRN 06/21/21 [History] Chlorothiazide Sodium 250 mg IV WE 06/21/21 [History] Omeprazole 40 mg PO DAILY 06/21/21 [History] Potassium Chloride 60 meq PO 1800 06/21/21 [History] metOLazone [Metolazone] 5 mg PO DAILY PRN 06/21/21 [History] Glucagon,Human Recombinant [Glucagen] 1 mg IM ASDIRECTED PRN vial 06/25/21 [Rx] Diclofenac Sodium [Voltaren 1% Gel] 2 gm TOP QID PRN 09/12/21 [History] Furosemide [Lasix] 100 mg IV PCLUNCH PRN 09/12/21 [History] Furosemide [Lasix] 400 mg PO ASDIRECTED 09/12/21 [History] Insulin Aspart [NovoLOG] 30 unit SUBCUT DAILY@1800 09/12/21 [History] Non-Formulary Medication [NF Drug] 250 mg PO ASDIRECTED 09/12/21 [History] Past Medical History HEENT History: Reports: Allergic Rhinitis Cardiovascular History: Reports: CAD, Heart Failure, High Cholesterol, Hypertension, Pulmonary Hypertension, Other (See Below) Other Cardiovascular History: Varicosities. Venous Insufficiency Respiratory History: Reports: COPD, Sleep Apnea, Other (See Below) Other Respiratory History: on 4l oxygen per [place] Gastrointestinal History: Reports: Chronic Constipation, GERD Other Gastrointestinal History: Liver disease Musculoskeletal History: Reports: Gout Neurological History: Reports: Neuropathy, Peripheral Psychiatric History: Reports: Anxiety, Depression Endocrine/Metabolic History: Reports: Diabetes, Type II, IDDM, Obesity/BMI 30+, Vitamin D Deficiency Hematologic History: Reports: Anemia, Blood Transfusion(s), Iron Deficiency - Infectious Disease History Infectious Disease History: Reports: MRSA Social & Family History - Family History Family Medical History: No Pertinent Family History - Caffeine Use Caffeine Use: Reports: Coffee ED ROS GENERAL - Review of Systems Review Of Systems: See Below Constitutional: Denies: Fever, Chills, Malaise HEENT: Denies: Ear Pain, Throat Pain, Vision Change Respiratory: Reports: Shortness of Breath Cardiovascular: Reports: Chest Pain, Edema. Denies: Syncope GI/Abdominal: Reports: Abdominal Pain (low abdomen where the fluid is accumulating), Nausea. Denies: Diarrhea, Vomiting : Reports: Frequency (usually very frequent but late in the day it slows down) Musculoskeletal: Reports: No Symptoms Skin: Denies: Cyanosis, Jaundice, Mottled, Pallor, Diaphoresis Psychiatric: Denies: Agitation, Anxiety, Confusion ED EXAM, GENERAL - Physical Exam Exam: See Below Exam Limited By: No Limitations General Appearance: Alert, WD/WN, No Apparent Distress Eye Exam: Bilateral Eye: EOMI, Normal Inspection, PERRL Ears: Normal External Exam, Hearing Grossly Normal Nose: Normal Inspection, No Blood Throat/Mouth: Normal Inspection, Normal Lips, Normal Voice, No Airway Compromise Head: Atraumatic, Normocephalic Neck: Normal Inspection, Full Range of Motion Respiratory/Chest: No Respiratory Distress, Lungs Clear (quite clear but faint rales in left lung base picked up once in a while) Cardiovascular: Regular Rate, Rhythm, No Murmur GI/Abdominal: Other (firm to palpation, somewhat like induration, along the lower, dependent abdomen that overhangs her knees.) Back Exam: Normal Inspection, Full Range of Motion Extremities: Pedal Edema (bilat legs and feet) Neurological: Alert, Oriented, Normal Cognition, No Motor/Sensory Deficits Psychiatric: Normal Affect, Normal Mood Skin Exam: Warm, Dry, Intact, Normal Color, No Rash Course - Vital Signs Last Recorded V/S: Last Vital Signs Temp 98.4 F 09/12/21 17:45 Pulse 74 09/12/21 19:44 Resp 18 09/12/21 19:44 BP 124/51 L 09/12/21 19:44 Pulse Ox 94 L 09/12/21 19:44 - Orders/Labs/Meds Orders: Active Orders 24 hr Category Date Time Status Patient Status [ADT] Routine ADT 09/12/21 20:05 Ordered CORONAVIRUS COVID-19 RAPID [MOLEC] Stat Lab 09/12/21 20:05 Ordered Code Status [Resuscitation Status] Stat Resus Stat 09/12/21 20:11 Ordered EKG 12 Lead [EK] Stat Ther 09/12/21 18:36 Ordered Labs: Laboratory Tests 09/12/21 09/12/21 09/12/21 Range/Units 18:04 18:04 18:05 WBC 5.47 (5.00-10.00) 10^3/uL RBC 3.23 L (3.80-5.50) 10^6/uL Hgb 9.5 L (12.0-16.0) g/dL Hct 30.3 L (37.0-47.0) % MCV 93.8 H (82.0-92.0) fL MCH 29.4 (27.0-31.0) pg MCHC 31.4 L (32.0-36.0) g/dL RDW 16.0 H (11.5-14.5) % Plt Count 141 L (150-400) 10^3/uL MPV 9.8 (7.4-10.4) fL Immature Gran % (Auto) 0.7 (0.0-5.0) % Neut % (Auto) 75.3 H (50.0-70.0) % Lymph % (Auto) 12.4 L (20.0-40.0) % [place] % (Auto) 6.9 (2.0-8.0) % Eos % (Auto) 4.0 H (1.0-3.0) % Baso % (Auto) 0.7 (0.0-1.0) % Neut # (Auto) 4.11 (2.50-7.00) 10^3/uL Lymph # (Auto) 0.68 L (1.00-4.00) 10^3/uL [place] # (Auto) 0.38 (0.10-0.80) 10^3/uL Eos # (Auto) 0.22 (0.10-0.30) 10^3/uL Baso # (Auto) 0.04 (0.00-0.10) 10^3/uL Immature Gran # (Auto) 0.04 (0.00-0.50) 10^3/uL Sodium 130 L (136-145) mmol/L Potassium 3.9 (3.5-5.1) mmol/L Chloride 96 L (98-107) mmol/L Carbon Dioxide 24.8 (21.0-32.0) mmol/L Anion Gap 13.1 (5-15) mmol/L BUN 48 H (7-18) mg/dL Creatinine 1.30 H (0.51-1.17) mg/dL Est Cr Clr Drug Dosing 37.59 mL/min Estimated GFR (MDRD) 42 mL/min Glucose 248 H (70-140) mg/dL Calcium 8.7 (8.7-10.3) mg/dL Total Bilirubin 0.9 (0.2-1.0) mg/dL AST 27 (15-37) U/L ALT 18 (14-63) U/L Alkaline Phosphatase 136 H (46-116) U/L Troponin I High Sens 22.000 (0-51.000) pg/mL B-Natriuretic Peptide 284 H (0-100) pg/mL Total Protein 8.5 H (6.4-8.2) g/dL Albumin 3.13 L (3.40-5.00) g/dL Meds: Medications Discontinued Medications Generic Name Dose Route Start Last Admin Trade Name Freq PRN Reason Stop Dose Admin Furosemide 100 mg 09/12/21 20:11 Furosemide 40 Mg/4 Ml Vial IVPUSH 09/12/21 20:12 NOW ONE - Re-Assessments/Exams Free Text/Narrative Re-Assessment/Exam: 09/12/21 19:19 CXR shows Cardiomegaly and central vascular congestion similar to prior exam. Again also diffuse bilateral symmetric interstitial thickening. No infiltrate, pleural effusion or pneumothorax. CBC okay. BNP 284 with no prior comparisons. CMP is inline with recent comparisons. Troponin normal. EKG shows NSR with rate of 76. 09/12/21 19:24 She takes Lasix 200 IV through PICC line qam at home and 100 mg in afternoon prn. The last few days she has needed the second dose but today didn't take it because she was trying line up the trip to ER. She also come to hospital weekly for diuril IV. Also uses Zaroxolyn and Spironolactone at home daily. 09/12/21 20:12 I discussed case with Dr. Maravilla who prefers that patient is transferred to [facility] in [place] so cardiology can be involved if needed. I called there and they have no beds available due to staffing shortage. Dr. Maravilla accepts for admission and will consult Dr. Veloz in [place] as needed. Discussed fi ndings and plan with patient and her daughter. Patient is agreeable with admission here for treatment. Will give Lasix 100 mg IVP in ER then admission. Patient stable. Departure - Departure Time of Disposition: 20:23 Disposition: Admitted As Inpatient 65 Condition: Fair Clinical Impression: Fluid retention CHF exacerbation Qualifiers: Heart failure type: diastolic Qualified Code(s): I50.33 - Acute on chronic diastolic (congestive) heart failure Referrals: Ariela Argueta MD [Primary Care Provider] - Forms: ED Department Discharge Sepsis Event Note (ED) - Evaluation Sepsis Screening Result: No Definite Risk - Focused Exam Vital Signs: Vital Signs Temp Pulse Resp BP Pulse Ox 09/12/21 19:44 74 18 124/51 L 94 L 09/12/21 19:15 70 12 125/67 95 09/12/21 19:00 74 16 130/64 09/12/21 17:45 98.4 F 84 21 H 145/64 H 97 - My Orders Last 24 Hours: My Active Orders 09/12/21 18:36 EKG 12 Lead [EK] Stat 09/12/21 20:05 Patient Status [ADT] Routine CORONAVIRUS COVID-19 RAPID [MOLEC] Stat 09/12/21 20:11 Code Status [Resuscitation Status] Stat - Assessment/Plan Last 24 Hours: My Active Orders 09/12/21 18:36 EKG 12 Lead [EK] Stat 09/12/21 20:05 Patient Status [ADT] Routine CORONAVIRUS COVID-19 RAPID [MOLEC] Stat 09/12/21 20:11 Code Status [Resuscitation Status] Stat
--- NOTE | 2021-09-12 18:53 | CR ---
[id number] RAD/RAD Chest PA And Lateral EXAM: RAD Chest PA And Lateral INDICATION: SOB COMPARISON: August 11, 2021. DISCUSSION/IMPRESSION: Cardiomegaly and central vascular congestion similar to prior examination. Again seen is diffuse bilateral symmetric interstitial thickening. No change from the prior examination. Right-sided PICC in place with tip in the mid SVC. No pleural effusion or pneumothorax. Ra Correia MD 09/12/21 [id number] Thank you for allowing us to participate in the care of your patient.
[2021-09-12] MEDS ORDERED: Furosemide 40 MG/4 ML VIAL IVPUSH ONE (20:11)
[2021-09-12] MEDS ORDERED: Diclofenac Sodium 1% Gel 100 GM Tube TOP PRN (20:48)
[2021-09-12] MEDS ORDERED: Glucagon,Human Recombinant 1 MG Vial IM PRN ×2 (20:48)
[2021-09-12] MEDS ORDERED: Polyethylene Glycol 3350 Powder 17 GM Packet PO PRN (20:48)
[2021-09-12] MEDS ORDERED: Ondansetron 4 MG Tab.DIS PO PRN (20:48)
[2021-09-12] MEDS ORDERED: 50% Dextrose in Water 50 ML Syringe IVPUSH PRN (20:48)
[2021-09-12] MEDS ORDERED: Non-Formulary Medication 1 Each (Fexofenadine Hcl [Fexofenadine Hcl] 180 MG Tablet) PO PRN (20:48)
[2021-09-12] MEDS ORDERED: Albuterol/Ipratropium 3.0-0.5 MG/3 ML Neb Soln INH PRN (20:48)
[2021-09-12] MEDS ORDERED: Docusate Sodium 100 MG Cap PO PRN (20:48)
[2021-09-12] MEDS ORDERED: Non-Formulary Medication 1 Each PO SCH (21:00)
--- NOTE | 2021-09-12 21:12 | PCM.PN ---
- General Info Date of Service: 09/12/21 Admission Dx/Problem (Free Text): Chronic diastolic heart failure with exacerbation. - Review of Systems Systems Review Comment:: 09/12: Nadira is admitted through the ER with weight gain due to edema. She stated to the ER provider she has been compliant with her diuretic regimen aside from this afternoon as she has had weight gain and was going to be traveling to the ER for evaluation. She is followed by Dr. Urban Veloz, cardiology from [place], [place]. She is in a regimen of Diuril 250 mg IV twice weekly (she sometimes only does this once weekly) via chronic PICC line and also furosemide 100 mg IV daily and an additional 100 mg IV in the afternoon for weight gain as well as spironolactone 50 mg PO daily. Her dry weight from a discharge in [place] was 326 but Nadira identifies her dry weight as 315. She has been as low as 309. She is currently 350 (352 with clothing and shoes on). She has not been in contact with either myself or Dr. Veloz with her weight gain. She has been admitted in the past with aggressive diuresis per Dr. Veloz but she was not this heavy at that time. She reports to the ED provider that "that last 10 pounds came on really fast". I would have preferred she be transferred to [facility] due to the degree of diuresis she will need but they were full and not taking admissions from outlying facilities. - Patient Data Vitals - Most Recent: Last Vital Signs Temp 97.0 F 09/12/21 20:33 Pulse 73 09/12/21 20:33 Resp 16 09/12/21 20:33 BP 129/55 L 09/12/21 20:33 Pulse Ox 96 09/12/21 20:33 Weight - Most Recent: 352 lb 8 oz Lab Results Last 24 Hours: Laboratory Results - last 24 hr 09/12/21 09/12/21 09/12/21 Range/Units 18:04 18:04 18:05 WBC 5.47 (5.00-10.00) 10^3/uL RBC 3.23 L (3.80-5.50) 10^6/uL Hgb 9.5 L (12.0-16.0) g/dL Hct 30.3 L (37.0-47.0) % MCV 93.8 H (82.0-92.0) fL MCH 29.4 (27.0-31.0) pg MCHC 31.4 L (32.0-36.0) g/dL RDW 16.0 H (11.5-14.5) % Plt Count 141 L (150-400) 10^3/uL MPV 9.8 (7.4-10.4) fL Immature Gran % (Auto) 0.7 (0.0-5.0) % Neut % (Auto) 75.3 H (50.0-70.0) % Lymph % (Auto) 12.4 L (20.0-40.0) % Toombs % (Auto) 6.9 (2.0-8.0) % Eos % (Auto) 4.0 H (1.0-3.0) % Baso % (Auto) 0.7 (0.0-1.0) % Neut # (Auto) 4.11 (2.50-7.00) 10^3/uL Lymph # (Auto) 0.68 L (1.00-4.00) 10^3/uL Toombs # (Auto) 0.38 (0.10-0.80) 10^3/uL Eos # (Auto) 0.22 (0.10-0.30) 10^3/uL Baso # (Auto) 0.04 (0.00-0.10) 10^3/uL Immature Gran # (Auto) 0.04 (0.00-0.50) 10^3/uL Sodium 130 L (136-145) mmol/L Potassium 3.9 (3.5-5.1) mmol/L Chloride 96 L (98-107) mmol/L Carbon Dioxide 24.8 (21.0-32.0) mmol/L Anion Gap 13.1 (5-15) mmol/L BUN 48 H (7-18) mg/dL Creatinine 1.30 H (0.51-1.17) mg/dL Est Cr Clr Drug Dosing 37.59 mL/min Estimated GFR (MDRD) 42 mL/min Glucose 248 H (70-140) mg/dL Calcium 8.7 (8.7-10.3) mg/dL Total Bilirubin 0.9 (0.2-1.0) mg/dL AST 27 (15-37) U/L ALT 18 (14-63) U/L Alkaline Phosphatase 136 H (46-116) U/L Troponin I High Sens 22.000 (0-51.000) pg/mL B-Natriuretic Peptide 284 H (0-100) pg/mL Total Protein 8.5 H (6.4-8.2) g/dL Albumin 3.13 L (3.40-5.00) g/dL SARS CoV-2 RNA Rapid DREW (NEGATIVE) 09/12/21 Range/Units 20:05 WBC (5.00-10.00) 10^3/uL RBC (3.80-5.50) 10^6/uL Hgb (12.0-16.0) g/dL Hct (37.0-47.0) % MCV (82.0-92.0) fL MCH (27.0-31.0) pg MCHC (32.0-36.0) g/dL RDW (11.5-14.5) % Plt Count (150-400) 10^3/uL MPV (7.4-10.4) fL Immature Gran % (Auto) (0.0-5.0) % Neut % (Auto) (50.0-70.0) % Lymph % (Auto) (20.0-40.0) % Toombs % (Auto) (2.0-8.0) % Eos % (Auto) (1.0-3.0) % Baso % (Auto) (0.0-1.0) % Neut # (Auto) (2.50-7.00) 10^3/uL Lymph # (Auto) (1.00-4.00) 10^3/uL Toombs # (Auto) (0.10-0.80) 10^3/uL Eos # (Auto) (0.10-0.30) 10^3/uL Baso # (Auto) (0.00-0.10) 10^3/uL Immature Gran # (Auto) (0.00-0.50) 10^3/uL Sodium (136-145) mmol/L Potassium (3.5-5.1) mmol/L Chloride (98-107) mmol/L Carbon Dioxide (21.0-32.0) mmol/L Anion Gap (5-15) mmol/L BUN (7-18) mg/dL Creatinine (0.51-1.17) mg/dL Est Cr Clr Drug Dosing mL/min Estimated GFR (MDRD) mL/min Glucose (70-140) mg/dL Calcium (8.7-10.3) mg/dL Total Bilirubin (0.2-1.0) mg/dL AST (15-37) U/L ALT (14-63) U/L Alkaline Phosphatase (46-116) U/L Troponin I High Sens (0-51.000) pg/mL B-Natriuretic Peptide (0-100) pg/mL Total Protein (6.4-8.2) g/dL Albumin (3.40-5.00) g/dL SARS CoV-2 RNA Rapid DREW Negative (NEGATIVE) Med Orders - Current: Current Medications Acetaminophen (Acetaminophen 500 Mg Tab) 500 - 1,000 mg PO Q6H PRN PRN Reason: Pain Acetaminophen/Codeine Phosphate (Acetaminophen/Codeine 300-30 Mg Tab) 1 tab PO QID PRN PRN Reason: Pain Albuterol/Ipratropium (Albuterol/Ipratropium 3.0-0.5 Mg/3 Ml Neb Soln) 1 ml INH Q4H PRN PRN Reason: Dyspnea Allopurinol (Allopurinol 100 Mg Tab) 100 mg PO DAILY [facility] Chlorothiazide (Chlorothiazide 500 Mg Vial) 250 mg IV Q12H [facility] Cyclobenzaprine HCl (Cyclobenzaprine 5 Mg Tab) 5 mg PO TID PRN PRN Reason: muscle relaxant Dextrose/Water (50% Dextrose In Water 50 Ml Syringe) 50 ml IVPUSH ASDIRECTED PRN PRN Reason: Hypoglycemia Diclofenac Sodium (Diclofenac Sodium 1% Gel 100 Gm Tube) 2 gm TOP QID PRN PRN Reason: Pain Docusate Sodium (Docusate Sodium 100 Mg Cap) 200 mg PO BEDTIME PRN PRN Reason: Constipation Ferrous Sulfate (Ferrous Sulfate 325 Mg Tab) 325 mg PO DAILY [facility] Folic Acid (Folic Acid 1 Mg Tab) 1 mg PO DAILY [facility] Furosemide (Furosemide 40 Mg/4 Ml Vial) 80 mg IVPUSH TID [facility] Glucagon (Glucagon,Human Recombinant 1 Mg Vial) 1 mg IM ASDIRECTED PRN PRN Reason: Hypoglycemia Acetazolamide 250 mg/ Sodium (Chloride) 50 mls @ 100 mls/hr IV DAILY [facility] Insulin Aspart (Insulin Aspart 100 Units/Ml 3 Ml Pen) 30 unit SUBCUT DAILY@1800 [facility] Insulin Aspart (Insulin Aspart 100 Units/Ml 3 Ml Pen) 50 unit SUBCUT 0800,1200 [facility] Levothyroxine Sodium (Levothyroxine 75 Mcg Tab) 75 mcg PO ACBRK [facility] Non-Formulary Medication (Fexofenadine Hcl [Fexofenadine Hcl]) 180 mg PO DAILY PRN PRN Reason: Shortness of Breath Non-Formulary Medication (Fluticasone/Salmeterol) 1 puff INH BID [facility] Non-Formulary Medication (Insulin Glarg,Human.Rec.Analog) 32 unit SUBCUT BEDTIME [facility] Non-Formulary Medication (L.Acidoph,Paracasei, B.Lactis [Probiotic]) 1 cap PO DAILY [facility] Non-Formulary Medication (Magnesium Oxide [Magnesium Oxide]) 400 mg PO DAILY [facility] Non-Formulary Medication (Non-Formulary Medication 1 Each) each PO ASDIRECTED [facility] Non-Formulary Medication (Omeprazole [Omeprazole]) 40 mg PO DAILY [facility] Non-Formulary Medication (Potassium Chloride [Potassium Chloride]) 80 meq PO WI THBREAKFAST [facility] Non-Formulary Medication (Spironolactone [Spironolactone]) 50 mg PO DAILY [facility] Non-Formulary Medication (Tadalafil [Cialis]) 20 mg PO DAILY [facility] Non-Formulary Medication (Triamcinolone Acetonide) 1 gm TOP BID PRN PRN Reason: Rash Ondansetron HCl (Ondansetron 4 Mg Tab.Dis) 4 mg PO Q6HR PRN PRN Reason: Nausea Polyethylene Glycol (Polyethylene Glycol 3350 Powder 17 Gm Packet) 17 gm PO DAILY PRN PRN Reason: Constipation Potassium Chloride (Potassium Chloride 10 Meq Tab.Er) 60 meq PO 1800 [facility] Discontinued Medications Furosemide (Furosemide 40 Mg/4 Ml Vial) 100 mg IVPUSH NOW ONE Stop: 09/12/21 20:12 Last Admin: 09/12/21 20:18 Dose: 100 mg Documented by: Glucagon (Glucagon,Human Recombinant 1 Mg Vial) 1 mg IM ASDIRECTED PRN PRN Reason: Hypoglycemia - Patient Data Lab Results Last 24 hrs: Laboratory Results - last 24 hr 09/12/21 09/12/21 09/12/21 Range/Units 18:04 18:04 18:05 WBC 5.47 (5.00-10.00) 10^3/uL RBC 3.23 L (3.80-5.50) 10^6/uL Hgb 9.5 L (12.0-16.0) g/dL Hct 30.3 L (37.0-47.0) % MCV 93.8 H (82.0-92.0) fL MCH 29.4 (27.0-31.0) pg MCHC 31.4 L (32.0-36.0) g/dL RDW 16.0 H (11.5-14.5) % Plt Count 141 L (150-400) 10^3/uL MPV 9.8 (7.4-10.4) fL Immature Gran % (Auto) 0.7 (0.0-5.0) % Neut % (Auto) 75.3 H (50.0-70.0) % Lymph % (Auto) 12.4 L (20.0-40.0) % Toombs % (Auto) 6.9 (2.0-8.0) % Eos % (Auto) 4.0 H (1.0-3.0) % Baso % (Auto) 0.7 (0.0-1.0) % Neut # (Auto) 4.11 (2.50-7.00) 10^3/uL Lymph # (Auto) 0.68 L (1.00-4.00) 10^3/uL Toombs # (Auto) 0.38 (0.10-0.80) 10^3/uL Eos # (Auto) 0.22 (0.10-0.30) 10^3/uL Baso # (Auto) 0.04 (0.00-0.10) 10^3/uL Immature Gran # (Auto) 0.04 (0.00-0.50) 10^3/uL Sodium 130 L (136-145) mmol/L Potassium 3.9 (3.5-5.1) mmol/L Chloride 96 L (98-107) mmol/L Carbon Dioxide 24.8 (21.0-32.0) mmol/L Anion Gap 13.1 (5-15) mmol/L BUN 48 H (7-18) mg/dL Creatinine 1.30 H (0.51-1.17) mg/dL Est Cr Clr Drug Dosing 37.59 mL/min Estimated GFR (MDRD) 42 mL/min Glucose 248 H (70-140) mg/dL Calcium 8.7 (8.7-10.3) mg/dL Total Bilirubin 0.9 (0.2-1.0) mg/dL AST 27 (15-37) U/L ALT 18 (14-63) U/L Alkaline Phosphatase 136 H (46-116) U/L Troponin I High Sens 22.000 (0-51.000) pg/mL B-Natriuretic Peptide 284 H (0-100) pg/mL Total Protein 8.5 H (6.4-8.2) g/dL Albumin 3.13 L (3.40-5.00) g/dL SARS CoV-2 RNA Rapid DREW (NEGATIVE) 09/12/21 Range/Units 20:05 WBC (5.00-10.00) 10^3/uL RBC (3.80-5.50) 10^6/uL Hgb (12.0-16.0) g/dL Hct (37.0-47.0) % MCV (82.0-92.0) fL MCH (27.0-31.0) pg MCHC (32.0-36.0) g/dL RDW (11.5-14.5) % Plt Count (150-400) 10^3/uL MPV (7.4-10.4) fL Immature Gran % (Auto) (0.0-5.0) % Neut % (Auto) (50.0-70.0) % Lymph % (Auto) (20.0-40.0) % Toombs % (Auto) (2.0-8.0) % Eos % (Auto) (1.0-3.0) % Baso % (Auto) (0.0-1.0) % Neut # (Auto) (2.50-7.00) 10^3/uL Lymph # (Auto) (1.00-4.00) 10^3/uL Toombs # (Auto) (0.10-0.80) 10^3/uL Eos # (Auto) (0.10-0.30) 10^3/uL Baso # (Auto) (0.00-0.10) 10^3/uL Immature Gran # (Auto) (0.00-0.50) 10^3/uL Sodium (136-145) mmol/L Potassium (3.5-5.1) mmol/L Chloride (98-107) mmol/L Carbon Dioxide (21.0-32.0) mmol/L Anion Gap (5-15) mmol/L BUN (7-18) mg/dL Creatinine (0.51-1.17) mg/dL Est Cr Clr Drug Dosing mL/min Estimated GFR (MDRD) mL/min Glucose (70-140) mg/dL Calcium (8.7-10.3) mg/dL Total Bilirubin (0.2-1.0) mg/dL AST (15-37) U/L ALT (14-63) U/L Alkaline Phosphatase (46-116) U/L Troponin I High Sens (0-51.000) pg/mL B-Natriuretic Peptide (0-100) pg/mL Total Protein (6.4-8.2) g/dL Albumin (3.40-5.00) g/dL SARS CoV-2 RNA Rapid DREW Negative (NEGATIVE) Result Diagrams: 09/12/21 18:04 09/12/21 18:04 Sepsis Event Note - Evaluation Sepsis Screening Result: No Definite Risk - Focused Exam Vital Signs: Vital Signs Temp Pulse Resp BP Pulse Ox 09/12/21 20:33 97.0 F 73 16 129/55 L 96 09/12/21 19:44 74 18 124/51 L 94 L 09/12/21 19:15 70 12 125/67 95 09/12/21 19:00 74 16 130/64 09/12/21 17:45 98.4 F 84 21 H 145/64 H 97 - Problem List Review Problem List Initiated/Reviewed/Updated: Yes - My Orders Last 24 Hours: My Active Orders 09/12/21 20:45 Blood Glucose Check, Bedside [RC] QIDACANDBED Oxygen Therapy [RC] PRN Up With Assistance [RC] ASDIRECTED VTE/DVT Education [RC] PER UNIT ROUTINE Vital Signs [RC] Q4H 09/12/21 20:48 Intake and Output [RC] 1400,2200,0600 Weight Daily [Height and Weight] [RC] DAILY Acetaminophen [Tylenol Extra Strength] 500 - 1,000 mg PO Q6H PRN Acetaminophen/Codeine [Tylenol with Codeine No.3 300MG/30MG] 1 tab PO QID PRN Albuterol/Ipratropium [DuoNeb 3.0-0.5 MG/3 ML] 1 ml INH Q4H PRN Cyclobenzaprine [Flexeril] 5 mg PO TID PRN Dextrose 50% in Water 50 ml IVPUSH ASDIRECTED PRN Diclofenac Sodium [Voltaren 1% Gel] 2 gm TOP QID PRN Docusate Sodium [Colace] 200 mg PO BEDTIME PRN Glucagon,Human Recombinant [GlucaGen] 1 mg IM ASDIRECTED PRN Ondansetron [Zofran ODT] 4 mg PO Q6HR PRN polyethylene glycoL 3350 [MiraLAX] 17 gm PO DAILY PRN 09/12/21 20:48 Fexofenadine HCl [Fexofenadine HCl] 180 mg PO DAILY PRN Triamcinolone Acetonide 1 gm TOP BID PRN 09/12/21 20:52 RT Aerosol Therapy [RC] ASDIRECTED 09/12/21 21:00 Fluticasone/Salmeterol 1 puff INH BID Insulin Glarg,Human.Rec.Analog 32 unit SUBCUT BEDTIME Non-Formulary Medication [NF Drug] 250 mg PO ASDIRECTED 09/13/21 05:11 CBC WITH AUTO DIFF [HEME] AM COMPREHENSIVE METABOLIC PN,CMP [CHEM] AM MAGNESIUM [CHEM] AM 09/13/21 Breakfast 2 Gram Sodium Diet [DIET] Fluid Restriction [DIET] Chlorothiazide 250 mg IV Q12H Insulin Aspart [NovoLOG] 50 unit SUBCUT BID@08,12 Potassium Chloride [Potassium Chloride] 80 meq PO WITHBREAKFAST acetaZOLAMIDE [Diamox] 250 mg Sodium Chloride 0.9% [Normal Saline] 50 ml IV DAILY 09/13/21 08:30 Furosemide [Lasix] 80 mg IVPUSH TID 09/13/21 09:00 Ferrous Sulfate 325 mg PO DAILY Folic Acid 1 mg PO DAILY L.acidoph,Paracasei, B.lactis [Probiotic] 1 cap PO DAILY Levothyroxine 75 mcg PO DAILY Magnesium Oxide [Magnesium Oxide] 400 mg PO DAILY Omeprazole [Omeprazole] 40 mg PO DAILY Spironolactone [Spironolactone] 50 mg PO DAILY Tadalafil [Cialis] 20 mg PO DAILY allopurinoL [Zyloprim] 100 mg PO DAILY 09/13/21 18:00 Insulin Aspart [NovoLOG] 30 unit SUBCUT DAILY@1800 Potassium Chloride [Klor-Con 10] 60 meq PO 1800 09/14/21 05:11 CBC WITH AUTO DIFF [HEME] AM COMPREHENSIVE METABOLIC PN,CMP [CHEM] AM 09/15/21 05:11 CBC WITH AUTO DIFF [HEME] AM COMPREHENSIVE METABOLIC PN,CMP [CHEM] AM 09/16/21 05:11 CBC WITH AUTO DIFF [HEME] AM COMPREHENSIVE METABOLIC PN,CMP [CHEM] AM 09/17/21 05:11 CBC WITH AUTO DIFF [HEME] AM COMPREHENSIVE METABOLIC PN,CMP [CHEM] AM - Assessment Assessment:: Admission Diagnosis: Chronic diastolic heart failure with exacerbation: - Furosemide 100 mg IV 1/2 in ER - Diuril 250 mg IV BID starting 09/13 - Furosemide 80 mg IV TID, giving AM and PM dose 30 minutes after diuril starting 09/13 - Diamox 250 mg IV daily starting 09/13 - Spironolactone 50 mg PO daily, can increase to 100 mg PO daily if indicated - Metolazone 2.5 mg PO M// if indicated - 2 gram sodium diet - Fluid restriction 1500 mL daily - I/O - Daily weights - Dr. Veloz office: [phone] Secondary Diagnoses: Pulmonary HTN - Tadalafil 20 mg PO daily DM - Insulin glargine 32 units subcut qhs - Novolog 50-50-30 - BG TIDAC and HS CKD 3 - Daily CMP ANDERS - Ferrous Sulfate 325 mg PO daily - Daily CBC Hypothyroidism - Levothyroxine 75 mcg PO daily Hypokalemia - Potassium Chloride 80 mEq q AM and 60 mEq q PM Hypomag - Mag Oxide 400 mg PO daily COPD - Advair 250/50 one puff PO BID Gout - Allopurinol 100 mg PO daily Acid Reflux - Omeprazole 40 mg PO daily CODE STATUS: DNR with trial of intubation
[2021-09-12] MEDS ORDERED: Potassium Chloride 10 MEQ Tab.ER PO ONE (21:30)
[2021-09-12] MEDS ORDERED: Triamcinolone Acetonide 0.1% Oint 15 GM Tube TOP PRN (21:31)
[2021-09-12] MEDS: Insulin Glargine,Hum.Rec.Anlog 100 UNIT/ML 3 ML Pen SUBCUT SCH (22:03)
[2021-09-12] MEDS: Acetaminophen 500 MG Tab PO PRN (22:10)
[2021-09-12] MEDS: Cyclobenzaprine 5 MG Tab PO PRN (22:11)
[2021-09-12] MEDS ORDERED: Formoterol/Mometasone 200-5 MCG 13 GM Inhaler INH ONE (22:30)
[2021-09-13] MEDS: Pantoprazole 40 MG Tab.CR PO SCH ×2 (06:05→06:30)
[2021-09-13] MEDS: Levothyroxine 75 MCG Tab PO SCH (06:05)
[2021-09-13 07:56] LABS: ANION GAP 15.7 mmol/L (5-15)
[2021-09-13] MEDS ORDERED: Potassium Chloride 10 MEQ Tab.ER PO SCH (08:00)
[2021-09-13] MEDS ORDERED: acetaZOLAMIDE 250 MG in Sodium Chloride 0.9% 50 ML IV SCH (08:00)
[2021-09-13] MEDS ORDERED: Insulin Aspart 100 Units/ML 3 ML Pen SUBCUT SCH (08:00)
[2021-09-13] MEDS ORDERED: Furosemide 40 MG/4 ML VIAL IVPUSH SCH (08:30)
[2021-09-13] MEDS: Potassium Chloride 20 MEQ Tab.ER PO SCH ×2 (08:38→17:55)
[2021-09-13] MEDS: Spironolactone 25 MG Tab PO SCH (08:39)
[2021-09-13] MEDS: Ferrous Sulfate 325 MG Tab PO SCH (08:39)
[2021-09-13] MEDS: Formoterol/Mometasone 200-5 MCG 13 GM Inhaler INH SCH ×2 (08:39→20:25)
[2021-09-13] MEDS: Allopurinol 100 MG Tab PO SCH (08:39)
[2021-09-13] MEDS: Folic Acid 1 MG Tab PO SCH (08:39)
[2021-09-13] MEDS: Magnesium Oxide 500 MG Tab PO SCH (08:39)
[2021-09-13] MEDS ORDERED: Sodium Chloride 0.9% 50 ML ONE (08:51)
[2021-09-13] MEDS ORDERED: Non-Formulary Medication 1 Each (L.Acidoph,Paracasei, B.Lactis [Probiotic] 1 EACH Capsule) PO SCH (09:00)
--- NOTE | 2021-09-13 09:13 | PCM.PN ---
- General Info Date of Service: 09/13/21 Admission Dx/Problem (Free Text): Chronic diastolic heart failure with exacerbation. - Review of Systems Systems Review Comment:: 09/13: No calls overnight. Nadira is seen on rounds this morning. She states "I don't know how all this fluid came on so quickly". She states one day she was up a pound then the next day she was down. She had been getting her Diuril IV only once per week for convenience sake and admits she likely needs to do it twice weekly as was originally ordered and recommended by Dr. Veloz. Weight is stable today, this is really the first day of the increased regimen of diuresis. Her fluid is in her abdomen and legs. This time she has no weeping of her lower extremities and no blister formation. She notes her breathing was a bit more difficult but even that seems a little better today. She states she had significant Char[place] horses in her legs last night and so they are sore today from that. 09/12: Nadira is admitted through the ER with weight gain due to edema. She stated to the ER provider she has been compliant with her diuretic regimen aside from this afternoon as she has had weight gain and was going to be traveling to the ER for evaluation. She is followed by Dr. Urban Veloz, cardiology from [place], [place]. She is in a regimen of Diuril 250 mg IV twice weekly (she sometimes only does this once weekly) via chronic PICC line and also furosemide 100 mg IV daily and an additional 100 mg IV in the afternoon for weight gain as well as spironolactone 50 mg PO daily. Her dry weight from a discharge in [place] was 326 but Nadira identifies her dry weight as 315. She has been as low as 309. She is currently 350 (352 with clothing and shoes on). She has not been in contact with either myself or Dr. Veloz with her weight gain. She has been admitted in the past with aggressive diuresis per Dr. Veloz but she was not this heavy at that time. She reports to the ED provider that "that last 10 pounds came on really fast". I would have preferred she be transferred to [facility], due to the degree of diuresis she will need but they were full and not taking admissions from outlying facilities. - Patient Data Vitals - Most Recent: Last Vital Signs Temp 96 F L 09/13/21 06:29 Pulse 74 09/13/21 06:29 Resp 20 09/13/21 06:29 BP 149/79 H 09/13/21 06:29 Pulse Ox 97 09/13/21 06:29 Weight - Most Recent: 350 lb 14.4 oz I&O - Last 24 Hours: Intake & Output 09/12/21 09/13/21 09/13/21 22:59 06:59 14:59 Intake Total 200 Output Total 600 200 Balance -600 0 Lab Results Last 24 Hours: Laboratory Results - last 24 hr 09/12/21 09/12/21 09/12/21 Range/Units 18:04 18:04 18:05 WBC 5.47 (5.00-10.00) 10^3/uL RBC 3.23 L (3.80-5.50) 10^6/uL Hgb 9.5 L (12.0-16.0) g/dL Hct 30.3 L (37.0-47.0) % MCV 93.8 H (82.0-92.0) fL MCH 29.4 (27.0-31.0) pg MCHC 31.4 L (32.0-36.0) g/dL RDW 16.0 H (11.5-14.5) % Plt Count 141 L (150-400) 10^3/uL MPV 9.8 (7.4-10.4) fL Immature Gran % (Auto) 0.7 (0.0-5.0) % Neut % (Auto) 75.3 H (50.0-70.0) % Lymph % (Auto) 12.4 L (20.0-40.0) % [place] % (Auto) 6.9 (2.0-8.0) % Eos % (Auto) 4.0 H (1.0-3.0) % Baso % (Auto) 0.7 (0.0-1.0) % Neut # (Auto) 4.11 (2.50-7.00) 10^3/uL Lymph # (Auto) 0.68 L (1.00-4.00) 10^3/uL [place] # (Auto) 0.38 (0.10-0.80) 10^3/uL Eos # (Auto) 0.22 (0.10-0.30) 10^3/uL Baso # (Auto) 0.04 (0.00-0.10) 10^3/uL Immature Gran # (Auto) 0.04 (0.00-0.50) 10^3/uL Sodium 130 L (136-145) mmol/L Potassium 3.9 (3.5-5.1) mmol/L Chloride 96 L (98-107) mmol/L Carbon Dioxide 24.8 (21.0-32.0) mmol/L Anion Gap 13.1 (5-15) mmol/L BUN 48 H (7-18) mg/dL Creatinine 1.30 H (0.51-1.17) mg/dL Est Cr Clr Drug Dosing 37.59 mL/min Estimated GFR (MDRD) 42 mL/min Glucose 248 H (70-140) mg/dL POC Glucose (70-140) mg/dL Calcium 8.7 (8.7-10.3) mg/dL Magnesium (1.8-2.4) mg/dL Total Bilirubin 0.9 (0.2-1.0) mg/dL AST 27 (15-37) U/L ALT 18 (14-63) U/L Alkaline Phosphatase 136 H (46-116) U/L Troponin I High Sens 22.000 (0-51.000) pg/mL B-Natriuretic Peptide 284 H (0-100) pg/mL Total Protein 8.5 H (6.4-8.2) g/dL Albumin 3.13 L (3.40-5.00) g/dL Free T4 (0.76-1.46) ng/dL TSH, Ultra Sensitive (0.340-4.820) uIU/mL SARS CoV-2 RNA Rapid DREW (NEGATIVE) 09/12/21 09/12/21 09/13/21 Range/Units 20:05 22:02 07:15 WBC 5.32 (5.00-10.00) 10^3/uL RBC 3.35 L (3.80-5.50) 10^6/uL Hgb 9.6 L (12.0-16.0) g/dL Hct 31.2 L (37.0-47.0) % MCV 93.1 H (82.0-92.0) fL MCH 28.7 (27.0-31.0) pg MCHC 30.8 L (32.0-36.0) g/dL RDW 15.8 H (11.5-14.5) % Plt Count 159 (150-400) 10^3/uL MPV 10.1 (7.4-10.4) fL Immature Gran % (Auto) 0.8 (0.0-5.0) % Neut % (Auto) 69.4 (50.0-70.0) % Lymph % (Auto) 16.2 L (20.0-40.0) % [place] % (Auto) 7.7 (2.0-8.0) % Eos % (Auto) 5.5 H (1.0-3.0) % Baso % (Auto) 0.4 (0.0-1.0) % Neut # (Auto) 3.70 (2.50-7.00) 10^3/uL Lymph # (Auto) 0.86 L (1.00-4.00) 10^3/uL [place] # (Auto) 0.41 (0.10-0.80) 10^3/uL Eos # (Auto) 0.29 (0.10-0.30) 10^3/uL Baso # (Auto) 0.02 (0.00-0.10) 10^3/uL Immature Gran # (Auto) 0.04 (0.00-0.50) 10^3/uL Sodium (136-145) mmol/L Potassium (3.5-5.1) mmol/L Chloride (98-107) mmol/L Carbon Dioxide (21.0-32.0) mmol/L Anion Gap (5-15) mmol/L BUN (7-18) mg/dL Creatinine (0.51-1.17) mg/dL Est Cr Clr Drug Dosing mL/min Estimated GFR (MDRD) mL/min Glucose (70-140) mg/dL POC Glucose 227 H (70-140) mg/dL Calcium (8.7-10.3) mg/dL Magnesium (1.8-2.4) mg/dL Total Bilirubin (0.2-1.0) mg/dL AST (15-37) U/L ALT (14-63) U/L Alkaline Phosphatase (46-116) U/L Troponin I High Sens (0-51.000) pg/mL B-Natriuretic Peptide (0-100) pg/mL Total Protein (6.4-8.2) g/dL Albumin (3.40-5.00) g/dL Free T4 (0.76-1.46) ng/dL TSH, Ultra Sensitive (0.340-4.820) uIU/mL SARS CoV-2 RNA Rapid DREW Negative (NEGATIVE) 09/13/21 Range/Units 07:15 WBC (5.00-10.00) 10^3/uL RBC (3.80-5.50) 10^6/uL Hgb (12.0-16.0) g/dL Hct (37.0-47.0) % MCV (82.0-92.0) fL MCH (27.0-31.0) pg MCHC (32.0-36.0) g/dL RDW (11.5-14.5) % Plt Count (150-400) 10^3/uL MPV (7.4-10.4) fL Immature Gran % (Auto) (0.0-5.0) % Neut % (Auto) (50.0-70.0) % Lymph % (Auto) (20.0-40.0) % [place] % (Auto) (2.0-8.0) % Eos % (Auto) (1.0-3.0) % Baso % (Auto) (0.0-1.0) % Neut # (Auto) (2.50-7.00) 10^3/uL Lymph # (Auto) (1.00-4.00) 10^3/uL [place] # (Auto) (0.10-0.80) 10^3/uL Eos # (Auto) (0.10-0.30) 10^3/uL Baso # (Auto) (0.00-0.10) 10^3/uL Immature Gran # (Auto) (0.00-0.50) 10^3/uL Sodium 132 L (136-145) mmol/L Potassium 4.5 (3.5-5.1) mmol/L Chloride 96 L (98-107) mmol/L Carbon Dioxide 24.8 (21.0-32.0) mmol/L Anion Gap 15.7 H (5-15) mmol/L BUN 49 H (7-18) mg/dL Creatinine 1.34 H (0.51-1.17) mg/dL Est Cr Clr Drug Dosing 36.47 mL/min Estimated GFR (MDRD) 40 mL/min Glucose 182 H (70-140) mg/dL POC Glucose (70-140) mg/dL Calcium 9.1 (8.7-10.3) mg/dL Magnesium 2.3 (1.8-2.4) mg/dL Total Bilirubin 0.9 (0.2-1.0) mg/dL AST 27 (15-37) U/L ALT 18 (14-63) U/L Alkaline Phosphatase 127 H (46-116) U/L Troponin I High Sens (0-51.000) pg/mL B-Natriuretic Peptide (0-100) pg/mL Total Protein 8.7 H (6.4-8.2) g/dL Albumin 3.20 L (3.40-5.00) g/dL Free T4 1.16 (0.76-1.46) ng/dL TSH, Ultra Sensitive 4.308 (0.340-4.820) uIU/mL SARS CoV-2 RNA Rapid DREW (NEGATIVE) Med Orders - Current: Current Medications Acetaminophen (Acetaminophen 500 Mg Tab) 500 - 1,000 mg PO Q6H PRN PRN Reason: Pain Last Admin: 09/12/21 22:10 Dose: 1,000 mg Documented by: Acetaminophen/Codeine Phosphate (Acetaminophen/Codeine 300-30 Mg Tab) 1 tab PO QID PRN PRN Reason: Pain Acetazolamide (Acetazolamide 500 Mg Vial) 250 mg IV DAILY@0800 [facility] Albuterol/Ipratropium (Albuterol/Ipratropium 3.0-0.5 Mg/3 Ml Neb Soln) 1 ml INH Q4H PRN PRN Reason: Dyspnea Allopurinol (Allopurinol 100 Mg Tab) 100 mg PO DAILY [facility] Last Admin: 09/13/21 08:39 Dose: 100 mg Documented by: Chlorothiazide (Chlorothiazide 500 Mg Vial) 250 mg IV Q12H [facility] Last Admin: 09/13/21 08:37 Dose: 250 mg Documented by: Cyclobenzaprine HCl (Cyclobenzaprine 5 Mg Tab) 5 mg PO TID PRN PRN Reason: muscle relaxant Last Admin: 09/12/21 22:11 Dose: 5 mg Documented by: Dextrose/Water (50% Dextrose In Water 50 Ml Syringe) 50 ml IVPUSH ASDIRECTED PRN PRN Reason: Hypoglycemia Diclofenac Sodium (Diclofenac Sodium 1% Gel 100 Gm Tube) 2 gm TOP QID PRN PRN Reason: Pain Docusate Sodium (Docusate Sodium 100 Mg Cap) 200 mg PO BEDTIME PRN PRN Reason: Constipation Ferrous Sulfate (Ferrous Sulfate 325 Mg Tab) 325 mg PO DAILY [facility] Last Admin: 09/13/21 08:39 Dose: 325 mg Documented by: Folic Acid (Folic Acid 1 Mg Tab) 1 mg PO DAILY [facility] Last Admin: 09/13/21 08:39 Dose: 1 mg Documented by: Furosemide (Furosemide 40 Mg/4 Ml Vial) 80 mg IVPUSH 0830,1330,2030 [facility] Last Admin: 09/13/21 08:38 Dose: 80 mg Documented by: Glucagon (Glucagon,Human Recombinant 1 Mg Vial) 1 mg IM ASDIRECTED PRN PRN Reason: Hypoglycemia Insulin Aspart (Insulin Aspart 100 Units/Ml 3 Ml Pen) 30 unit SUBCUT DAILY@1800 [facility] Insulin Aspart (Insulin Aspart 100 Units/Ml 3 Ml Pen) 50 unit SUBCUT 0800,1200 [facility] Last Admin: 09/13/21 08:37 Dose: 50 units Documented by: Insulin Glargine (Insulin Glargine,Hum.Rec.Anlog 100 Unit/Ml 3 Ml Pen) 32 unit SUBCUT BEDTIME [facility] Last Admin: 09/12/21 22:03 Dose: 32 unit Documented by: Levothyroxine Sodium (Levothyroxine 75 Mcg Tab) 75 mcg PO ACBRK [facility] Last Admin: 09/13/21 06:05 Dose: 75 mcg Documented by: Magnesium Oxide (Magnesium Oxide 500 Mg Tab) 500 mg PO DAILY [facility] Last Admin: 09/13/21 08:39 Dose: 500 mg Documented by: Mometasone Furoate/Formoterol Fumar (Formoterol/Mometasone 200-5 Mcg 13 Gm Inhaler) 2 puff INH BID [facility] Last Admin: 09/13/21 08:39 Dose: 2 puff Documented by: Non-Formulary Medication (Tadalafil [Cialis]) 20 mg PO DAILY [facility] Ondansetron HCl (Ondansetron 4 Mg Tab.Dis) 4 mg PO Q6HR PRN PRN Reason: Nausea Pantoprazole Sodium (Pantoprazole 40 Mg Tab.Cr) 40 mg PO ACBREAKFAST [facility] Last Admin: 09/13/21 06:30 Dose: Not Given Documented by: Polyethylene Glycol (Polyethylene Glycol 3350 Powder 17 Gm Packet) 17 gm PO DAILY PRN PRN Reason: Constipation Potassium Chloride (Potassium Chloride 20 Meq Tab.Er) 60 meq PO 1800 [facility] Potassium Chloride (Potassium Chloride 20 Meq Tab.Er) 80 meq PO WITHBREAKFAST [facility] Last Admin: 09/13/21 08:38 Dose: 80 meq Documented by: Spironolactone (Spironolactone 25 Mg Tab) 50 mg PO DAILY [facility] Last Admin: 09/13/21 08:39 Dose: 50 mg Documented by: Triamcinolone Acetonide (Triamcinolone Acetonide 0.1% Oint 15 Gm Tube) 1 gm TOP BID PRN PRN Reason: Rash Discontinued Medications Furosemide (Furosemide 40 Mg/4 Ml Vial) 100 mg IVPUSH NOW ONE Stop: 09/12/21 20:12 Last Admin: 09/12/21 20:18 Dose: 100 mg Documented by: Glucagon (Glucagon,Human Recombinant 1 Mg Vial) 1 mg IM ASDIRECTED PRN PRN Reason: Hypoglycemia Acetazolamide 250 mg/ Sodium (Chloride) 50 mls @ 100 mls/hr IV DAILY@0800 [facility] Last Admin: 09/13/21 08:37 Dose: 100 mls/hr Documented by: Sodium Chloride (Normal Saline) Confirm Administered Dose 50 mls @ as directed .ROUTE .STK-MED ONE Stop: 09/13/21 08:52 Mometasone Furoate/Formoterol Fumar (Formoterol/Mometasone 200-5 Mcg 13 Gm Inhaler) 2 puff INH NOW ONE Stop: 09/12/21 22:31 Last Admin: 09/12/21 22:41 Dose: 2 puff Documented by: Potassium Chloride (Potassium Chloride 10 Meq Tab.Er) 80 meq PO WITHBREAKFAST [facility] Potassium Chloride (Potassium Chloride 10 Meq Tab.Er) 60 meq PO NOW ONE Stop: 09/12/21 21:31 Last Admin: 09/12/21 22:06 Dose: 60 meq Documented by: - Exam Quality Assessment: Supplemental Oxygen General: Alert, Oriented, Cooperative, No Acute Distress Lungs: Clear to Auscultation, Normal Respiratory Effort Cardiovascular: Regular Rate, Regular Rhythm, No Murmurs Extremities: Pedal Edema - Patient Data Lab Results Last 24 hrs: Laboratory Results - last 24 hr 09/12/21 09/12/21 09/12/21 Range/Units 18:04 18:04 18:05 WBC 5.47 (5.00-10.00) 10^3/uL RBC 3.23 L (3.80-5.50) 10^6/uL Hgb 9.5 L (12.0-16.0) g/dL Hct 30.3 L (37.0-47.0) % MCV 93.8 H (82.0-92.0) fL MCH 29.4 (27.0-31.0) pg MCHC 31.4 L (32.0-36.0) g/dL RDW 16.0 H (11.5-14.5) % Plt Count 141 L (150-400) 10^3/uL MPV 9.8 (7.4-10.4) fL Immature Gran % (Auto) 0.7 (0.0-5.0) % Neut % (Auto) 75.3 H (50.0-70.0) % Lymph % (Auto) 12.4 L (20.0-40.0) % [place] % (Auto) 6.9 (2.0-8.0) % Eos % (Auto) 4.0 H (1.0-3.0) % Baso % (Auto) 0.7 (0.0-1.0) % Neut # (Auto) 4.11 (2.50-7.00) 10^3/uL Lymph # (Auto) 0.68 L (1.00-4.00) 10^3/uL [place] # (Auto) 0.38 (0.10-0.80) 10^3/uL Eos # (Auto) 0.22 (0.10-0.30) 10^3/uL Baso # (Auto) 0.04 (0.00-0.10) 10^3/uL Immature Gran # (Auto) 0.04 (0.00-0.50) 10^3/uL Sodium 130 L (136-145) mmol/L Potassium 3.9 (3.5-5.1) mmol/L Chloride 96 L (98-107) mmol/L Carbon Dioxide 24.8 (21.0-32.0) mmol/L Anion Gap 13.1 (5-15) mmol/L BUN 48 H (7-18) mg/dL Creatinine 1.30 H (0.51-1.17) mg/dL Est Cr Clr Drug Dosing 37.59 mL/min Estimated GFR (MDRD) 42 mL/min Glucose 248 H (70-140) mg/dL POC Glucose (70-140) mg/dL Calcium 8.7 (8.7-10.3) mg/dL Magnesium (1.8-2.4) mg/dL Total Bilirubin 0.9 (0.2-1.0) mg/dL AST 27 (15-37) U/L ALT 18 (14-63) U/L Alkaline Phosphatase 136 H (46-116) U/L Troponin I High Sens 22.000 (0-51.000) pg/mL B-Natriuretic Peptide 284 H (0-100) pg/mL Total Protein 8.5 H (6.4-8.2) g/dL Albumin 3.13 L (3.40-5.00) g/dL Free T4 (0.76-1.46) ng/dL TSH, Ultra Sensitive (0.340-4.820) uIU/mL SARS CoV-2 RNA Rapid DREW (NEGATIVE) 09/12/21 09/12/21 09/13/21 Range/Units 20:05 22:02 07:15 WBC 5.32 (5.00-10.00) 10^3/uL RBC 3.35 L (3.80-5.50) 10^6/uL Hgb 9.6 L (12.0-16.0) g/dL Hct 31.2 L (37.0-47.0) % MCV 93.1 H (82.0-92.0) fL MCH 28.7 (27.0-31.0) pg MCHC 30.8 L (32.0-36.0) g/dL RDW 15.8 H (11.5-14.5) % Plt Count 159 (150-400) 10^3/uL MPV 10.1 (7.4-10.4) fL Immature Gran % (Auto) 0.8 (0.0-5.0) % Neut % (Auto) 69.4 (50.0-70.0) % Lymph % (Auto) 16.2 L (20.0-40.0) % [place] % (Auto) 7.7 (2.0-8.0) % Eos % (Auto) 5.5 H (1.0-3.0) % Baso % (Auto) 0.4 (0.0-1.0) % Neut # (Auto) 3.70 (2.50-7.00) 10^3/uL Lymph # (Auto) 0.86 L (1.00-4.00) 10^3/uL [place] # (Auto) 0.41 (0.10-0.80) 10^3/uL Eos # (Auto) 0.29 (0.10-0.30) 10^3/uL Baso # (Auto) 0.02 (0.00-0.10) 10^3/uL Immature Gran # (Auto) 0.04 (0.00-0.50) 10^3/uL Sodium (136-145) mmol/L Potassium (3.5-5.1) mmol/L Chloride (98-107) mmol/L Carbon Dioxide (21.0-32.0) mmol/L Anion Gap (5-15) mmol/L BUN (7-18) mg/dL Creatinine (0.51-1.17) mg/dL Est Cr Clr Drug Dosing mL/min Estimated GFR (MDRD) mL/min Glucose (70-140) mg/dL POC Glucose 227 H (70-140) mg/dL Calcium (8.7-10.3) mg/dL Magnesium (1.8-2.4) mg/dL Total Bilirubin (0.2-1.0) mg/dL AST (15-37) U/L ALT (14-63) U/L Alkaline Phosphatase (46-116) U/L Troponin I High Sens (0-51.000) pg/mL B-Natriuretic Peptide (0-100) pg/mL Total Protein (6.4-8.2) g/dL Albumin (3.40-5.00) g/dL Free T4 (0.76-1.46) ng/dL TSH, Ultra Sensitive (0.340-4.820) uIU/mL SARS CoV-2 RNA Rapid DREW Negative (NEGATIVE) 09/13/21 Range/Units 07:15 WBC (5.00-10.00) 10^3/uL RBC (3.80-5.50) 10^6/uL Hgb (12.0-16.0) g/dL Hct (37.0-47.0) % MCV (82.0-92.0) fL MCH (27.0-31.0) pg MCHC (32.0-36.0) g/dL RDW (11.5-14.5) % Plt Count (150-400) 10^3/uL MPV (7.4-10.4) fL Immature Gran % (Auto) (0.0-5.0) % Neut % (Auto) (50.0-70.0) % Lymph % (Auto) (20.0-40.0) % [place] % (Auto) (2.0-8.0) % Eos % (Auto) (1.0-3.0) % Baso % (Auto) (0.0-1.0) % Neut # (Auto) (2.50-7.00) 10^3/uL Lymph # (Auto) (1.00-4.00) 10^3/uL [place] # (Auto) (0.10-0.80) 10^3/uL Eos # (Auto) (0.10-0.30) 10^3/uL Baso # (Auto) (0.00-0.10) 10^3/uL Immature Gran # (Auto) (0.00-0.50) 10^3/uL Sodium 132 L (136-145) mmol/L Potassium 4.5 (3.5-5.1) mmol/L Chloride 96 L (98-107) mmol/L Carbon Dioxide 24.8 (21.0-32.0) mmol/L Anion Gap 15.7 H (5-15) mmol/L BUN 49 H (7-18) mg/dL Creatinine 1.34 H (0.51-1.17) mg/dL Est Cr Clr Drug Dosing 36.47 mL/min Estimated GFR (MDRD) 40 mL/min Glucose 182 H (70-140) mg/dL POC Glucose (70-140) mg/dL Calcium 9.1 (8.7-10.3) mg/dL Magnesium 2.3 (1.8-2.4) mg/dL Total Bilirubin 0.9 (0.2-1.0) mg/dL AST 27 (15-37) U/L ALT 18 (14-63) U/L Alkaline Phosphatase 127 H (46-116) U/L Troponin I High Sens (0-51.000) pg/mL B-Natriuretic Peptide (0-100) pg/mL Total Protein 8.7 H (6.4-8.2) g/dL Albumin 3.20 L (3.40-5.00) g/dL Free T4 1.16 (0.76-1.46) ng/dL TSH, Ultra Sensitive 4.308 (0.340-4.820) uIU/mL SARS CoV-2 RNA Rapid DREW (NEGATIVE) Result Diagrams: 09/13/21 07:15 09/13/21 07:15 Sepsis Event Note - Evaluation Sepsis Screening Result: No Definite Risk - Focused Exam Vital Signs: Vital Signs Temp Pulse Resp BP Pulse Ox 09/13/21 06:29 96 F L 74 20 149/79 H 97 09/13/21 03:00 96.7 F L 72 16 135/61 93 L 09/12/21 23:00 97.1 F 70 16 128/60 97 - Problem List Review Problem List Initiated/Reviewed/Updated: Yes - My Orders Last 24 Hours: My Active Orders 09/12/21 20:45 Blood Glucose Check, Bedside [RC] QIDACANDBED Oxygen Therapy [RC] PRN Up With Assistance [RC] ASDIRECTED VTE/DVT Education [RC] DAILY Vital Signs [RC] 03,07,11,15,19,23 09/12/21 20:48 Intake and Output [RC] 1400,2200,0600 Weight Daily [Height and Weight] [RC] 07 Acetaminophen [Tylenol Extra Strength] 500 - 1,000 mg PO Q6H PRN Acetaminophen/Codeine [Tylenol with Codeine No.3 300MG/30MG] 1 tab PO QID PRN Albuterol/Ipratropium [DuoNeb 3.0-0.5 MG/3 ML] 1 ml INH Q4H PRN Cyclobenzaprine [Flexeril] 5 mg PO TID PRN Dextrose 50% in Water 50 ml IVPUSH ASDIRECTED PRN Diclofenac Sodium [Voltaren 1% Gel] 2 gm TOP QID PRN Docusate Sodium [Colace] 200 mg PO BEDTIME PRN Glucagon,Human Recombinant [GlucaGen] 1 mg IM ASDIRECTED PRN Ondansetron [Zofran ODT] 4 mg PO Q6HR PRN polyethylene glycoL 3350 [MiraLAX] 17 gm PO DAILY PRN 09/12/21 20:52 RT Aerosol Therapy [RC] ASDIRECTED 09/12/21 21:00 Insulin Glargine,Hum.Rec.Anlog [Semglee Pen] 32 unit SUBCUT BEDTIME 09/12/21 21:31 Triamcinolone Acetonide [Triamcinolone Acetonide 0.1% Oint] 1 gm TOP BID PRN 09/13/21 06:10 Communication Order [RC] DAILY 09/13/21 06:15 Communication Order [RC] DAILY 09/13/21 07:00 Levothyroxine 75 mcg PO ACBRK 09/13/21 07:30 Pantoprazole [ProTONIX] 40 mg PO ACBREAKFAST 09/13/21 Breakfast 2 Gram Sodium Diet [DIET] Fluid Restriction [DIET] Chlorothiazide 250 mg IV Q12H Insulin Aspart [NovoLOG] 50 unit SUBCUT 0800,1200 09/13/21 08:30 Furosemide [Lasix] 80 mg IVPUSH 0830,1330,2030 Potassium Chloride [Klor-Con M20] 80 meq PO WITHBREAKFAST 09/13/21 09:00 Ferrous Sulfate 325 mg PO DAILY Folic Acid 1 mg PO DAILY Magnesium Oxide 500 mg PO DAILY Mometasone/Formoterol [Dulera 200-5 MCG] 2 puff INH BID Spironolactone [Aldactone] 50 mg PO DAILY Tadalafil [Cialis] 20 mg PO DAILY allopurinoL [Zyloprim] 100 mg PO DAILY 09/13/21 14:00 Nystatin [Nystop] 1 gm TOP TID 09/13/21 18:00 Insulin Aspart [NovoLOG] 30 unit SUBCUT DAILY@1800 Potassium Chloride [Klor-Con M20] 60 meq PO 1800 09/14/21 05:11 CBC WITH AUTO DIFF [HEME] AM COMPREHENSIVE METABOLIC PN,CMP [CHEM] AM 09/14/21 08:00 acetaZOLAMIDE [Diamox] 250 mg IV DAILY@0800 09/15/21 05:11 CBC WITH AUTO DIFF [HEME] AM COMPREHENSIVE METABOLIC PN,CMP [CHEM] AM 09/16/21 05:11 CBC WITH AUTO DIFF [HEME] AM COMPREHENSIVE METABOLIC PN,CMP [CHEM] AM 09/17/21 05:11 CBC WITH AUTO DIFF [HEME] AM COMPREHENSIVE METABOLIC PN,CMP [CHEM] AM - Assessment Assessment:: Admission Diagnosis: Chronic diastolic heart failure with exacerbation: - Furosemide 100 mg IV 09/12 in ER - Diuril 250 mg IV BID starting 09/13 - Furosemide 80 mg IV TID, giving AM and PM dose 30 minutes after diuril starting 09/13 - Diamox 250 mg IV daily starting 09/13 - Spironolactone 50 mg PO daily, can increase to 100 mg PO daily if indicated - Metolazone 2.5 mg PO // if indicated - 2 gram sodium diet - Fluid restriction 1500 mL daily - I/O - Daily weights - Dr. Veloz office: [phone] Renee intertrigo - Nystatin powder TID to affected areas until resolved (09/13) Secondary Diagnoses: Pulmonary HTN - Tadalafil 20 mg PO daily DM - Insulin glargine 32 units subcut qhs - Novolog 50-50-30 - BG TIDAC and HS CKD 3 - Daily CMP ANDERS - Ferrous Sulfate 325 mg PO daily - Daily CBC Hypothyroidism - Levothyroxine 75 mcg PO daily Hypokalemia - Potassium Chloride 80 mEq q AM and 60 mEq q PM Hypomag - Mag Oxide 400 mg PO daily COPD - Advair 250/50 one puff PO BID Gout - Allopurinol 100 mg PO daily Acid Reflux - Omeprazole 40 mg PO daily CODE STATUS: DNR with trial of intubation
[2021-09-13] MEDS ORDERED: Nystatin Topical Powder 15 GM Bottle ONE (10:33)
[2021-09-13] MEDS: Insulin Lispro 100 Unit/ML 3 ML KwikPen SUBCUT SCH ×2 (11:59→17:55)
[2021-09-13] MEDS: [UNRECOGNIZED DRUG - OTHER] PO SCH (12:00)
[2021-09-13] MEDS: TADALAFIL 20 MG PO SCH (12:00)
[2021-09-13] MEDS: Nystatin Topical Powder 15 GM Bottle TOP SCH ×2 (13:19→20:26)
[2021-09-13] MEDS: Furosemide 40 MG/4 ML VIAL IVPUSH SCH ×2 (13:19→20:25)
[2021-09-13] MEDS: Cyclobenzaprine 5 MG Tab PO PRN ×2 (13:20→22:39)
[2021-09-13] MEDS: Acetaminophen/Codeine 300-30 MG Tab PO PRN ×2 (15:17→22:39)
[2021-09-13] MEDS: Insulin Glargine,Hum.Rec.Anlog 100 UNIT/ML 3 ML Pen SUBCUT SCH (20:26)
[2021-09-13] MEDS: Acetaminophen 500 MG Tab PO PRN (22:38)
[2021-09-14] MEDS: Levothyroxine 75 MCG Tab PO SCH (06:00)
[2021-09-14] MEDS: Pantoprazole 40 MG Tab.CR PO SCH ×2 (06:01→06:30)
[2021-09-14] MEDS: Acetaminophen 500 MG Tab PO PRN (06:04)
[2021-09-14] MEDS: Cyclobenzaprine 5 MG Tab PO PRN ×2 (06:05→17:00)
[2021-09-14] MEDS: acetaZOLAMIDE 500 MG Vial IV SCH (08:00)
[2021-09-14] MEDS: Potassium Chloride 20 MEQ Tab.ER PO SCH ×2 (08:38→18:33)
[2021-09-14] MEDS: Furosemide 40 MG/4 ML VIAL IVPUSH SCH ×3 (08:39→20:28)
[2021-09-14] MEDS: Magnesium Oxide 500 MG Tab PO SCH (08:57)
[2021-09-14] MEDS: Spironolactone 25 MG Tab PO SCH (08:57)
[2021-09-14] MEDS: Ferrous Sulfate 325 MG Tab PO SCH (08:58)
[2021-09-14] MEDS: Allopurinol 100 MG Tab PO SCH (08:58)
[2021-09-14] MEDS: Folic Acid 1 MG Tab PO SCH (08:58)
[2021-09-14] MEDS: Insulin Lispro 100 Unit/ML 3 ML KwikPen SUBCUT SCH ×3 (09:00→18:26)
[2021-09-14] MEDS: [UNRECOGNIZED DRUG - OTHER] PO SCH (09:06)
[2021-09-14] MEDS: TADALAFIL 20 MG PO SCH (09:06)
[2021-09-14] MEDS: Formoterol/Mometasone 200-5 MCG 13 GM Inhaler INH SCH ×2 (09:08→20:28)
[2021-09-14] MEDS: Nystatin Topical Powder 15 GM Bottle TOP SCH ×3 (09:09→20:28)
--- NOTE | 2021-09-14 09:59 | PCM.PN ---
- General Info Date of Service: 09/14/21 Admission Dx/Problem (Free Text): Chronic diastolic heart failure with exacerbation. - Review of Systems Systems Review Comment:: 09/14: No calls overnight. Net out 1700 mL's, weight only down 1 pounds. She overall feels a bit better. Renal indices rising. 09/13: No calls overnight. Nadira is seen on rounds this morning. She states "I don't know how all this fluid came on so quickly". She states one day she was up a pound then the next day she was down. She had been getting her Diuril IV only once per week for convenience sake and admits she likely needs to do it twice weekly as was originally ordered and recommended by Dr. Veloz. Weight is stable today, this is really the first day of the increased regimen of diuresis. Her fluid is in her abdomen and legs. This time she has no weeping of her lower extremities and no blister formation. She notes her breathing was a bit more difficult but even that seems a little better today. She states she had significant Charley horses in her legs last night and so they are sore today from that. 09/12: Nadira is admitted through the ER with weight gain due to edema. She stated to the ER provider she has been compliant with her diuretic regimen aside from this afternoon as she has had weight gain and was going to be traveling to the ER for evaluation. She is followed by Dr. Urban Veloz, cardiology from [place], [place]. She is in a regimen of Diuril 250 mg IV twice weekly (she sometimes only does this once weekly) via chronic PICC line and also furosemide 100 mg IV daily and an additional 100 mg IV in the afternoon for weight gain as well as spironolactone 50 mg PO daily. Her dry weight from a discharge in [place] was 326 but Nadira identifies her dry weight as 315. She has been as low as 309. She is currently 350 (352 with clothing and shoes on). She has not been in contact with either myself or Dr. Veloz with her weight gain. She has been admitted in the past with aggressive diuresis per Dr. Veloz but she was not this heavy at that time. She reports to the ED provider that "that last 10 pounds came on really fast". I [facility], due to the degree of diuresis she will need but they were full and not taking admissions from outlying facilities. - Patient Data Vitals - Most Recent: Last Vital Signs Temp 96.4 F L 09/14/21 06:20 Pulse 76 09/14/21 06:20 Resp 16 09/14/21 06:20 BP 133/68 09/14/21 06:20 Pulse Ox 99 09/14/21 07:29 Weight - Most Recent: 349 lb 1.6 oz I&O - Last 24 Hours: Intake & Output 09/13/21 09/14/21 09/14/21 22:59 06:59 14:59 Intake Total 1000 100 Output Total 1250 300 Balance -250 -200 Lab Results Last 24 Hours: Laboratory Results - last 24 hr 09/14/21 09/14/21 09/14/21 Range/Units 07:10 07:10 07:16 WBC 4.71 L (5.00-10.00) 10^3/uL RBC 3.16 L (3.80-5.50) 10^6/uL Hgb 9.1 L (12.0-16.0) g/dL Hct 29.7 L (37.0-47.0) % MCV 94.0 H (82.0-92.0) fL MCH 28.8 (27.0-31.0) pg MCHC 30.6 L (32.0-36.0) g/dL RDW 16.0 H (11.5-14.5) % Plt Count 148 L (150-400) 10^3/uL MPV 10.0 (7.4-10.4) fL Immature Gran % (Auto) 0.6 (0.0-5.0) % Neut % (Auto) 69.2 (50.0-70.0) % Lymph % (Auto) 16.8 L (20.0-40.0) % Lake % (Auto) 8.1 H (2.0-8.0) % Eos % (Auto) 5.1 H (1.0-3.0) % Baso % (Auto) 0.2 (0.0-1.0) % Neut # (Auto) 3.26 (2.50-7.00) 10^3/uL Lymph # (Auto) 0.79 L (1.00-4.00) 10^3/uL Lake # (Auto) 0.38 (0.10-0.80) 10^3/uL Eos # (Auto) 0.24 (0.10-0.30) 10^3/uL Baso # (Auto) 0.01 (0.00-0.10) 10^3/uL Immature Gran # (Auto) 0.03 (0.00-0.50) 10^3/uL Sodium 136 (136-145) mmol/L Potassium 4.4 (3.5-5.1) mmol/L Chloride 100 (98-107) mmol/L Carbon Dioxide 26.4 (21.0-32.0) mmol/L Anion Gap 14.0 (5-15) mmol/L BUN 50 H (7-18) mg/dL Creatinine 1.51 H (0.51-1.17) mg/dL Est Cr Clr Drug Dosing 32.36 mL/min Estimated GFR (MDRD) 35 mL/min Glucose 100 (70-140) mg/dL POC Glucose 90 (70-140) mg/dL Calcium 8.6 L (8.7-10.3) mg/dL Total Bilirubin 0.8 (0.2-1.0) mg/dL AST 24 (15-37) U/L ALT 17 (14-63) U/L Alkaline Phosphatase 122 H (46-116) U/L Total Protein 8.1 (6.4-8.2) g/dL Albumin 3.12 L (3.40-5.00) g/dL Med Orders - Current: Current Medications Acetaminophen (Acetaminophen 500 Mg Tab) 500 - 1,000 mg PO Q6H PRN PRN Reason: Pain Last Admin: 09/14/21 06:04 Dose: 1,000 mg Documented by: Acetaminophen/Codeine Phosphate (Acetaminophen/Codeine 300-30 Mg Tab) 1 tab PO QID PRN PRN Reason: Pain Last Admin: 09/13/21 22:39 Dose: 1 tab Documented by: Acetazolamide (Acetazolamide 500 Mg Vial) 250 mg IV DAILY@0800 [facility] Last Admin: 09/14/21 08:00 Dose: 250 mg Documented by: Albuterol/Ipratropium (Albuterol/Ipratropium 3.0-0.5 Mg/3 Ml Neb Soln) 1 ml INH Q4H PRN PRN Reason: Dyspnea Allopurinol (Allopurinol 100 Mg Tab) 100 mg PO DAILY [facility] Last Admin: 09/14/21 08:58 Dose: 100 mg Documented by: Chlorothiazide (Chlorothiazide 500 Mg Vial) 250 mg IV Q12H [facility] Last Admin: 09/14/21 08:00 Dose: 250 mg Documented by: Cyclobenzaprine HCl (Cyclobenzaprine 5 Mg Tab) 5 mg PO TID PRN PRN Reason: muscle relaxant Last Admin: 09/14/21 06:05 Dose: 5 mg Documented by: Dextrose/Water (50% Dextrose In Water 50 Ml Syringe) 50 ml IVPUSH ASDIRECTED PRN PRN Reason: Hypoglycemia Diclofenac Sodium (Diclofenac Sodium 1% Gel 100 Gm Tube) 2 gm TOP QID PRN PRN Reason: Pain Docusate Sodium (Docusate Sodium 100 Mg Cap) 200 mg PO BEDTIME PRN PRN Reason: Constipation Last Admin: 09/13/21 22:38 Dose: 200 mg Documented by: Ferrous Sulfate (Ferrous Sulfate 325 Mg Tab) 325 mg PO DAILY [facility] Last Admin: 09/14/21 08:58 Dose: 325 mg Documented by: Folic Acid (Folic Acid 1 Mg Tab) 1 mg PO DAILY [facility] Last Admin: 09/14/21 08:58 Dose: 1 mg Documented by: Furosemide (Furosemide 40 Mg/4 Ml Vial) 80 mg IVPUSH TID@0830,1330,2030 [facility] Last Admin: 09/14/21 08:39 Dose: 80 mg Documented by: Glucagon (Glucagon,Human Recombinant 1 Mg Vial) 1 mg IM ASDIRECTED PRN PRN Reason: Hypoglycemia Insulin Glargine (Insulin Glargine,Hum.Rec.Anlog 100 Unit/Ml 3 Ml Pen) 32 unit SUBCUT BEDTIME [facility] Last Admin: 09/13/21 20:26 Dose: 32 unit Documented by: Insulin Human Lispro (Insulin Lispro 100 Unit/Ml 3 Ml Kwikpen) 30 unit SUBCUT DAILY@1800 [facility] Last Admin: 09/13/21 17:55 Dose: Not Given Documented by: Insulin Human Lispro (Insulin Lispro 100 Unit/Ml 3 Ml Kwikpen) 50 unit SUBCUT 0800,1200 [facility] Last Admin: 09/14/21 09:00 Dose: Not Given Documented by: Levothyroxine Sodium (Levothyroxine 75 Mcg Tab) 75 mcg PO ACBRK [facility] Last Admin: 09/14/21 06:00 Dose: 75 mcg Documented by: Magnesium Oxide (Magnesium Oxide 500 Mg Tab) 500 mg PO DAILY [facility] Last Admin: 09/14/21 08:57 Dose: 500 mg Documented by: Mometasone Furoate/Formoterol Fumar (Formoterol/Mometasone 200-5 Mcg 13 Gm Inh aler) 2 puff INH BID [facility] Last Admin: 09/14/21 09:08 Dose: 2 puff Documented by: Tadalafil [Cialis] 20 Mg Tablet - Nonformulary 20 mg PO DAILY [facility] Last Admin: 09/14/21 09:06 Dose: 20 mg Documented by: Nystatin (Nystatin Topical Powder 15 Gm Bottle) 1 gm TOP TID [facility] Last Admin: 09/14/21 09:09 Dose: 1 applic Documented by: Ondansetron HCl (Ondansetron 4 Mg Tab.Dis) 4 mg PO Q6HR PRN PRN Reason: Nausea Pantoprazole Sodium (Pantoprazole 40 Mg Tab.Cr) 40 mg PO ACBREAKFAST [facility] Last Admin: 09/14/21 06:30 Dose: Not Given Documented by: Polyethylene Glycol (Polyethylene Glycol 3350 Powder 17 Gm Packet) 17 gm PO DAILY PRN PRN Reason: Constipation Potassium Chloride (Potassium Chloride 20 Meq Tab.Er) 60 meq PO 1800 [facility] Last Admin: 09/13/21 17:55 Dose: 60 meq Documented by: Potassium Chloride (Potassium Chloride 20 Meq Tab.Er) 80 meq PO WITHBREAKFAST [facility] Last Admin: 09/14/21 08:38 Dose: 80 meq Documented by: Spironolactone (Spironolactone 25 Mg Tab) 50 mg PO DAILY [facility] Last Admin: 09/14/21 08:57 Dose: 50 mg Documented by: Triamcinolone Acetonide (Triamcinolone Acetonide 0.1% Oint 15 Gm Tube) 1 gm TOP BID PRN PRN Reason: Rash Discontinued Medications Furosemide (Furosemide 40 Mg/4 Ml Vial) 100 mg IVPUSH NOW ONE Stop: 09/12/21 20:12 Last Admin: 09/12/21 20:18 Dose: 100 mg Documented by: Furosemide (Furosemide 40 Mg/4 Ml Vial) 80 mg IVPUSH 0830,1330,2030 [facility] Last Admin: 09/13/21 08:38 Dose: 80 mg Documented by: Glucagon (Glucagon,Human Recombinant 1 Mg Vial) 1 mg IM ASDIRECTED PRN PRN Reason: Hypoglycemia Acetazolamide 250 mg/ Sodium (Chloride) 50 mls @ 100 mls/hr IV DAILY@0800 [facility] Last Admin: 09/13/21 08:37 Dose: 100 mls/hr Documented by: Sodium Chloride (Normal Saline) Confirm Administered Dose 50 mls @ as directed .ROUTE .STK-MED ONE Stop: 09/13/21 08:52 Last Admin: 09/13/21 10:42 Dose: 125 mls/hr Documented by: Insulin Aspart (Insulin Aspart 100 Units/Ml 3 Ml Pen) 50 unit SUBCUT 0800,1200 [facility] Last Admin: 09/13/21 08:37 Dose: 50 units Documented by: Mometasone Furoate/Formoterol Fumar (Formoterol/Mometasone 200-5 Mcg 13 Gm Inhaler) 2 puff INH NOW ONE Stop: 09/12/21 22:31 Last Admin: 09/12/21 22:41 Dose: 2 puff Documented by: Nystatin (Nystatin Topical Powder 15 Gm Bottle) Confirm Administered Dose 15 gm .ROUTE .STK-MED ONE Stop: 09/13/21 10:34 Last Admin: 09/13/21 10:43 Dose: Not Given Documented by: Potassium Chloride (Potassium Chloride 10 Meq Tab.Er) 80 meq PO WITHBREAKFAST [facility] Last Admin: 09/13/21 12:01 Dose: Not Given Documented by: Potassium Chloride (Potassium Chloride 10 Meq Tab.Er) 60 meq PO NOW ONE Stop: 09/12/21 21:31 Last Admin: 09/12/21 22:06 Dose: 60 meq Documented by: - Exam Quality Assessment: Supplemental Oxygen General: Alert, Oriented, Cooperative, No Acute Distress Lungs: Normal Respiratory Effort, Crackles (Left lung base) Cardiovascular: Regular Rate, Regular Rhythm, No Murmurs Extremities: Pedal Edema - Patient Data Lab Results Last 24 hrs: Laboratory Results - last 24 hr 09/14/21 09/14/21 09/14/21 Range/Units 07:10 07:10 07:16 WBC 4.71 L (5.00-10.00) 10^3/uL RBC 3.16 L (3.80-5.50) 10^6/uL Hgb 9.1 L (12.0-16.0) g/dL Hct 29.7 L (37.0-47.0) % MCV 94.0 H (82.0-92.0) fL MCH 28.8 (27.0-31.0) pg MCHC 30.6 L (32.0-36.0) g/dL RDW 16.0 H (11.5-14.5) % Plt Count 148 L (150-400) 10^3/uL MPV 10.0 (7.4-10.4) fL Immature Gran % (Auto) 0.6 (0.0-5.0) % Neut % (Auto) 69.2 (50.0-70.0) % Lymph % (Auto) 16.8 L (20.0-40.0) % Lake % (Auto) 8.1 H (2.0-8.0) % Eos % (Auto) 5.1 H (1.0-3.0) % Baso % (Auto) 0.2 (0.0-1.0) % Neut # (Auto) 3.26 (2.50-7.00) 10^3/uL Lymph # (Auto) 0.79 L (1.00-4.00) 10^3/uL Lake # (Auto) 0.38 (0.10-0.80) 10^3/uL Eos # (Auto) 0.24 (0.10-0.30) 10^3/uL Baso # (Auto) 0.01 (0.00-0.10) 10^3/uL Immature Gran # (Auto) 0.03 (0.00-0.50) 10^3/uL Sodium 136 (136-145) mmol/L Potassium 4.4 (3.5-5.1) mmol/L Chloride 100 (98-107) mmol/L Carbon Dioxide 26.4 (21.0-32.0) mmol/L Anion Gap 14.0 (5-15) mmol/L BUN 50 H (7-18) mg/dL Creatinine 1.51 H (0.51-1.17) mg/dL Est Cr Clr Drug Dosing 32.36 mL/min Estimated GFR (MDRD) 35 mL/min Glucose 100 (70-140) mg/dL POC Glucose 90 (70-140) mg/dL Calcium 8.6 L (8.7-10.3) mg/dL Total Bilirubin 0.8 (0.2-1.0) mg/dL AST 24 (15-37) U/L ALT 17 (14-63) U/L Alkaline Phosphatase 122 H (46-116) U/L Total Protein 8.1 (6.4-8.2) g/dL Albumin 3.12 L (3.40-5.00) g/dL Result Diagrams: 09/14/21 07:10 09/14/21 07:10 Sepsis Event Note - Evaluation Sepsis Screening Result: No Definite Risk - Focused Exam Vital Signs: Vital Signs Temp Pulse Resp BP Pulse Ox Pulse Ox 09/14/21 07:29 99 09/14/21 06:20 96.4 F L 76 16 133/68 96 09/14/21 03:00 96.8 F L 78 20 151/53 H 91 L 09/13/21 23:00 96.9 F 88 20 145/72 H 96 - Problem List Review Problem List Initiated/Reviewed/Updated: Yes - My Orders Last 24 Hours: My Active Orders 09/13/21 09:00 Ferrous Sulfate 325 mg PO DAILY Folic Acid 1 mg PO DAILY Magnesium Oxide 500 mg PO DAILY Mometasone/Formoterol [Dulera 200-5 MCG] 2 puff INH BID Spironolactone [Aldactone] 50 mg PO DAILY Tadalafil [Cialis] 20 mg PO DAILY allopurinoL [Zyloprim] 100 mg PO DAILY 09/13/21 12:00 Insulin Lispro [HumaLOG] 50 unit SUBCUT 0800,1200 09/13/21 13:30 Furosemide [Lasix] 80 mg IVPUSH TID@0830,1330,2030 09/13/21 14:00 Nystatin [Nystop] 1 gm TOP TID 09/13/21 18:00 Insulin Lispro [HumaLOG] 30 unit SUBCUT DAILY@1800 Potassium Chloride [Klor-Con M20] 60 meq PO 1800 09/14/21 08:00 acetaZOLAMIDE [Diamox] 250 mg IV DAILY@0800 09/15/21 05:11 CBC WITH AUTO DIFF [HEME] AM COMPREHENSIVE METABOLIC PN,CMP [CHEM] AM 09/16/21 05:11 CBC WITH AUTO DIFF [HEME] AM COMPREHENSIVE METABOLIC PN,CMP [CHEM] AM 09/17/21 05:11 CBC WITH AUTO DIFF [HEME] AM COMPREHENSIVE METABOLIC PN,CMP [CHEM] AM - Assessment Assessment:: Admission Diagnosis: Chronic diastolic heart failure with exacerbation: - Furosemide 100 mg IV 09/12 in ER - Diuril 250 mg IV BID starting 09/13 - Furosemide 80 mg IV TID, giving AM and PM dose 30 minutes after diuril starting 09/13 - Diamox 250 mg IV daily starting 09/13 - Spironolactone 50 mg PO daily, can increase to 100 mg PO daily if indicated - Metolazone 2.5 mg PO // if indicated - 2 gram sodium diet - Fluid restriction 1500 mL daily - I/O - Daily weights - Dr. Veloz office: [phone] Renee intertrigo - Nystatin powder TID to affected areas until resolved (09/13) Secondary Diagnoses: Pulmonary HTN - Tadalafil 20 mg PO daily DM - Insulin glargine 32 units subcut qhs - Novolog 50-50-30 - BG TIDAC and HS CKD 3 - Daily CMP ANDERS - Ferrous Sulfate 325 mg PO daily - Daily CBC Hypothyroidism - Levothyroxine 75 mcg PO daily Hypokalemia - Potassium Chloride 80 mEq q AM and 60 mEq q PM Hypomag - Mag Oxide 400 mg PO daily COPD - Advair 250/50 one puff PO BID Gout - Allopurinol 100 mg PO daily Acid Reflux - Omeprazole 40 mg PO daily CODE STATUS: DNR with trial of intubation
[2021-09-14] MEDS: Acetaminophen/Codeine 300-30 MG Tab PO PRN ×2 (15:29→21:09)
[2021-09-14] MEDS: Insulin Glargine,Hum.Rec.Anlog 100 UNIT/ML 3 ML Pen SUBCUT SCH (20:03)
[2021-09-15] MEDS: Cyclobenzaprine 5 MG Tab PO PRN (06:02)
[2021-09-15] MEDS: Acetaminophen 500 MG Tab PO PRN (06:02)
[2021-09-15] MEDS: Levothyroxine 75 MCG Tab PO SCH (06:03)
[2021-09-15] MEDS: Pantoprazole 40 MG Tab.CR PO SCH ×2 (06:03→06:35)
[2021-09-15 07:50] LABS: ANION GAP 13.5 mmol/L (5-15)
[2021-09-15] MEDS: acetaZOLAMIDE 500 MG Vial IV SCH (08:37)
[2021-09-15] MEDS: Insulin Lispro 100 Unit/ML 3 ML KwikPen SUBCUT SCH (08:48)
[2021-09-15] MEDS: Magnesium Oxide 500 MG Tab PO SCH (08:50)
[2021-09-15] MEDS: Allopurinol 100 MG Tab PO SCH (08:50)
[2021-09-15] MEDS: Ferrous Sulfate 325 MG Tab PO SCH (08:50)
[2021-09-15] MEDS: Spironolactone 25 MG Tab PO SCH (08:50)
[2021-09-15] MEDS: Folic Acid 1 MG Tab PO SCH (08:50)
[2021-09-15] MEDS: Potassium Chloride 20 MEQ Tab.ER PO SCH (08:50)
[2021-09-15] MEDS: Nystatin Topical Powder 15 GM Bottle TOP SCH (08:51)
[2021-09-15] MEDS: [UNRECOGNIZED DRUG - OTHER] PO SCH (08:51)
[2021-09-15] MEDS: TADALAFIL 20 MG PO SCH (08:51)
[2021-09-15] MEDS: Formoterol/Mometasone 200-5 MCG 13 GM Inhaler INH SCH (08:52)
[2021-09-15] MEDS: Furosemide 40 MG/4 ML VIAL IVPUSH SCH (09:04)
[2021-09-15] MEDS ORDERED: Insulin Lispro 100 Unit/ML 3 ML KwikPen SUBCUT SCH ×2 (12:00→18:00)
--- NOTE | 2021-09-15 12:27 | PCM.DCSUM1 ---
Discharge Summary - Hospital Course Free Text/Narrative:: Admission Date: 09/12 Discharge Date: 09/15 Disposition: [facility] Please use acute inpatient discharge summary as admission H&P for [facility] Admission Diagnosis: Chronic diastolic heart failure with exacerbation: - Furosemide 100 mg IV 09/12 in ER - Diuril 250 mg IV BID starting 09/13 - Furosemide 80 mg IV TID, giving AM and PM dose 30 minutes after diuril starting 09/13 - Diamox 250 mg IV daily starting 09/13 - Spironolactone 50 mg PO daily, can increase to 100 mg PO daily if indicated - Metolazone 2.5 mg PO M// if indicated - 2 gram sodium diet - Fluid restriction 1500 mL daily - I/O - Daily weights - Dr. Veloz office: [phone] Renee intertrigo - Nystatin powder TID to affected areas until resolved (09/13) Secondary Diagnoses: Pulmonary HTN - Tadalafil 20 mg PO daily DM - Insulin glargine 32 units subcut qhs - Novolog 50-50-30, changed to 25-25-15 due to hypoglycemia on 09/15 - BG TIDAC and HS CKD 3 - Daily CMP ANDERS - Ferrous Sulfate 325 mg PO daily - Daily CBC Hypothyroidism - Levothyroxine 75 mcg PO daily Hypokalemia - Potassium Chloride 80 mEq q AM and 60 mEq q PM Hypomag - Mag Oxide 400 mg PO daily COPD - Advair 250/50 one puff PO BID Gout - Allopurinol 100 mg PO daily Acid Reflux - Omeprazole 40 mg PO daily Weakness - PT/OT consult in [facility] CODE STATUS: DNR with trial of intubation 09/15: No calls overnight. Net out 3250, weight down 3 pounds from admission at 347. She feels weak today and nearly tearful discussing this. She is going to be discharged from inpatient care to [facility] for ongoing diuresis. 09/14: No calls overnight. Net out 1700 mL's, weight only down 1 pounds. She overall feels a bit better. Renal indices rising. 09/13: No calls overnight. Nadira is seen on rounds this morning. She states "I don't know how all this fluid came on so quickly". She states one day she was up a pound then the next day she was down. She had been getting her Diuril IV only once per week for convenience sake and admits she likely needs to do it twice weekly as was originally ordered and recommended by Dr. Veloz. Weight is stable today, this is really the first day of the increased regimen of diuresis. Her fluid is in her abdomen and legs. This time she has no weeping of her lower extremities and no blister formation. She notes her breathing was a bit more difficult but even that seems a little better today. She states she had significant Charley horses in her legs last night and so they are sore today from that. 09/12: Nadira is admitted through the ER with weight gain due to edema. She stated to the ER provider she has been compliant with her diuretic regimen aside from this afternoon as she has had weight gain and was going to be traveling to the ER for evaluation. She is followed by Dr. Urban Veloz, cardiology from [place], [place]. She is in a regimen of Diuril 250 mg IV twice weekly (she sometimes only does this once weekly) via chronic PICC line and also furosemide 100 mg IV daily and an additional 100 mg IV in the afternoon for weight gain as well as spironolactone 50 mg PO daily. Her dry weight from a discharge in [place] was 326 but Nadira identifies her dry weight as 315. She has been as low as 309. She is currently 350 (352 with clothing and shoes on). She has not been in contact with either myself or Dr. Veloz with her weight gain. She has been admitted in the past with aggressive diuresis per Dr. Veloz but she was not this heavy at that time. She reports to the ED provider that "that last 10 pounds came on really fast". I would have preferred she be transferred to [facility], due to the degree of diuresis she will need but they were full and not taking admissions from outlying facilities. Diagnosis: Stroke: No Modified [place] Scale: Mod.Disablility Requiring Some Help,Able to Walk Without Assistance Modified Hillary Scale Score: 3 - Discharge Data Discharge Date: 09/15/21 Discharge Disposition: DC/Tfer W/I Hosp To [facility] Condition: Good - Referral to Home Health Primary Care Physician: Ariela Argueta MD - Discharge Plan *PRESCRIPTION DRUG MONITORING PROGRAM REVIEWED*: No *COPY OF PRESCRIPTION DRUG MONITORING REPORT IN PATIENT [place]: No Home Medications: Home Meds Acetaminophen [Acetaminophen Extra Strength] 500 - 1,000 mg PO Q6H PRN 10/21/20 [History] Albuterol/Ipratropium [DuoNeb 3.0-0.5 MG/3 ML] 1 ml INH Q4H PRN 10/21/20 [History] Cyclobenzaprine [Flexeril] 5 mg PO TID PRN 10/21/20 [History] Docusate Sodium [Colace] 200 mg PO BEDTIME PRN 10/21/20 [History] Ferrous Sulfate 325 mg PO DAILY 10/21/20 [History] Fexofenadine HCl 180 mg PO DAILY PRN 10/21/20 [History] Fluticasone/Salmeterol [Advair 250-50] 1 puff INH BID 10/21/20 [History] Folic Acid 1 mg PO DAILY 10/21/20 [History] Furosemide in 0.9 % NaCl [Furosemide 100 mg/100 ml-Ns] 200 mg IV DAILY 10/21/20 [History] Insulin Aspart [NovoLOG] 50 units SUBCUT BID@08,12 10/21/20 [History] Insulin Glargine,Hum.Rec.Anlog [Basaglar Kwikpen U-100] 32 unit SUBCUT BEDTIME 10/21/20 [History] L.acidoph,Paracasei, B.lactis [Probiotic] 1 cap PO DAILY 10/21/20 [History] Levothyroxine Sodium [Levoxyl] 75 mcg PO DAILY 10/21/20 [History] Magnesium Oxide 400 mg PO DAILY 10/21/20 [History] Ondansetron [Zofran ODT] 4 mg PO Q6HR PRN 10/21/20 [History] Potassium Chloride 80 meq PO WITHBREAKFAST 10/21/20 [History] Spironolactone 50 mg PO DAILY 10/21/20 [History] Tadalafil [Cialis] 20 mg PO DAILY 10/21/20 [History] Triamcinolone Acetonide [Triamcinolone Acetonide 0.5% Oint] 1 gm TOP BID PRN 10/21/20 [History] allopurinoL [Zyloprim] 100 mg PO DAILY 10/21/20 [History] polyethylene glycoL 3350 [MiraLAX] 17 gm PO DAILY PRN 10/21/20 [History] Acetaminophen/Codeine [Tylenol with Codeine No.3 300MG/30MG] 1 tab PO QID PRN 06/21/21 [History] Chlorothiazide Sodium 250 mg IV WE 06/21/21 [History] Omeprazole 40 mg PO DAILY 06/21/21 [History] Potassium Chloride 60 meq PO 1800 06/21/21 [History] metOLazone [Metolazone] 5 mg PO DAILY PRN 06/21/21 [History] Glucagon,Human Recombinant [Glucagen] 1 mg IM ASDIRECTED PRN vial 06/25/21 [Rx] Diclofenac Sodium [Voltaren 1% Gel] 2 gm TOP QID PRN 09/12/21 [History] Furosemide [Lasix] 100 mg IV PCLUNCH PRN 09/12/21 [History] Furosemide [Lasix] 400 mg PO ASDIRECTED 09/12/21 [History] Insulin Aspart [NovoLOG] 30 unit SUBCUT DAILY@1800 09/12/21 [History] Non-Formulary Medication [NF Drug] 250 mg PO ASDIRECTED 09/12/21 [History] Oxygen Therapy Mode: Nasal Cannula Forms: ED Department Discharge Referrals: Ariela Argueta MD [Primary Care Provider] - - Discharge Summary/Plan Comment DC Time >30 min.: Yes Total # of Minutes for Discharge Time: 45 - General Info Date of Service: 09/15/21 Admission Dx/Problem (Free Text: Chronic diastolic heart failure with exacerbation. Subjective Update: Feels more weak today, otherwise no change from previous days. - Patient Data Vitals - Most Recent: Last Vital Signs Temp 97.1 F 09/15/21 06:51 Pulse 77 09/15/21 06:51 Resp 20 09/15/21 06:51 BP 134/68 09/15/21 06:51 Pulse Ox 99 09/15/21 07:39 Weight - Most Recent: 347 lb I&O - Last 24 hours: Intake & Output 09/14/21 09/15/21 09/15/21 22:59 06:59 14:59 Intake Total 400 200 Output Total 1500 1700 Balance -1100 -1500 Lab Results - Last 24 hrs: Laboratory Results - last 24 hr 01/04/22 01/04/22 01/04/22 Range/Units 17:34 18:15 19:56 WBC (5.00-10.00) 10^3/uL RBC (3.80-5.50) 10^6/uL Hgb (12.0-16.0) g/dL Hct (37.0-47.0) % MCV (82.0-92.0) fL MCH (27.0-31.0) pg MCHC (32.0-36.0) g/dL RDW (11.5-14.5) % Plt Count (150-400) 10^3/uL MPV (7.4-10.4) fL Immature Gran % (Auto) (0.0-5.0) % Neut % (Auto) (50.0-70.0) % Lymph % (Auto) (20.0-40.0) % Ashe % (Auto) (2.0-8.0) % Eos % (Auto) (1.0-3.0) % Baso % (Auto) (0.0-1.0) % Neut # (Auto) (2.50-7.00) 10^3/uL Lymph # (Auto) (1.00-4.00) 10^3/uL Ashe # (Auto) (0.10-0.80) 10^3/uL Eos # (Auto) (0.10-0.30) 10^3/uL Baso # (Auto) (0.00-0.10) 10^3/uL Immature Gran # (Auto) (0.00-0.50) 10^3/uL Sodium (136-145) mmol/L Potassium (3.5-5.1) mmol/L Chloride (98-107) mmol/L Carbon Dioxide (21.0-32.0) mmol/L Anion Gap (5-15) mmol/L BUN (7-18) mg/dL Creatinine (0.51-1.17) mg/dL Est Cr Clr Drug Dosing mL/min Estimated GFR (MDRD) mL/min Glucose (70-140) mg/dL POC Glucose 48 L 75 150 H (70-140) mg/dL Calcium (8.7-10.3) mg/dL Total Bilirubin (0.2-1.0) mg/dL AST (15-37) U/L ALT (14-63) U/L Alkaline Phosphatase (46-116) U/L Total Protein (6.4-8.2) g/dL Albumin (3.40-5.00) g/dL 09/15/21 09/15/21 09/15/21 Range/Units 07:25 07:25 07:25 WBC 4.76 L (5.00-10.00) 10^3/uL RBC 3.34 L (3.80-5.50) 10^6/uL Hgb 9.7 L (12.0-16.0) g/dL Hct 31.3 L (37.0-47.0) % MCV 93.7 H (82.0-92.0) fL MCH 29.0 (27.0-31.0) pg MCHC 31.0 L (32.0-36.0) g/dL RDW 16.2 H (11.5-14.5) % Plt Count 151 (150-400) 10^3/uL MPV 10.0 (7.4-10.4) fL Immature Gran % (Auto) 0.4 (0.0-5.0) % Neut % (Auto) 68.3 (50.0-70.0) % Lymph % (Auto) 17.4 L (20.0-40.0) % Ashe % (Auto) 8.2 H (2.0-8.0) % Eos % (Auto) 5.5 H (1.0-3.0) % Baso % (Auto) 0.2 (0.0-1.0) % Neut # (Auto) 3.25 (2.50-7.00) 10^3/uL Lymph # (Auto) 0.83 L (1.00-4.00) 10^3/uL Ashe # (Auto) 0.39 (0.10-0.80) 10^3/uL Eos # (Auto) 0.26 (0.10-0.30) 10^3/uL Baso # (Auto) 0.01 (0.00-0.10) 10^3/uL Immature Gran # (Auto) 0.02 (0.00-0.50) 10^3/uL Sodium 137 (136-145) mmol/L Potassium 4.4 (3.5-5.1) mmol/L Chloride 100 (98-107) mmol/L Carbon Dioxide 27.9 (21.0-32.0) mmol/L Anion Gap 13.5 (5-15) mmol/L BUN 52 H* (7-18) mg/dL Creatinine 1.56 H (0.51-1.17) mg/dL Est Cr Clr Drug Dosing 31.33 mL/min Estimated GFR (MDRD) 34 mL/min Glucose 151 H (70-140) mg/dL POC Glucose 147 H (70-140) mg/dL Calcium 9.1 (8.7-10.3) mg/dL Total Bilirubin 1.0 (0.2-1.0) mg/dL AST 28 (15-37) U/L ALT 18 (14-63) U/L Alkaline Phosphatase 131 H (46-116) U/L Total Protein 8.5 H (6.4-8.2) g/dL Albumin 3.27 L (3.40-5.00) g/dL 09/15/21 Range/Units 11:41 WBC (5.00-10.00) 10^3/uL RBC (3.80-5.50) 10^6/uL Hgb (12.0-16.0) g/dL Hct (37.0-47.0) % MCV (82.0-92.0) fL MCH (27.0-31.0) pg MCHC (32.0-36.0) g/dL RDW (11.5-14.5) % Plt Count (150-400) 10^3/uL MPV (7.4-10.4) fL Immature Gran % (Auto) (0.0-5.0) % Neut % (Auto) (50.0-70.0) % Lymph % (Auto) (20.0-40.0) % Ashe % (Auto) (2.0-8.0) % Eos % (Auto) (1.0-3.0) % Baso % (Auto) (0.0-1.0) % Neut # (Auto) (2.50-7.00) 10^3/uL Lymph # (Auto) (1.00-4.00) 10^3/uL Ashe # (Auto) (0.10-0.80) 10^3/uL Eos # (Auto) (0.10-0.30) 10^3/uL Baso # (Auto) (0.00-0.10) 10^3/uL Immature Gran # (Auto) (0.00-0.50) 10^3/uL Sodium (136-145) mmol/L Potassium (3.5-5.1) mmol/L Chloride (98-107) mmol/L Carbon Dioxide (21.0-32.0) mmol/L Anion Gap (5-15) mmol/L BUN (7-18) mg/dL Creatinine (0.51-1.17) mg/dL Est Cr Clr Drug Dosing mL/min Estimated GFR (MDRD) mL/min Glucose (70-140) mg/dL POC Glucose 194 H (70-140) mg/dL Calcium (8.7-10.3) mg/dL Total Bilirubin (0.2-1.0) mg/dL AST (15-37) U/L ALT (14-63) U/L Alkaline Phosphatase (46-116) U/L Total Protein (6.4-8.2) g/dL Albumin (3.40-5.00) g/dL Med Orders - Current: Current Medications Acetaminophen (Acetaminophen 500 Mg Tab) 500 - 1,000 mg PO Q6H PRN PRN Reason: Pain Last Admin: 09/15/21 06:02 Dose: 1,000 mg Documented by: Acetaminophen/Codeine Phosphate (Acetaminophen/Codeine 300-30 Mg Tab) 1 tab PO QID PRN PRN Reason: Pain Last Admin: 09/14/21 21:09 Dose: 1 tab Documented by: Acetazolamide (Acetazolamide 500 Mg Vial) 250 mg IV DAILY@0800 [facility] Last Admin: 09/15/21 08:37 Dose: 250 mg Documented by: Albuterol/Ipratropium (Albuterol/Ipratropium 3.0-0.5 Mg/3 Ml Neb Soln) 1 ml INH Q4H PRN PRN Reason: Dyspnea Allopurinol (Allopurinol 100 Mg Tab) 100 mg PO DAILY [facility] Last Admin: 09/15/21 08:50 Dose: 100 mg Documented by: Chlorothiazide (Chlorothiazide 500 Mg Vial) 250 mg IV Q12H [facility] Last Admin: 09/15/21 08:36 Dose: 250 mg Documented by: Cyclobenzaprine HCl (Cyclobenzaprine 5 Mg Tab) 5 mg PO TID PRN PRN Reason: muscle relaxant Last Admin: 09/15/21 06:02 Dose: 5 mg Documented by: Dextrose/Water (50% Dextrose In Water 50 Ml Syringe) 50 ml IVPUSH ASDIRECTED PRN PRN Reason: Hypoglycemia Diclofenac Sodium (Diclofenac Sodium 1% Gel 100 Gm Tube) 2 gm TOP QID PRN PRN Reason: Pain Docusate Sodium (Docusate Sodium 100 Mg Cap) 200 mg PO BEDTIME PRN PRN Reason: Constipation Last Admin: 09/13/21 22:38 Dose: 200 mg Documented by: Ferrous Sulfate (Ferrous Sulfate 325 Mg Tab) 325 mg PO DAILY [facility] Last Admin: 09/15/21 08:50 Dose: 325 mg Documented by: Folic Acid (Folic Acid 1 Mg Tab) 1 mg PO DAILY [facility] Last Admin: 09/15/21 08:50 Dose: 1 mg Documented by: Furosemide (Furosemide 40 Mg/4 Ml Vial) 80 mg IVPUSH TID@0830,1330,2030 [facility] Last Admin: 09/15/21 09:04 Dose: 80 mg Documented by: Glucagon (Glucagon,Human Recombinant 1 Mg Vial) 1 mg IM ASDIRECTED PRN PRN Reason: Hypoglycemia Insulin Glargine (Insulin Glargine,Hum.Rec.Anlog 100 Unit/Ml 3 Ml Pen) 32 unit SUBCUT BEDTIME [facility] Last Admin: 09/14/21 20:03 Dose: Not Given Documented by: Insulin Human Lispro (Insulin Lispro 100 Unit/Ml 3 Ml Kwikpen) 25 unit SUBCUT 0800,1200 [facility] Last Admin: 09/15/21 12:19 Dose: 25 units Documented by: Insulin Human Lispro (Insulin Lispro 100 Unit/Ml 3 Ml Kwikpen) 15 unit SUBCUT DAILY@1800 [facility] Levothyroxine Sodium (Levothyroxine 75 Mcg Tab) 75 mcg PO ACBRK [facility] Last Admin: 09/15/21 06:03 Dose: 75 mcg Documented by: Magnesium Oxide (Magnesium Oxide 500 Mg Tab) 500 mg PO DAILY [facility] Last Admin: 09/15/21 08:50 Dose: 500 mg Documented by: Mometasone Furoate/Formoterol Fumar (Formoterol/Mometasone 200-5 Mcg 13 Gm Inhaler) 2 puff INH BID [facility] Last Admin: 09/15/21 08:52 Dose: 2 puff Documented by: Tadalafil [Cialis] 20 Mg Tablet - Nonformulary 20 mg PO DAILY [facility] Last Admin: 09/15/21 08:51 Dose: 20 mg Documented by: Nystatin (Nystatin Topical Powder 15 Gm Bottle) 1 gm TOP TID [facility] Last Admin: 09/15/21 08:51 Dose: 1 applic Documented by: Ondansetron HCl (Ondansetron 4 Mg Tab.Dis) 4 mg PO Q6HR PRN PRN Reason: Nausea Pantoprazole Sodium (Pantoprazole 40 Mg Tab.Cr) 40 mg PO ACBREAKFAST [facility] Last Admin: 09/15/21 06:35 Dose: Not Given Documented by: Polyethylene Glycol (Polyethylene Glycol 3350 Powder 17 Gm Packet) 17 gm PO DAILY PRN PRN Reason: Constipation Potassium Chloride (Potassium Chloride 20 Meq Tab.Er) 60 meq PO 1800 [facility] Last Admin: 09/14/21 18:33 Dose: 60 meq Documented by: Potassium Chloride (Potassium Chloride 20 Meq Tab.Er) 80 meq PO WITHBREAKFAST [facility] Last Admin: 09/15/21 08:50 Dose: 80 meq Documented by: Spironolactone (Spironolactone 25 Mg Tab) 50 mg PO DAILY [facility] Last Admin: 09/15/21 08:50 Dose: 50 mg Documented by: Triamcinolone Acetonide (Triamcinolone Acetonide 0.1% Oint 15 Gm Tube) 1 gm TOP BID PRN PRN Reason: Rash Discontinued Medications Furosemide (Furosemide 40 Mg/4 Ml Vial) 100 mg IVPUSH NOW ONE Stop: 09/12/21 20:12 Last Admin: 09/12/21 20:18 Dose: 100 mg Documented by: Furosemide (Furosemide 40 Mg/4 Ml Vial) 80 mg IVPUSH 0830,1330,2030 [facility] Last Admin: 09/13/21 08:38 Dose: 80 mg Documented by: Glucagon (Glucagon,Human Recombinant 1 Mg Vial) 1 mg IM ASDIRECTED PRN PRN Reason: Hypoglycemia Acetazolamide 250 mg/ Sodium (Chloride) 50 mls @ 100 mls/hr IV DAILY@0800 [facility] Last Admin: 09/13/21 08:37 Dose: 100 mls/hr Documented by: Sodium Chloride (Normal Saline) Confirm Administered Dose 50 mls @ as directed .ROUTE .STK-MED ONE Stop: 09/13/21 08:52 Last Admin: 09/13/21 10:42 Dose: 125 mls/hr Documented by: Insulin Aspart (Insulin Aspart 100 Units/Ml 3 Ml Pen) 50 unit SUBCUT 0800,1200 [facility] Last Admin: 09/13/21 08:37 Dose: 50 units Documented by: Insulin Human Lispro (Insulin Lispro 100 Unit/Ml 3 Ml Kwikpen) 30 unit SUBCUT DAILY@1800 [facility] Last Admin: 09/14/21 18:26 Dose: Not Given Documented by: Insulin Human Lispro (Insulin Lispro 100 Unit/Ml 3 Ml Kwikpen) 50 unit SUBCUT 0800,1200 [facility] Last Admin: 09/15/21 08:48 Dose: Not Given Documented by: Mometasone Furoate/Formoterol Fumar (Formoterol/Mometasone 200-5 Mcg 13 Gm Inhaler) 2 puff INH NOW ONE Stop: 09/12/21 22:31 Last Admin: 09/12/21 22:41 Dose: 2 puff Documented by: Nystatin (Nystatin Topical Powder 15 Gm Bottle) Confirm Administered Dose 15 gm .ROUTE .STK-MED ONE Stop: 09/13/21 10:34 Last Admin: 09/13/21 10:43 Dose: Not Given Documented by: Potassium Chloride (Potassium Chloride 10 Meq Tab.Er) 80 meq PO WITHBREAKFAST [facility] Last Admin: 09/13/21 12:01 Dose: Not Given Documented by: Potassium Chloride (Potassium Chloride 10 Meq Tab.Er) 60 meq PO NOW ONE Stop: 09/12/21 21:31 Last Admin: 09/12/21 22:06 Dose: 60 meq Documented by: - Exam Quality Assessment: Reports: Supplemental Oxygen General: Reports: Alert, Oriented, Cooperative, No Acute Distress Lungs: Reports: Clear to Auscultation, Normal Respiratory Effort Cardiovascular: Reports: Regular Rate, Regular Rhythm, No Murmurs Extremities: Pedal Edema
== END 2021-09-15 12:39 | disposition swing bed (61) | DRG 291 ==
LOC: KA.ED 17:32 → UNDOADMIN 20:00 → KA.MS 20:00
PROVIDERS: ADMIT Internal Medicine; ATTEND Internal Medicine
DX: I50.33 Acute on chronic diastolic (congestive) heart failure (principal); J30.9 Allergic rhinitis, unspecified; I13.0 Hypertensive heart and chronic kidney disease with heart failure and stage 1 through stage 4 chronic kidney disease, or unspecified chronic kidney disease; E78.00 Pure hypercholesterolemia, unspecified; I11.0 Hypertensive heart disease with heart failure; I50.23 Acute on chronic systolic (congestive) heart failure; L30.4 Erythema intertrigo; G47.30 Sleep apnea, unspecified; K59.09 Other constipation; I27.20 Pulmonary hypertension, unspecified; E11.22 Type 2 diabetes mellitus with diabetic chronic kidney disease; K59.00 Constipation, unspecified; Z66 Do not resuscitate; E11.42 Type 2 diabetes mellitus with diabetic polyneuropathy; F41.9 Anxiety disorder, unspecified; Z88.1 Allergy status to other antibiotic agents; Z88.2 Allergy status to sulfonamides; Z88.8 Allergy status to other drugs, medicaments and biological substances; F32.A Depression, unspecified; N18.30 Chronic kidney disease, stage 3 unspecified; Z20.822 Contact with and (suspected) exposure to COVID-19; M10.9 Gout, unspecified; E03.9 Hypothyroidism, unspecified; D50.9 Iron deficiency anemia, unspecified; E87.6 Hypokalemia; E83.42 Hypomagnesemia; J44.9 Chronic obstructive pulmonary disease, unspecified; K21.9 Gastro-esophageal reflux disease without esophagitis; I25.10 Atherosclerotic heart disease of native coronary artery without angina pectoris; E78.5 Hyperlipidemia, unspecified; G47.33 Obstructive sleep apnea (adult) (pediatric); R53.1 Weakness; Z79.899 Other long term (current) drug therapy; Z79.890 Hormone replacement therapy; Z79.4 Long term (current) use of insulin; Z79.1 Long term (current) use of non-steroidal anti-inflammatories (NSAID)
CPT/HCPCS: 36415; 71046; 80053; 82947; 83735; 83880; 84439; 84443; 84484; 85025; 93005; 96374; 99285-25; A9270-GY; J1120; J1205; J1815-GY; J1940; U0002

== ENCOUNTER 2021-09-15 09:22 | Inpatient (IN) | payer MEDICARE, MEDICAID ==
[2021-09-15] MEDS ORDERED: Polyethylene Glycol 3350 Powder 17 GM Packet PO PRN (12:32)
[2021-09-15] MEDS ORDERED: Diclofenac Sodium 1% Gel 100 GM Tube TOP PRN (12:32)
[2021-09-15] MEDS ORDERED: Docusate Sodium 100 MG Cap PO PRN (12:32)
[2021-09-15] MEDS ORDERED: Ondansetron 4 MG Tab.DIS PO PRN (12:32)
[2021-09-15] MEDS ORDERED: Glucagon,Human Recombinant 1 MG Vial IM PRN ×2 (12:32)
[2021-09-15] MEDS ORDERED: Triamcinolone Acetonide 0.1% Oint 15 GM Tube TOP PRN (12:32)
[2021-09-15] MEDS ORDERED: 50% Dextrose in Water 50 ML Syringe IVPUSH PRN (12:32)
[2021-09-15] MEDS ORDERED: Albuterol/Ipratropium 3.0-0.5 MG/3 ML Neb Soln INH PRN (12:32)
[2021-09-15] MEDS: Furosemide 40 MG/4 ML VIAL IVPUSH SCH ×2 (14:00→21:09)
[2021-09-15] MEDS: Nystatin Topical Powder 15 GM Bottle TOP SCH ×2 (14:33→20:19)
[2021-09-15] MEDS ORDERED: Insulin Lispro 100 Unit/ML 3 ML KwikPen SUBCUT SCH (18:00)
[2021-09-15] MEDS: Potassium Chloride 20 MEQ Tab.ER PO SCH (18:11)
[2021-09-15] MEDS: Acetaminophen/Codeine 300-30 MG Tab PO PRN (20:08)
[2021-09-15] MEDS ORDERED: Insulin Glargine,Hum.Rec.Anlog 100 UNIT/ML 3 ML Pen SUBCUT SCH (21:00)
[2021-09-15] MEDS: Formoterol/Mometasone 200-5 MCG 13 GM Inhaler INH SCH (21:01)
[2021-09-15] MEDS: Acetaminophen 500 MG Tab PO PRN (23:39)
[2021-09-16] MEDS: Cyclobenzaprine 5 MG Tab PO PRN (02:15)
[2021-09-16] MEDS: Levothyroxine 75 MCG Tab PO SCH (06:10)
[2021-09-16] MEDS: Pantoprazole 40 MG Tab.CR PO SCH (07:32)
[2021-09-16 07:56] LABS: ANION GAP 12.4 mmol/L (5-15)
[2021-09-16] MEDS: [UNRECOGNIZED DRUG - OTHER] PO SCH (08:13)
[2021-09-16] MEDS: Allopurinol 100 MG Tab PO SCH (08:13)
[2021-09-16] MEDS: TADALAFIL 20 MG PO SCH (08:13)
[2021-09-16] MEDS: Magnesium Oxide 500 MG Tab PO SCH (08:14)
[2021-09-16] MEDS: Ferrous Sulfate 325 MG Tab PO SCH (08:14)
[2021-09-16] MEDS: Folic Acid 1 MG Tab PO SCH (08:14)
[2021-09-16] MEDS: Spironolactone 25 MG Tab PO SCH (08:15)
[2021-09-16] MEDS: Potassium Chloride 20 MEQ Tab.ER PO SCH ×2 (08:15→17:58)
[2021-09-16] MEDS: Insulin Lispro 100 Unit/ML 3 ML KwikPen SUBCUT SCH ×2 (08:16→12:15)
[2021-09-16] MEDS: acetaZOLAMIDE 500 MG Vial IV SCH (08:36)
[2021-09-16] MEDS: Formoterol/Mometasone 200-5 MCG 13 GM Inhaler INH SCH ×2 (08:41→20:18)
[2021-09-16] MEDS: Furosemide 40 MG/4 ML VIAL IVPUSH SCH ×3 (09:36→20:16)
[2021-09-16] MEDS: Nystatin Topical Powder 15 GM Bottle TOP SCH ×3 (09:42→20:18)
[2021-09-16] MEDS: Sodium Chloride 0.9% 10 ML Syringe FLUSH PRN ×2 (13:43→16:59)
[2021-09-17] MEDS: Cyclobenzaprine 5 MG Tab PO PRN (05:40)
[2021-09-17] MEDS: Acetaminophen 500 MG Tab PO PRN (05:40)
[2021-09-17] MEDS: Levothyroxine 75 MCG Tab PO SCH ×2 (05:41→06:30)
[2021-09-17] MEDS: Pantoprazole 40 MG Tab.CR PO SCH ×2 (05:41→06:30)
[2021-09-17] MEDS: Potassium Chloride 20 MEQ Tab.ER PO SCH ×2 (08:38→17:52)
[2021-09-17] MEDS: Spironolactone 25 MG Tab PO SCH (08:39)
[2021-09-17] MEDS: Magnesium Oxide 500 MG Tab PO SCH (08:39)
[2021-09-17] MEDS: Allopurinol 100 MG Tab PO SCH (08:39)
[2021-09-17] MEDS: Folic Acid 1 MG Tab PO SCH (08:39)
[2021-09-17] MEDS: Ferrous Sulfate 325 MG Tab PO SCH (08:39)
[2021-09-17] MEDS: acetaZOLAMIDE 500 MG Vial IV SCH (08:44)
[2021-09-17] MEDS: Furosemide 40 MG/4 ML VIAL IVPUSH SCH ×3 (08:49→20:12)
[2021-09-17 09:13] LABS: ANION GAP 11.7 mmol/L (5-15)
[2021-09-17] MEDS: Formoterol/Mometasone 200-5 MCG 13 GM Inhaler INH SCH ×2 (09:14→20:49)
[2021-09-17] MEDS: Nystatin Topical Powder 15 GM Bottle TOP SCH ×3 (09:14→20:49)
[2021-09-17] MEDS: TADALAFIL 20 MG PO SCH (09:15)
[2021-09-17] MEDS: [UNRECOGNIZED DRUG - OTHER] PO SCH (09:15)
[2021-09-17] MEDS ORDERED: Potassium Chloride 20 MEQ Tab.ER PO ONE (09:37)
[2021-09-17] MEDS: Insulin Glargine,Hum.Rec.Anlog 100 UNIT/ML 3 ML Pen SUBCUT SCH (20:50)
[2021-09-17] MEDS: Acetaminophen/Codeine 300-30 MG Tab PO PRN (21:04)
[2021-09-18] MEDS: Acetaminophen 500 MG Tab PO PRN (02:58)
[2021-09-18] MEDS: Pantoprazole 40 MG Tab.CR PO SCH ×2 (06:03→06:46)
[2021-09-18] MEDS: Levothyroxine 75 MCG Tab PO SCH (06:03)
[2021-09-18 08:00] LABS: ANION GAP 12.8 mmol/L (5-15)
[2021-09-18] MEDS: Ferrous Sulfate 325 MG Tab PO SCH (08:29)
[2021-09-18] MEDS: Spironolactone 25 MG Tab PO SCH (08:29)
[2021-09-18] MEDS: Magnesium Oxide 500 MG Tab PO SCH (08:29)
[2021-09-18] MEDS: Folic Acid 1 MG Tab PO SCH (08:29)
[2021-09-18] MEDS: Allopurinol 100 MG Tab PO SCH (08:29)
[2021-09-18] MEDS: Potassium Chloride 20 MEQ Tab.ER PO SCH ×2 (08:29→17:56)
[2021-09-18] MEDS: acetaZOLAMIDE 500 MG Vial IV SCH (08:34)
[2021-09-18] MEDS: Insulin Lispro 100 Unit/ML 3 ML KwikPen SUBCUT SCH ×3 (08:45→19:23)
[2021-09-18] MEDS: Nystatin Topical Powder 15 GM Bottle TOP SCH ×3 (08:48→21:38)
[2021-09-18] MEDS: Formoterol/Mometasone 200-5 MCG 13 GM Inhaler INH SCH ×2 (08:48→21:38)
[2021-09-18] MEDS: Furosemide 40 MG/4 ML VIAL IVPUSH SCH ×3 (08:53→20:33)
[2021-09-18] MEDS: [UNRECOGNIZED DRUG - OTHER] PO SCH (10:00)
[2021-09-18] MEDS: TADALAFIL 20 MG PO SCH (10:00)
[2021-09-18] MEDS: Acetaminophen/Codeine 300-30 MG Tab PO PRN ×2 (14:41→21:40)
[2021-09-18] MEDS: Cyclobenzaprine 5 MG Tab PO PRN (21:39)
[2021-09-18] MEDS: Insulin Glargine,Hum.Rec.Anlog 100 UNIT/ML 3 ML Pen SUBCUT SCH (21:41)
[2021-09-19] MEDS: Acetaminophen 500 MG Tab PO PRN (03:44)
[2021-09-19] MEDS: Pantoprazole 40 MG Tab.CR PO SCH ×2 (06:11→06:30)
[2021-09-19] MEDS: Levothyroxine 75 MCG Tab PO SCH (06:11)
[2021-09-19] MEDS: acetaZOLAMIDE 500 MG Vial IV SCH (08:02)
[2021-09-19 08:10] LABS: ANION GAP 11.3 mmol/L (5-15)
[2021-09-19] MEDS: Potassium Chloride 20 MEQ Tab.ER PO SCH ×2 (08:13→17:41)
[2021-09-19] MEDS: Insulin Lispro 100 Unit/ML 3 ML KwikPen SUBCUT SCH ×4 (08:15→18:35)
[2021-09-19] MEDS: Furosemide 40 MG/4 ML VIAL IVPUSH SCH ×3 (08:39→20:17)
[2021-09-19] MEDS: Allopurinol 100 MG Tab PO SCH (08:46)
[2021-09-19] MEDS: Formoterol/Mometasone 200-5 MCG 13 GM Inhaler INH SCH ×2 (08:46→22:07)
[2021-09-19] MEDS: Spironolactone 25 MG Tab PO SCH (08:47)
[2021-09-19] MEDS: Ferrous Sulfate 325 MG Tab PO SCH (08:47)
[2021-09-19] MEDS: Folic Acid 1 MG Tab PO SCH (08:47)
[2021-09-19] MEDS: [UNRECOGNIZED DRUG - OTHER] PO SCH (08:48)
[2021-09-19] MEDS: TADALAFIL 20 MG PO SCH (08:48)
[2021-09-19] MEDS: Magnesium Oxide 500 MG Tab PO SCH (08:48)
[2021-09-19] MEDS: Nystatin Topical Powder 15 GM Bottle TOP SCH ×3 (13:00→22:11)
[2021-09-19] MEDS: Sodium Chloride 0.9% 10 ML Syringe FLUSH PRN (13:42)
[2021-09-19] MEDS: Cyclobenzaprine 5 MG Tab PO PRN (21:04)
[2021-09-19] MEDS: Acetaminophen/Codeine 300-30 MG Tab PO PRN (21:05)
[2021-09-19] MEDS: Insulin Glargine,Hum.Rec.Anlog 100 UNIT/ML 3 ML Pen SUBCUT SCH (22:11)
[2021-09-20] MEDS: Acetaminophen 500 MG Tab PO PRN ×2 (03:00→10:18)
[2021-09-20] MEDS: Pantoprazole 40 MG Tab.CR PO SCH (07:38)
[2021-09-20] MEDS: Levothyroxine 75 MCG Tab PO SCH (07:39)
[2021-09-20 07:48] LABS: ANION GAP 11.8 mmol/L (5-15)
[2021-09-20] MEDS: Potassium Chloride 20 MEQ Tab.ER PO SCH ×2 (08:17→18:09)
[2021-09-20] MEDS: Insulin Lispro 100 Unit/ML 3 ML KwikPen SUBCUT SCH ×3 (08:19→18:08)
[2021-09-20] MEDS: acetaZOLAMIDE 500 MG Vial IV SCH (08:20)
[2021-09-20] MEDS: Sodium Chloride 0.9% 10 ML Syringe FLUSH PRN ×2 (08:23→13:46)
[2021-09-20] MEDS: Allopurinol 100 MG Tab PO SCH (08:26)
[2021-09-20] MEDS: TADALAFIL 20 MG PO SCH (08:26)
[2021-09-20] MEDS: [UNRECOGNIZED DRUG - OTHER] PO SCH (08:26)
[2021-09-20] MEDS: Folic Acid 1 MG Tab PO SCH (08:26)
[2021-09-20] MEDS: Formoterol/Mometasone 200-5 MCG 13 GM Inhaler INH SCH ×2 (08:26→20:43)
[2021-09-20] MEDS: Ferrous Sulfate 325 MG Tab PO SCH (08:26)
[2021-09-20] MEDS: Spironolactone 25 MG Tab PO SCH (08:26)
[2021-09-20] MEDS: Magnesium Oxide 500 MG Tab PO SCH (08:26)
[2021-09-20] MEDS: Furosemide 40 MG/4 ML VIAL IVPUSH SCH ×3 (08:46→20:15)
[2021-09-20] MEDS ORDERED: Metolazone 2.5 MG Tab PO ONE (09:40)
[2021-09-20] MEDS: Nystatin Topical Powder 15 GM Bottle TOP SCH ×3 (10:23→20:42)
[2021-09-20] MEDS: Fluconazole 100 MG Tab PO SCH (12:01)
[2021-09-20] MEDS: Insulin Glargine,Hum.Rec.Anlog 100 UNIT/ML 3 ML Pen SUBCUT SCH (20:47)
[2021-09-21] MEDS: Acetaminophen/Codeine 300-30 MG Tab PO PRN (04:37)
[2021-09-21] MEDS: Levothyroxine 75 MCG Tab PO SCH ×2 (05:58→06:07)
[2021-09-21] MEDS: Pantoprazole 40 MG Tab.CR PO SCH ×2 (05:58→06:35)
[2021-09-21 07:28] LABS: ANION GAP 13.9 mmol/L (5-15)
[2021-09-21] MEDS: Potassium Chloride 20 MEQ Tab.ER PO SCH ×2 (08:22→18:00)
[2021-09-21] MEDS: Insulin Lispro 100 Unit/ML 3 ML KwikPen SUBCUT SCH ×3 (08:26→18:01)
[2021-09-21] MEDS: acetaZOLAMIDE 500 MG Vial IV SCH (08:47)
[2021-09-21] MEDS: Allopurinol 100 MG Tab PO SCH (08:57)
[2021-09-21] MEDS: Magnesium Oxide 500 MG Tab PO SCH (08:58)
[2021-09-21] MEDS: Fluconazole 100 MG Tab PO SCH (08:58)
[2021-09-21] MEDS: Folic Acid 1 MG Tab PO SCH (08:58)
[2021-09-21] MEDS: Spironolactone 25 MG Tab PO SCH (08:58)
[2021-09-21] MEDS: Ferrous Sulfate 325 MG Tab PO SCH (08:58)
[2021-09-21] MEDS: Furosemide 40 MG/4 ML VIAL IVPUSH SCH ×3 (08:59→20:44)
[2021-09-21] MEDS: TADALAFIL 20 MG PO SCH (09:01)
[2021-09-21] MEDS: [UNRECOGNIZED DRUG - OTHER] PO SCH (09:01)
[2021-09-21] MEDS: Nystatin Topical Powder 15 GM Bottle TOP SCH ×3 (09:01→20:51)
[2021-09-21] MEDS: Formoterol/Mometasone 200-5 MCG 13 GM Inhaler INH SCH ×2 (09:01→20:51)
[2021-09-21] MEDS: Insulin Glargine,Hum.Rec.Anlog 100 UNIT/ML 3 ML Pen SUBCUT SCH (20:50)
[2021-09-21] MEDS: Acetaminophen 500 MG Tab PO PRN (22:26)
[2021-09-22] MEDS: Acetaminophen/Codeine 300-30 MG Tab PO PRN ×3 (02:43→21:45)
[2021-09-22] MEDS: Acetaminophen 500 MG Tab PO PRN (04:30)
[2021-09-22] MEDS: Pantoprazole 40 MG Tab.CR PO SCH ×2 (06:05→06:29)
[2021-09-22] MEDS: Levothyroxine 75 MCG Tab PO SCH (06:05)
[2021-09-22 07:51] LABS: ANION GAP 11.5 mmol/L (5-15)
[2021-09-22] MEDS: acetaZOLAMIDE 500 MG Vial IV SCH (08:08)
[2021-09-22] MEDS: Fluconazole 100 MG Tab PO SCH (08:09)
[2021-09-22] MEDS: Formoterol/Mometasone 200-5 MCG 13 GM Inhaler INH SCH ×2 (08:09→20:38)
[2021-09-22] MEDS: Spironolactone 25 MG Tab PO SCH (08:09)
[2021-09-22] MEDS: Insulin Lispro 100 Unit/ML 3 ML KwikPen SUBCUT SCH ×3 (08:09→17:28)
[2021-09-22] MEDS: Potassium Chloride 20 MEQ Tab.ER PO SCH ×2 (08:09→17:28)
[2021-09-22] MEDS: Ferrous Sulfate 325 MG Tab PO SCH (08:10)
[2021-09-22] MEDS: Nystatin Topical Powder 15 GM Bottle TOP SCH ×3 (08:10→20:38)
[2021-09-22] MEDS: Magnesium Oxide 500 MG Tab PO SCH (08:10)
[2021-09-22] MEDS: Folic Acid 1 MG Tab PO SCH (08:10)
[2021-09-22] MEDS: Allopurinol 100 MG Tab PO SCH (08:11)
[2021-09-22] MEDS: TADALAFIL 20 MG PO SCH (08:11)
[2021-09-22] MEDS: [UNRECOGNIZED DRUG - OTHER] PO SCH (08:11)
[2021-09-22] MEDS: Metolazone 2.5 MG Tab PO SCH (08:11)
[2021-09-22] MEDS: Furosemide 40 MG/4 ML VIAL IVPUSH SCH ×3 (08:40→20:38)
[2021-09-22] MEDS: Insulin Glargine,Hum.Rec.Anlog 100 UNIT/ML 3 ML Pen SUBCUT SCH (20:38)
[2021-09-23] MEDS: Acetaminophen/Codeine 300-30 MG Tab PO PRN ×2 (03:34→17:30)
[2021-09-23] MEDS: Pantoprazole 40 MG Tab.CR PO SCH ×2 (05:58→06:29)
[2021-09-23] MEDS: Levothyroxine 75 MCG Tab PO SCH (05:59)
[2021-09-23 07:41] LABS: ANION GAP 12.9 mmol/L (5-15)
[2021-09-23] MEDS: acetaZOLAMIDE 500 MG Vial IV SCH (08:15)
[2021-09-23] MEDS: Insulin Lispro 100 Unit/ML 3 ML KwikPen SUBCUT SCH ×3 (08:15→18:04)
[2021-09-23] MEDS: Potassium Chloride 20 MEQ Tab.ER PO SCH ×2 (08:15→18:05)
[2021-09-23] MEDS: Fluconazole 100 MG Tab PO SCH (08:15)
[2021-09-23] MEDS: Spironolactone 25 MG Tab PO SCH (08:15)
[2021-09-23] MEDS: Formoterol/Mometasone 200-5 MCG 13 GM Inhaler INH SCH ×2 (08:15→22:26)
[2021-09-23] MEDS: Furosemide 40 MG/4 ML VIAL IVPUSH SCH ×3 (08:15→21:40)
[2021-09-23] MEDS: Magnesium Oxide 500 MG Tab PO SCH (08:16)
[2021-09-23] MEDS: TADALAFIL 20 MG PO SCH (08:16)
[2021-09-23] MEDS: Nystatin Topical Powder 15 GM Bottle TOP SCH ×3 (08:16→22:26)
[2021-09-23] MEDS: Ferrous Sulfate 325 MG Tab PO SCH (08:16)
[2021-09-23] MEDS: Allopurinol 100 MG Tab PO SCH (08:16)
[2021-09-23] MEDS: [UNRECOGNIZED DRUG - OTHER] PO SCH (08:16)
[2021-09-23] MEDS: Folic Acid 1 MG Tab PO SCH (08:16)
[2021-09-23] MEDS ORDERED: Potassium Chloride 20 MEQ Tab.ER PO ONE (09:09)
[2021-09-23] MEDS: Acetaminophen 500 MG Tab PO PRN (22:25)
[2021-09-23] MEDS: Cyclobenzaprine 5 MG Tab PO PRN (22:25)
[2021-09-23] MEDS: Insulin Glargine,Hum.Rec.Anlog 100 UNIT/ML 3 ML Pen SUBCUT SCH (22:37)
[2021-09-24] MEDS: Pantoprazole 40 MG Tab.CR PO SCH ×2 (04:57→06:29)
[2021-09-24] MEDS: Levothyroxine 75 MCG Tab PO SCH ×2 (04:57→06:29)
[2021-09-24 07:24] LABS: ANION GAP 11.2 mmol/L (5-15)
[2021-09-24] MEDS: acetaZOLAMIDE 500 MG Vial IV SCH (08:22)
[2021-09-24] MEDS: Potassium Chloride 20 MEQ Tab.ER PO SCH ×2 (08:22→17:19)
[2021-09-24] MEDS: Insulin Lispro 100 Unit/ML 3 ML KwikPen SUBCUT SCH ×2 (08:22→13:28)
[2021-09-24] MEDS: Ferrous Sulfate 325 MG Tab PO SCH (08:23)
[2021-09-24] MEDS: Metolazone 2.5 MG Tab PO SCH (08:23)
[2021-09-24] MEDS: Furosemide 40 MG/4 ML VIAL IVPUSH SCH ×3 (08:23→20:03)
[2021-09-24] MEDS: TADALAFIL 20 MG PO SCH (08:23)
[2021-09-24] MEDS: Nystatin Topical Powder 15 GM Bottle TOP SCH ×3 (08:23→20:03)
[2021-09-24] MEDS: Folic Acid 1 MG Tab PO SCH (08:23)
[2021-09-24] MEDS: Allopurinol 100 MG Tab PO SCH (08:23)
[2021-09-24] MEDS: [UNRECOGNIZED DRUG - OTHER] PO SCH (08:23)
[2021-09-24] MEDS: Spironolactone 25 MG Tab PO SCH (08:23)
[2021-09-24] MEDS: Formoterol/Mometasone 200-5 MCG 13 GM Inhaler INH SCH ×2 (08:23→20:03)
[2021-09-24] MEDS: Magnesium Oxide 500 MG Tab PO SCH (08:23)
[2021-09-24] MEDS: Fluconazole 100 MG Tab PO SCH (08:23)
[2021-09-24] MEDS ORDERED: Insulin Lispro 100 Unit/ML 3 ML KwikPen SUBCUT SCH (18:00)
[2021-09-24] MEDS: Insulin Glargine,Hum.Rec.Anlog 100 UNIT/ML 3 ML Pen SUBCUT SCH (20:10)
[2021-09-24] MEDS: Acetaminophen 500 MG Tab PO PRN (21:07)
[2021-09-24] MEDS: Cyclobenzaprine 5 MG Tab PO PRN (21:08)
[2021-09-25] MEDS: Pantoprazole 40 MG Tab.CR PO SCH ×2 (05:38→06:31)
[2021-09-25] MEDS: Levothyroxine 75 MCG Tab PO SCH ×2 (05:38→06:25)
[2021-09-25] MEDS: acetaZOLAMIDE 500 MG Vial IV SCH (08:29)
[2021-09-25] MEDS: Ferrous Sulfate 325 MG Tab PO SCH (08:39)
[2021-09-25] MEDS: Fluconazole 100 MG Tab PO SCH (08:39)
[2021-09-25] MEDS: Potassium Chloride 20 MEQ Tab.ER PO SCH (08:39)
[2021-09-25] MEDS: Allopurinol 100 MG Tab PO SCH (08:39)
[2021-09-25] MEDS: Folic Acid 1 MG Tab PO SCH (08:39)
[2021-09-25] MEDS: Magnesium Oxide 500 MG Tab PO SCH (08:39)
[2021-09-25] MEDS: Spironolactone 25 MG Tab PO SCH (08:40)
[2021-09-25] MEDS: Nystatin Topical Powder 15 GM Bottle TOP SCH (08:41)
[2021-09-25] MEDS: Formoterol/Mometasone 200-5 MCG 13 GM Inhaler INH SCH (08:41)
[2021-09-25] MEDS: Insulin Lispro 100 Unit/ML 3 ML KwikPen SUBCUT SCH ×2 (08:42→12:30)
[2021-09-25] MEDS: [UNRECOGNIZED DRUG - OTHER] PO SCH (08:43)
[2021-09-25] MEDS: TADALAFIL 20 MG PO SCH (08:43)
[2021-09-25] MEDS: Furosemide 40 MG/4 ML VIAL IVPUSH SCH ×2 (08:49→12:34)
== END 2021-09-25 13:40 | disposition home or self-care (01) | DRG 292 ==
LOC: KA.MS 12:39
PROVIDERS: ADMIT Internal Medicine; ATTEND Internal Medicine
DX: I13.0 Hypertensive heart and chronic kidney disease with heart failure and stage 1 through stage 4 chronic kidney disease, or unspecified chronic kidney disease (principal); I50.32 Chronic diastolic (congestive) heart failure; I25.10 Atherosclerotic heart disease of native coronary artery without angina pectoris; E78.00 Pure hypercholesterolemia, unspecified; L30.4 Erythema intertrigo; I27.20 Pulmonary hypertension, unspecified; E11.22 Type 2 diabetes mellitus with diabetic chronic kidney disease; D50.9 Iron deficiency anemia, unspecified; Z66 Do not resuscitate; E03.9 Hypothyroidism, unspecified; E87.6 Hypokalemia; E83.42 Hypomagnesemia; J44.9 Chronic obstructive pulmonary disease, unspecified; M10.9 Gout, unspecified; K21.9 Gastro-esophageal reflux disease without esophagitis; R53.1 Weakness; K59.09 Other constipation; E11.42 Type 2 diabetes mellitus with diabetic polyneuropathy; F41.9 Anxiety disorder, unspecified; F32.A Depression, unspecified; E66.9 Obesity, unspecified; E55.9 Vitamin D deficiency, unspecified; E11.65 Type 2 diabetes mellitus with hyperglycemia; Z88.1 Allergy status to other antibiotic agents; Z88.2 Allergy status to sulfonamides; Z88.8 Allergy status to other drugs, medicaments and biological substances; Z79.4 Long term (current) use of insulin; Z79.899 Other long term (current) drug therapy; Z99.81 Dependence on supplemental oxygen
CPT/HCPCS: 36415; 80048; 80053; 82947; 85025; 97110-GP; 97161-GP; 97530-GP; 97535-GO; A9270-GY; J1120; J1205; J1815-GY; J1940

== ENCOUNTER 2021-10-29 11:07 | Inpatient (IN) | payer MEDICARE, MEDICAID ==
[2021-10-29] MEDS ORDERED: Sodium Chloride 0.9% 10 ML Syringe FLUSH PRN (11:39)
[2021-10-29] MEDS ORDERED: Sodium Chloride 0.9% 500 ML IV SCH (13:15)
[2021-10-29] MEDS ORDERED: Ondansetron 4 MG/2 ML SDV IVPUSH PRN (16:18)
[2021-10-29] MEDS ORDERED: Non-Formulary Medication 1 Each PO SCH (16:33)
[2021-10-29] MEDS ORDERED: Ondansetron 4 MG Tab.DIS PO PRN (16:33)
[2021-10-29] MEDS ORDERED: Glucagon,Human Recombinant 1 MG Vial IM PRN ×2 (16:33)
[2021-10-29] MEDS ORDERED: Docusate Sodium 100 MG Cap PO PRN (16:33)
[2021-10-29] MEDS ORDERED: Non-Formulary Medication 1 Each (Triamcinolone Acetonide 15 GM Tube) TOP PRN (16:33)
[2021-10-29] MEDS ORDERED: Furosemide 40 MG/4 ML VIAL IV PRN (16:33)
[2021-10-29] MEDS ORDERED: Nystatin Topical Powder 15 GM Bottle TOP PRN (16:33)
[2021-10-29] MEDS ORDERED: 50% Dextrose in Water 50 ML Syringe IVPUSH PRN (16:33)
[2021-10-29] MEDS ORDERED: Non-Formulary Medication 1 Each (Fexofenadine Hcl [Fexofenadine Hcl] 180 MG Tablet) PO PRN (16:33)
[2021-10-29] MEDS ORDERED: Polyethylene Glycol 3350 Powder 17 GM Packet PO PRN (16:33)
[2021-10-29] MEDS ORDERED: Albuterol/Ipratropium 3.0-0.5 MG/3 ML Neb Soln INH PRN (16:33)
[2021-10-29] MEDS: Enoxaparin 40 MG/0.4 ML Syringe SUBCUT SCH (16:52)
[2021-10-29] MEDS ORDERED: Sodium Chloride 0.9% 1,000 ML ONE (18:08)
[2021-10-29] MEDS: Cyclobenzaprine 5 MG Tab PO PRN (18:11)
[2021-10-29] MEDS: Diclofenac Sodium 1% Gel 100 GM Tube TOP PRN (18:13)
[2021-10-29] MEDS: Insulin Lispro 100 Unit/ML 3 ML KwikPen SUBCUT SCH (18:20)
[2021-10-29] MEDS: Potassium Chloride 20 MEQ Tab.ER PO SCH (18:21)
[2021-10-29] MEDS: Sodium Chloride 0.9% 1,000 ML IV SCH (18:30)
[2021-10-29] MEDS: Acetaminophen/Codeine 300-30 MG Tab PO PRN (19:31)
[2021-10-29] MEDS ORDERED: LORazepam 2 MG/ML SDV IVPUSH PRN (21:48)
[2021-10-29] MEDS: Formoterol/Mometasone 200-5 MCG 8.8 GM Inhaler IH SCH (21:51)
[2021-10-29] MEDS: Insulin Glargine,Hum.Rec.Anlog 100 UNIT/ML 3 ML Pen SUBCUT SCH (21:52)
[2021-10-30] MEDS: Acetaminophen/Codeine 300-30 MG Tab PO PRN ×3 (01:29→22:26)
[2021-10-30] MEDS: Cyclobenzaprine 5 MG Tab PO PRN ×3 (02:29→22:25)
[2021-10-30] MEDS ORDERED: LORazepam 2 MG/ML SDV IVPUSH PRN (02:49)
[2021-10-30] MEDS: Acetaminophen 500 MG Tab PO PRN (05:18)
[2021-10-30] MEDS: Sodium Chloride 0.9% 1,000 ML IV SCH ×2 (08:01→22:53)
[2021-10-30] MEDS: Potassium Chloride 20 MEQ Tab.ER PO SCH ×2 (08:03→17:42)
[2021-10-30] MEDS: Insulin Lispro 100 Unit/ML 3 ML KwikPen SUBCUT SCH ×3 (08:22→17:44)
[2021-10-30] MEDS ORDERED: SODIUM CHLORIDE 0.9% IV SCH (09:00)
[2021-10-30] MEDS ORDERED: [UNRECOGNIZED DRUG - OTHER] IV SCH (09:00)
[2021-10-30] MEDS ORDERED: Non-Formulary Medication 1 Each (L.Acidoph,Paracasei, B.Lactis [Probiotic] 1 EACH Capsule) PO SCH (09:00)
[2021-10-30] MEDS ORDERED: FUROSEMIDE IV SCH (09:00)
[2021-10-30 09:07] LABS: ANION GAP 14.5 mmol/L (5-15)
[2021-10-30] MEDS: Metolazone 2.5 MG Tab PO SCH (09:53)
[2021-10-30] MEDS: Magnesium Oxide 500 MG Tab PO SCH (09:58)
[2021-10-30] MEDS: Formoterol/Mometasone 200-5 MCG 8.8 GM Inhaler IH SCH ×2 (10:06→20:34)
[2021-10-30] MEDS: Levothyroxine 75 MCG Tab PO SCH (10:12)
[2021-10-30] MEDS: Folic Acid 1 MG Tab PO SCH (10:13)
[2021-10-30] MEDS: Ferrous Sulfate 325 MG Tab PO SCH (10:13)
[2021-10-30] MEDS: Allopurinol 100 MG Tab PO SCH (10:14)
[2021-10-30] MEDS: Pantoprazole 40 MG Tab.CR PO SCH (10:15)
[2021-10-30] MEDS: Spironolactone 25 MG Tab PO SCH (10:16)
[2021-10-30] MEDS: predniSONE 20 MG Tab PO SCH (10:17)
[2021-10-30] MEDS: Diclofenac Sodium 1% Gel 100 GM Tube TOP PRN (10:28)
[2021-10-30] MEDS: Lactulose Soln 10 GM/15 ML 30 ML UD Cup PO SCH ×3 (11:06→20:39)
[2021-10-30] MEDS ORDERED: Piperacillin/Tazobactam 3.375 GM in Sodium Chloride 0.9% 100 ML IV SCH (12:00)
[2021-10-30] MEDS: TADALAFIL 20 MG PO SCH (14:55)
[2021-10-30] MEDS: Enoxaparin 40 MG/0.4 ML Syringe SUBCUT SCH (17:40)
[2021-10-30] MEDS: Piperacillin/Tazobactam/Dext 3.375 GM in Premix Bag 1 BAG IV SCH (17:50)
[2021-10-30] MEDS ORDERED: LORazepam 0.5 MG Tab PO PRN (18:08)
[2021-10-30] MEDS: Insulin Glargine,Hum.Rec.Anlog 100 UNIT/ML 3 ML Pen SUBCUT SCH (20:32)
[2021-10-31] MEDS: Piperacillin/Tazobactam/Dext 3.375 GM in Premix Bag 1 BAG IV SCH ×6 (06:11→22:23)
[2021-10-31] MEDS: Formoterol/Mometasone 200-5 MCG 8.8 GM Inhaler IH SCH ×2 (08:53→22:17)
[2021-10-31] MEDS: Insulin Lispro 100 Unit/ML 3 ML KwikPen SUBCUT SCH ×3 (08:54→17:50)
[2021-10-31] MEDS: TADALAFIL 20 MG PO SCH (08:56)
[2021-10-31] MEDS: Spironolactone 25 MG Tab PO SCH (08:56)
[2021-10-31] MEDS: predniSONE 20 MG Tab PO SCH (08:57)
[2021-10-31] MEDS: Folic Acid 1 MG Tab PO SCH (08:58)
[2021-10-31] MEDS: Metolazone 2.5 MG Tab PO SCH (08:58)
[2021-10-31] MEDS: Pantoprazole 40 MG Tab.CR PO SCH (08:58)
[2021-10-31] MEDS: Magnesium Oxide 500 MG Tab PO SCH (08:59)
[2021-10-31] MEDS: Allopurinol 100 MG Tab PO SCH (08:59)
[2021-10-31] MEDS: Levothyroxine 75 MCG Tab PO SCH (08:59)
[2021-10-31] MEDS: Ferrous Sulfate 325 MG Tab PO SCH (08:59)
[2021-10-31] MEDS: Diclofenac Sodium 1% Gel 100 GM Tube TOP PRN ×2 (09:00→17:51)
[2021-10-31 09:01] LABS: ANION GAP 14.9 mmol/L (5-15)
[2021-10-31] MEDS: Potassium Chloride 20 MEQ Tab.ER PO SCH ×2 (09:01→17:44)
[2021-10-31] MEDS: Acetaminophen 500 MG Tab PO PRN (09:04)
[2021-10-31] MEDS: Lactulose Soln 10 GM/15 ML 30 ML UD Cup PO SCH ×3 (11:41→22:16)
[2021-10-31] MEDS: Enoxaparin 40 MG/0.4 ML Syringe SUBCUT SCH (17:49)
[2021-10-31] MEDS: Sodium Chloride 0.9% 1,000 ML IV SCH (18:43)
[2021-10-31] MEDS: Acetaminophen/Codeine 300-30 MG Tab PO PRN (19:47)
[2021-10-31] MEDS: Cyclobenzaprine 5 MG Tab PO PRN (22:16)
[2021-10-31] MEDS: Insulin Glargine,Hum.Rec.Anlog 100 UNIT/ML 3 ML Pen SUBCUT SCH (22:19)
[2021-11-01] MEDS: Piperacillin/Tazobactam/Dext 3.375 GM in Premix Bag 1 BAG IV SCH ×5 (03:37→23:34)
[2021-11-01] MEDS: Acetaminophen/Codeine 300-30 MG Tab PO PRN ×3 (04:12→22:06)
[2021-11-01] MEDS: Cyclobenzaprine 5 MG Tab PO PRN ×2 (04:13→22:06)
[2021-11-01 07:36] LABS: ANION GAP 11.8 mmol/L (5-15)
[2021-11-01] MEDS: Insulin Lispro 100 Unit/ML 3 ML KwikPen SUBCUT SCH ×3 (08:17→17:53)
[2021-11-01] MEDS: Potassium Chloride 20 MEQ Tab.ER PO SCH ×2 (08:18→17:21)
[2021-11-01] MEDS: Pantoprazole 40 MG Tab.CR PO SCH (08:31)
[2021-11-01] MEDS: Folic Acid 1 MG Tab PO SCH (08:31)
[2021-11-01] MEDS: Allopurinol 100 MG Tab PO SCH (08:31)
[2021-11-01] MEDS: Ferrous Sulfate 325 MG Tab PO SCH (08:31)
[2021-11-01] MEDS: Magnesium Oxide 500 MG Tab PO SCH (08:33)
[2021-11-01] MEDS: Spironolactone 25 MG Tab PO SCH (08:33)
[2021-11-01] MEDS: Metolazone 2.5 MG Tab PO SCH (08:33)
[2021-11-01] MEDS: Levothyroxine 75 MCG Tab PO SCH (08:33)
[2021-11-01] MEDS: predniSONE 20 MG Tab PO SCH (08:33)
[2021-11-01] MEDS: TADALAFIL 20 MG PO SCH (08:34)
[2021-11-01] MEDS: Lactulose Soln 10 GM/15 ML 30 ML UD Cup PO SCH (08:39)
[2021-11-01] MEDS: Formoterol/Mometasone 200-5 MCG 8.8 GM Inhaler IH SCH ×2 (08:40→20:31)
[2021-11-01] MEDS ORDERED: acetaZOLAMIDE 250 MG in Sodium Chloride 0.9% 50 ML IV SCH (10:30)
[2021-11-01] MEDS ORDERED: Sodium Chloride 0.9% 50 ML IV SCH (10:30)
[2021-11-01] MEDS: acetaZOLAMIDE 500 MG Vial IV SCH (10:46)
[2021-11-01] MEDS ORDERED: Furosemide 40 MG/4 ML VIAL IVPUSH SCH (11:00)
[2021-11-01] MEDS: Furosemide 40 MG/4 ML VIAL IVPUSH SCH ×8 (11:16→20:13)
[2021-11-01] MEDS: Enoxaparin 40 MG/0.4 ML Syringe SUBCUT SCH (17:21)
[2021-11-01] MEDS: Insulin Glargine,Hum.Rec.Anlog 100 UNIT/ML 3 ML Pen SUBCUT SCH (21:05)
[2021-11-02] MEDS: Levothyroxine 75 MCG Tab PO SCH ×2 (06:14→08:07)
[2021-11-02] MEDS: Piperacillin/Tazobactam/Dext 3.375 GM in Premix Bag 1 BAG IV SCH ×2 (06:14→11:41)
[2021-11-02 07:44] LABS: ANION GAP 15.4 mmol/L (5-15)
[2021-11-02] MEDS: Insulin Lispro 100 Unit/ML 3 ML KwikPen SUBCUT SCH ×2 (07:59→11:58)
[2021-11-02] MEDS: Potassium Chloride 20 MEQ Tab.ER PO SCH (08:05)
[2021-11-02] MEDS: predniSONE 20 MG Tab PO SCH (08:06)
[2021-11-02] MEDS: Allopurinol 100 MG Tab PO SCH (08:06)
[2021-11-02] MEDS: Spironolactone 25 MG Tab PO SCH (08:06)
[2021-11-02] MEDS: Folic Acid 1 MG Tab PO SCH (08:06)
[2021-11-02] MEDS: Pantoprazole 40 MG Tab.CR PO SCH (08:06)
[2021-11-02] MEDS: Ferrous Sulfate 325 MG Tab PO SCH (08:06)
[2021-11-02] MEDS: Magnesium Oxide 500 MG Tab PO SCH (08:06)
[2021-11-02] MEDS: Formoterol/Mometasone 200-5 MCG 8.8 GM Inhaler IH SCH (08:11)
[2021-11-02] MEDS: TADALAFIL 20 MG PO SCH (08:16)
[2021-11-02] MEDS: acetaZOLAMIDE 500 MG Vial IV SCH (08:44)
[2021-11-02] MEDS: Furosemide 40 MG/4 ML VIAL IVPUSH SCH (08:58)
[2021-11-03] MEDS ORDERED: Levothyroxine 75 MCG Tab PO SCH (07:30)
[2021-11-03] MEDS ORDERED: Metolazone 2.5 MG Tab PO SCH (09:00)
== END 2021-11-02 11:44 | disposition swing bed (61) | DRG 947 ==
LOC: KA.ED 11:07 → KA.MS 13:11
PROVIDERS: ADMIT Physician Assistant Medical; ATTEND Internal Medicine
DX: R41.0 Disorientation, unspecified (principal); N17.9 Acute kidney failure, unspecified; N18.9 Chronic kidney disease, unspecified; E86.0 Dehydration; J30.9 Allergic rhinitis, unspecified; R41.82 Altered mental status, unspecified; I50.33 Acute on chronic diastolic (congestive) heart failure; I50.9 Heart failure, unspecified; E78.00 Pure hypercholesterolemia, unspecified; E72.20 Disorder of urea cycle metabolism, unspecified; I13.0 Hypertensive heart and chronic kidney disease with heart failure and stage 1 through stage 4 chronic kidney disease, or unspecified chronic kidney disease; G47.30 Sleep apnea, unspecified; N18.30 Chronic kidney disease, stage 3 unspecified; E11.22 Type 2 diabetes mellitus with diabetic chronic kidney disease; E78.5 Hyperlipidemia, unspecified; I25.10 Atherosclerotic heart disease of native coronary artery without angina pectoris; K59.09 Other constipation; F41.9 Anxiety disorder, unspecified; E11.42 Type 2 diabetes mellitus with diabetic polyneuropathy; E55.9 Vitamin D deficiency, unspecified; Z88.1 Allergy status to other antibiotic agents; Z88.2 Allergy status to sulfonamides; Z88.8 Allergy status to other drugs, medicaments and biological substances; F32.A Depression, unspecified; E66.9 Obesity, unspecified; I27.20 Pulmonary hypertension, unspecified; D50.9 Iron deficiency anemia, unspecified; E87.6 Hypokalemia; E03.9 Hypothyroidism, unspecified; E83.42 Hypomagnesemia; Z20.822 Contact with and (suspected) exposure to COVID-19; J44.9 Chronic obstructive pulmonary disease, unspecified; K21.9 Gastro-esophageal reflux disease without esophagitis; M10.9 Gout, unspecified; Z66 Do not resuscitate; Z51.5 Encounter for palliative care; Z79.890 Hormone replacement therapy; Z79.1 Long term (current) use of non-steroidal anti-inflammatories (NSAID); Z79.899 Other long term (current) drug therapy; Z79.4 Long term (current) use of insulin; Z79.52 Long term (current) use of systemic steroids; Z68.32 Body mass index [BMI] 32.0-32.9, adult; Z86.14 Personal history of Methicillin resistant Staphylococcus aureus infection
CPT/HCPCS: 36415; 51702; 70450; 71045; 80048; 80053; 81001; 82140; 82947; 83605; 83880; 84439; 84443; 84484; 85025; 87040; 87186; 93005; 93010; 99223; 99285-25; A9270-GY; J1120; J1205; J1650; J1815-GY; J1940; J2060; J2405; J2543; J3370; J7030; J7040; J7050; J7512; U0002

== ENCOUNTER 2021-11-02 10:20 | Inpatient (IN) | payer MEDICARE, MEDICAID ==
[2021-11-02] MEDS ORDERED: Ondansetron 4 MG Tab.DIS PO PRN (11:44)
[2021-11-02] MEDS ORDERED: Glucagon,Human Recombinant 1 MG Vial IM PRN ×2 (11:44)
[2021-11-02] MEDS ORDERED: Polyethylene Glycol 3350 Powder 17 GM Packet PO PRN (11:44)
[2021-11-02] MEDS ORDERED: Albuterol/Ipratropium 3.0-0.5 MG/3 ML Neb Soln INH PRN (11:44)
[2021-11-02] MEDS ORDERED: Ondansetron 4 MG/2 ML SDV IVPUSH PRN (11:44)
[2021-11-02] MEDS ORDERED: Sodium Chloride 0.9% 50 ML IV SCH (11:44)
[2021-11-02] MEDS ORDERED: Docusate Sodium 100 MG Cap PO PRN (11:44)
[2021-11-02] MEDS ORDERED: LORazepam 0.5 MG Tab PO PRN (11:44)
[2021-11-02] MEDS ORDERED: 50% Dextrose in Water 50 ML Syringe IVPUSH PRN (11:44)
[2021-11-02] MEDS: Insulin Lispro 100 Unit/ML 3 ML KwikPen SUBCUT SCH ×2 (12:35→18:03)
[2021-11-02] MEDS: Furosemide 40 MG/4 ML VIAL IVPUSH SCH ×2 (13:16→21:25)
[2021-11-02] MEDS: Triamcinolone Acetonide 0.1% Crm 15 GM Tube TOP SCH ×2 (15:46→21:25)
[2021-11-02] MEDS: Enoxaparin 40 MG/0.4 ML Syringe SUBCUT SCH (17:31)
[2021-11-02] MEDS: Potassium Chloride 20 MEQ Tab.ER PO SCH (17:31)
[2021-11-02] MEDS: Piperacillin/Tazobactam/Dext 3.375 GM in Premix Bag 1 BAG IV SCH ×2 (17:31→23:56)
[2021-11-02] MEDS: Insulin Glargine,Hum.Rec.Anlog 100 UNIT/ML 3 ML Pen SUBCUT SCH (21:24)
[2021-11-02] MEDS: Formoterol/Mometasone 200-5 MCG 8.8 GM Inhaler IH SCH (21:24)
[2021-11-02] MEDS: Acetaminophen/Codeine 300-30 MG Tab PO PRN (21:26)
[2021-11-02] MEDS: Cyclobenzaprine 5 MG Tab PO PRN (21:26)
[2021-11-03] MEDS: Piperacillin/Tazobactam/Dext 3.375 GM in Premix Bag 1 BAG IV SCH ×3 (05:15→17:34)
[2021-11-03] MEDS: Levothyroxine 75 MCG Tab PO SCH ×2 (05:51→06:30)
[2021-11-03] MEDS: Insulin Lispro 100 Unit/ML 3 ML KwikPen SUBCUT SCH ×3 (07:57→17:39)
[2021-11-03] MEDS: Potassium Chloride 20 MEQ Tab.ER PO SCH ×3 (08:00→17:35)
[2021-11-03] MEDS: Folic Acid 1 MG Tab PO SCH (08:23)
[2021-11-03] MEDS: Magnesium Oxide 500 MG Tab PO SCH (08:23)
[2021-11-03] MEDS: Spironolactone 25 MG Tab PO SCH (08:23)
[2021-11-03] MEDS: Pantoprazole 40 MG Tab.CR PO SCH (08:23)
[2021-11-03] MEDS: Allopurinol 100 MG Tab PO SCH (08:23)
[2021-11-03] MEDS: Ferrous Sulfate 325 MG Tab PO SCH (08:24)
[2021-11-03] MEDS: Triamcinolone Acetonide 0.1% Crm 15 GM Tube TOP SCH ×2 (08:25→21:39)
[2021-11-03] MEDS: TADALAFIL 20 MG PO SCH (08:26)
[2021-11-03] MEDS: Formoterol/Mometasone 200-5 MCG 8.8 GM Inhaler IH SCH ×2 (08:27→21:37)
[2021-11-03] MEDS: acetaZOLAMIDE 500 MG Vial IV SCH (08:27)
[2021-11-03] MEDS: Furosemide 40 MG/4 ML VIAL IVPUSH SCH ×3 (08:36→20:40)
[2021-11-03] MEDS: Metolazone 2.5 MG Tab PO SCH (08:48)
[2021-11-03] MEDS ORDERED: TADALAFIL 20 MG PO SCH (09:00)
[2021-11-03 09:31] LABS: ANION GAP 13.9 mmol/L (5-15)
[2021-11-03] MEDS: Enoxaparin 40 MG/0.4 ML Syringe SUBCUT SCH (17:36)
[2021-11-03] MEDS: Insulin Glargine,Hum.Rec.Anlog 100 UNIT/ML 3 ML Pen SUBCUT SCH (21:37)
[2021-11-03] MEDS: Cyclobenzaprine 5 MG Tab PO PRN (21:38)
[2021-11-03] MEDS: Acetaminophen/Codeine 300-30 MG Tab PO PRN (21:39)
[2021-11-04] MEDS: Piperacillin/Tazobactam/Dext 3.375 GM in Premix Bag 1 BAG IV SCH ×5 (01:31→22:59)
[2021-11-04] MEDS: Levothyroxine 75 MCG Tab PO SCH ×2 (05:28→06:31)
[2021-11-04] MEDS: Insulin Lispro 100 Unit/ML 3 ML KwikPen SUBCUT SCH ×3 (07:25→17:59)
[2021-11-04] MEDS: Potassium Chloride 20 MEQ Tab.ER PO SCH ×3 (07:36→17:02)
[2021-11-04] MEDS: acetaZOLAMIDE 500 MG Vial IV SCH (07:37)
[2021-11-04 07:49] LABS: ANION GAP 11.2 mmol/L (5-15)
[2021-11-04] MEDS: Allopurinol 100 MG Tab PO SCH (08:22)
[2021-11-04] MEDS: Magnesium Oxide 500 MG Tab PO SCH (08:22)
[2021-11-04] MEDS: Formoterol/Mometasone 200-5 MCG 8.8 GM Inhaler IH SCH ×2 (08:22→20:50)
[2021-11-04] MEDS: Triamcinolone Acetonide 0.1% Crm 15 GM Tube TOP SCH ×2 (08:22→21:11)
[2021-11-04] MEDS: Spironolactone 25 MG Tab PO SCH (08:22)
[2021-11-04] MEDS: Pantoprazole 40 MG Tab.CR PO SCH (08:22)
[2021-11-04] MEDS: TADALAFIL 20 MG PO SCH (08:23)
[2021-11-04] MEDS: Ferrous Sulfate 325 MG Tab PO SCH (08:23)
[2021-11-04] MEDS: Folic Acid 1 MG Tab PO SCH (08:23)
[2021-11-04] MEDS: Furosemide 40 MG/4 ML VIAL IVPUSH SCH ×3 (08:29→20:51)
[2021-11-04] MEDS: Enoxaparin 40 MG/0.4 ML Syringe SUBCUT SCH (17:02)
[2021-11-04] MEDS: Acetaminophen 500 MG Tab PO PRN (17:03)
[2021-11-04] MEDS: Insulin Glargine,Hum.Rec.Anlog 100 UNIT/ML 3 ML Pen SUBCUT SCH (20:50)
[2021-11-04] MEDS: Cyclobenzaprine 5 MG Tab PO PRN (20:51)
[2021-11-04] MEDS: Acetaminophen/Codeine 300-30 MG Tab PO PRN (20:51)
[2021-11-05] MEDS: Acetaminophen 500 MG Tab PO PRN (03:51)
[2021-11-05 05:38] LABS: ANION GAP 7.1 mmol/L (5-15)
[2021-11-05] MEDS: Piperacillin/Tazobactam/Dext 3.375 GM in Premix Bag 1 BAG IV SCH ×2 (05:45→13:07)
[2021-11-05] MEDS: Levothyroxine 75 MCG Tab PO SCH ×2 (05:45→06:31)
[2021-11-05] MEDS: Insulin Lispro 100 Unit/ML 3 ML KwikPen SUBCUT SCH ×3 (07:53→18:23)
[2021-11-05] MEDS: Formoterol/Mometasone 200-5 MCG 8.8 GM Inhaler IH SCH ×2 (08:37→20:38)
[2021-11-05] MEDS: acetaZOLAMIDE 500 MG Vial IV SCH (08:38)
[2021-11-05] MEDS: Triamcinolone Acetonide 0.1% Crm 15 GM Tube TOP SCH ×2 (08:38→20:40)
[2021-11-05] MEDS: Pantoprazole 40 MG Tab.CR PO SCH (08:39)
[2021-11-05] MEDS: Ferrous Sulfate 325 MG Tab PO SCH (08:39)
[2021-11-05] MEDS: Allopurinol 100 MG Tab PO SCH (08:39)
[2021-11-05] MEDS: Metolazone 2.5 MG Tab PO SCH (08:39)
[2021-11-05] MEDS: Furosemide 40 MG/4 ML VIAL IVPUSH SCH ×3 (08:39→20:43)
[2021-11-05] MEDS: Folic Acid 1 MG Tab PO SCH (08:39)
[2021-11-05] MEDS: Spironolactone 25 MG Tab PO SCH (08:39)
[2021-11-05] MEDS: Magnesium Oxide 500 MG Tab PO SCH (08:40)
[2021-11-05] MEDS: TADALAFIL 20 MG PO SCH (08:41)
[2021-11-05] MEDS: Potassium Chloride 20 MEQ Tab.ER PO SCH ×4 (08:43→17:19)
[2021-11-05] MEDS: Ascorbic Acid 500 MG Tab PO SCH (08:45)
[2021-11-05] MEDS ORDERED: Potassium Chloride 20 MEQ Tab.ER PO ONE (09:00)
[2021-11-05] MEDS ORDERED: Potassium Chloride 20 MEQ Tab.ER PO SCH (12:00)
[2021-11-05] MEDS: Enoxaparin 40 MG/0.4 ML Syringe SUBCUT SCH (16:04)
[2021-11-05] MEDS: Sodium Chloride 0.9% 10 ML Syringe FLUSH PRN (19:51)
[2021-11-05] MEDS: Nystatin Topical Powder 15 GM Bottle TOP PRN (20:36)
[2021-11-05] MEDS: Cyclobenzaprine 5 MG Tab PO PRN (20:41)
[2021-11-05] MEDS: Acetaminophen/Codeine 300-30 MG Tab PO PRN (20:41)
[2021-11-05] MEDS: Insulin Glargine,Hum.Rec.Anlog 100 UNIT/ML 3 ML Pen SUBCUT SCH (21:02)
[2021-11-06] MEDS: Acetaminophen 500 MG Tab PO PRN ×2 (01:27→23:06)
[2021-11-06] MEDS: Levothyroxine 75 MCG Tab PO SCH (06:33)
[2021-11-06 07:59] LABS: ANION GAP 9.3 mmol/L (5-15)
[2021-11-06] MEDS: acetaZOLAMIDE 500 MG Vial IV SCH (08:52)
[2021-11-06] MEDS: Insulin Lispro 100 Unit/ML 3 ML KwikPen SUBCUT SCH ×3 (08:53→17:50)
[2021-11-06] MEDS: Spironolactone 25 MG Tab PO SCH (08:54)
[2021-11-06] MEDS: Potassium Chloride 20 MEQ Tab.ER PO SCH ×3 (08:54→17:36)
[2021-11-06] MEDS: Ascorbic Acid 500 MG Tab PO SCH (08:55)
[2021-11-06] MEDS: Allopurinol 100 MG Tab PO SCH (08:55)
[2021-11-06] MEDS: Magnesium Oxide 500 MG Tab PO SCH (08:55)
[2021-11-06] MEDS: Pantoprazole 40 MG Tab.CR PO SCH (08:55)
[2021-11-06] MEDS: Folic Acid 1 MG Tab PO SCH (08:55)
[2021-11-06] MEDS: Ferrous Sulfate 325 MG Tab PO SCH (08:56)
[2021-11-06] MEDS: Furosemide 40 MG/4 ML VIAL IVPUSH SCH ×3 (09:03→20:30)
[2021-11-06] MEDS: TADALAFIL 20 MG PO SCH (09:03)
[2021-11-06] MEDS: Formoterol/Mometasone 200-5 MCG 8.8 GM Inhaler IH SCH ×2 (09:04→20:25)
[2021-11-06] MEDS: Triamcinolone Acetonide 0.1% Crm 15 GM Tube TOP SCH ×2 (09:04→20:24)
[2021-11-06] MEDS: Enoxaparin 40 MG/0.4 ML Syringe SUBCUT SCH (17:28)
[2021-11-06] MEDS: Insulin Glargine,Hum.Rec.Anlog 100 UNIT/ML 3 ML Pen SUBCUT SCH (21:57)
[2021-11-06] MEDS: Cyclobenzaprine 5 MG Tab PO PRN (23:07)
[2021-11-07] MEDS: Diclofenac Sodium 1% Gel 100 GM Tube TOP PRN (01:44)
[2021-11-07] MEDS: Levothyroxine 75 MCG Tab PO SCH (06:32)
[2021-11-07 07:50] LABS: ANION GAP 10.2 mmol/L (5-15)
[2021-11-07] MEDS: acetaZOLAMIDE 500 MG Vial IV SCH (08:07)
[2021-11-07] MEDS: Potassium Chloride 20 MEQ Tab.ER PO SCH ×3 (08:07→17:28)
[2021-11-07] MEDS: Allopurinol 100 MG Tab PO SCH (08:10)
[2021-11-07] MEDS: Pantoprazole 40 MG Tab.CR PO SCH (08:10)
[2021-11-07] MEDS: Folic Acid 1 MG Tab PO SCH (08:10)
[2021-11-07] MEDS: Magnesium Oxide 500 MG Tab PO SCH (08:10)
[2021-11-07] MEDS: Ferrous Sulfate 325 MG Tab PO SCH (08:10)
[2021-11-07] MEDS: Ascorbic Acid 500 MG Tab PO SCH (08:11)
[2021-11-07] MEDS: Spironolactone 25 MG Tab PO SCH (08:11)
[2021-11-07] MEDS: TADALAFIL 20 MG PO SCH (08:16)
[2021-11-07] MEDS: Insulin Lispro 100 Unit/ML 3 ML KwikPen SUBCUT SCH ×3 (08:21→18:05)
[2021-11-07] MEDS: Triamcinolone Acetonide 0.1% Crm 15 GM Tube TOP SCH ×2 (08:28→21:05)
[2021-11-07] MEDS: Formoterol/Mometasone 200-5 MCG 8.8 GM Inhaler IH SCH ×2 (08:28→20:07)
[2021-11-07] MEDS: Furosemide 40 MG/4 ML VIAL IVPUSH SCH ×3 (08:29→21:16)
[2021-11-07] MEDS: Enoxaparin 40 MG/0.4 ML Syringe SUBCUT SCH (17:25)
[2021-11-07] MEDS: Cyclobenzaprine 5 MG Tab PO PRN (20:04)
[2021-11-07] MEDS: Nystatin Topical Powder 15 GM Bottle TOP PRN (20:04)
[2021-11-07] MEDS: Acetaminophen/Codeine 300-30 MG Tab PO PRN (20:05)
[2021-11-07] MEDS: Sodium Chloride 0.9% 10 ML Syringe FLUSH PRN (20:12)
[2021-11-07] MEDS: Insulin Glargine,Hum.Rec.Anlog 100 UNIT/ML 3 ML Pen SUBCUT SCH (21:02)
[2021-11-08] MEDS: Acetaminophen 500 MG Tab PO PRN (05:02)
[2021-11-08] MEDS: Levothyroxine 75 MCG Tab PO SCH ×2 (05:06→06:35)
[2021-11-08] MEDS: acetaZOLAMIDE 500 MG Vial IV SCH (07:31)
[2021-11-08] MEDS: Insulin Lispro 100 Unit/ML 3 ML KwikPen SUBCUT SCH ×3 (07:32→17:44)
[2021-11-08 07:57] LABS: ANION GAP 9.8 mmol/L (5-15)
[2021-11-08] MEDS: Pantoprazole 40 MG Tab.CR PO SCH (08:07)
[2021-11-08] MEDS: Spironolactone 25 MG Tab PO SCH (08:07)
[2021-11-08] MEDS: Allopurinol 100 MG Tab PO SCH (08:08)
[2021-11-08] MEDS: Folic Acid 1 MG Tab PO SCH (08:08)
[2021-11-08] MEDS: Potassium Chloride 20 MEQ Tab.ER PO SCH ×3 (08:08→17:44)
[2021-11-08] MEDS: Ascorbic Acid 500 MG Tab PO SCH (08:08)
[2021-11-08] MEDS: Magnesium Oxide 500 MG Tab PO SCH (08:08)
[2021-11-08] MEDS: Ferrous Sulfate 325 MG Tab PO SCH (08:08)
[2021-11-08] MEDS: Metolazone 2.5 MG Tab PO SCH (08:10)
[2021-11-08] MEDS: TADALAFIL 20 MG PO SCH (08:11)
[2021-11-08] MEDS: Triamcinolone Acetonide 0.1% Crm 15 GM Tube TOP SCH ×2 (08:11→20:47)
[2021-11-08] MEDS: Formoterol/Mometasone 200-5 MCG 8.8 GM Inhaler IH SCH ×2 (08:11→20:47)
[2021-11-08] MEDS: Furosemide 40 MG/4 ML VIAL IVPUSH SCH ×3 (08:16→20:31)
[2021-11-08] MEDS: Enoxaparin 40 MG/0.4 ML Syringe SUBCUT SCH (17:44)
[2021-11-08] MEDS: Insulin Glargine,Hum.Rec.Anlog 100 UNIT/ML 3 ML Pen SUBCUT SCH (20:47)
[2021-11-08] MEDS: Cyclobenzaprine 5 MG Tab PO PRN (20:47)
[2021-11-08] MEDS: Acetaminophen/Codeine 300-30 MG Tab PO PRN (20:48)
[2021-11-09 07:42] LABS: ANION GAP 10.8 mmol/L (5-15)
[2021-11-09] MEDS: Levothyroxine 75 MCG Tab PO SCH (08:05)
[2021-11-09] MEDS: acetaZOLAMIDE 500 MG Vial IV SCH (08:05)
[2021-11-09] MEDS: Potassium Chloride 20 MEQ Tab.ER PO SCH ×3 (08:05→17:40)
[2021-11-09] MEDS: Insulin Lispro 100 Unit/ML 3 ML KwikPen SUBCUT SCH ×3 (08:05→17:40)
[2021-11-09] MEDS: Ascorbic Acid 500 MG Tab PO SCH (09:26)
[2021-11-09] MEDS: Allopurinol 100 MG Tab PO SCH (09:26)
[2021-11-09] MEDS: Spironolactone 25 MG Tab PO SCH (09:26)
[2021-11-09] MEDS: Furosemide 40 MG/4 ML VIAL IVPUSH SCH ×3 (09:26→20:12)
[2021-11-09] MEDS: Pantoprazole 40 MG Tab.CR PO SCH (09:27)
[2021-11-09] MEDS: TADALAFIL 20 MG PO SCH (09:27)
[2021-11-09] MEDS: Ferrous Sulfate 325 MG Tab PO SCH (09:27)
[2021-11-09] MEDS: Magnesium Oxide 500 MG Tab PO SCH (09:27)
[2021-11-09] MEDS: Folic Acid 1 MG Tab PO SCH (09:27)
[2021-11-09] MEDS: Triamcinolone Acetonide 0.1% Crm 15 GM Tube TOP SCH ×2 (09:28→21:16)
[2021-11-09] MEDS: Formoterol/Mometasone 200-5 MCG 8.8 GM Inhaler IH SCH ×2 (09:28→21:15)
[2021-11-09] MEDS: Enoxaparin 40 MG/0.4 ML Syringe SUBCUT SCH (17:40)
[2021-11-09] MEDS: Insulin Glargine,Hum.Rec.Anlog 100 UNIT/ML 3 ML Pen SUBCUT SCH (21:15)
[2021-11-09] MEDS: Acetaminophen/Codeine 300-30 MG Tab PO PRN (21:48)
[2021-11-09] MEDS: Diclofenac Sodium 1% Gel 100 GM Tube TOP PRN (21:49)
[2021-11-09] MEDS: Cyclobenzaprine 5 MG Tab PO PRN (21:49)
[2021-11-10] MEDS: Cyclobenzaprine 5 MG Tab PO PRN (06:34)
[2021-11-10] MEDS: Levothyroxine 75 MCG Tab PO SCH (06:34)
[2021-11-10] MEDS: acetaZOLAMIDE 500 MG Vial IV SCH (08:07)
[2021-11-10] MEDS: Insulin Lispro 100 Unit/ML 3 ML KwikPen SUBCUT SCH ×2 (08:10→12:06)
[2021-11-10] MEDS: Ferrous Sulfate 325 MG Tab PO SCH (08:11)
[2021-11-10] MEDS: TADALAFIL 20 MG PO SCH (08:11)
[2021-11-10] MEDS: Furosemide 40 MG/4 ML VIAL IVPUSH SCH ×2 (08:11→12:31)
[2021-11-10] MEDS: Formoterol/Mometasone 200-5 MCG 8.8 GM Inhaler IH SCH (08:11)
[2021-11-10] MEDS: Spironolactone 25 MG Tab PO SCH (08:12)
[2021-11-10] MEDS: Pantoprazole 40 MG Tab.CR PO SCH (08:12)
[2021-11-10] MEDS: Ascorbic Acid 500 MG Tab PO SCH (08:12)
[2021-11-10] MEDS: Magnesium Oxide 500 MG Tab PO SCH (08:12)
[2021-11-10] MEDS: Potassium Chloride 20 MEQ Tab.ER PO SCH ×2 (08:12→12:09)
[2021-11-10] MEDS: Folic Acid 1 MG Tab PO SCH (08:12)
[2021-11-10] MEDS: Allopurinol 100 MG Tab PO SCH (08:12)
[2021-11-10] MEDS: Triamcinolone Acetonide 0.1% Crm 15 GM Tube TOP SCH (08:13)
[2021-11-10] MEDS: Metolazone 2.5 MG Tab PO SCH (08:17)
== END 2021-11-10 13:25 | disposition home or self-care (01) | DRG 291 ==
LOC: KA.MS 11:44
PROVIDERS: ADMIT Internal Medicine; ATTEND Internal Medicine
DX: I13.0 Hypertensive heart and chronic kidney disease with heart failure and stage 1 through stage 4 chronic kidney disease, or unspecified chronic kidney disease (principal); I50.33 Acute on chronic diastolic (congestive) heart failure; H54.7 Unspecified visual loss; J30.9 Allergic rhinitis, unspecified; I25.10 Atherosclerotic heart disease of native coronary artery without angina pectoris; E78.00 Pure hypercholesterolemia, unspecified; N18.30 Chronic kidney disease, stage 3 unspecified; E87.6 Hypokalemia; E83.42 Hypomagnesemia; Z66 Do not resuscitate; I27.20 Pulmonary hypertension, unspecified; I87.2 Venous insufficiency (chronic) (peripheral); J44.9 Chronic obstructive pulmonary disease, unspecified; G47.30 Sleep apnea, unspecified; K59.09 Other constipation; K21.9 Gastro-esophageal reflux disease without esophagitis; K76.9 Liver disease, unspecified; R32 Unspecified urinary incontinence; M10.9 Gout, unspecified; G89.29 Other chronic pain; M54.9 Dorsalgia, unspecified; G62.9 Polyneuropathy, unspecified; F41.9 Anxiety disorder, unspecified; F32.A Depression, unspecified; E11.9 Type 2 diabetes mellitus without complications; E03.9 Hypothyroidism, unspecified; E66.9 Obesity, unspecified; D50.9 Iron deficiency anemia, unspecified; Z88.1 Allergy status to other antibiotic agents; Z88.8 Allergy status to other drugs, medicaments and biological substances; Z88.2 Allergy status to sulfonamides; Z79.899 Other long term (current) drug therapy; Z79.890 Hormone replacement therapy; Z79.4 Long term (current) use of insulin; Z86.14 Personal history of Methicillin resistant Staphylococcus aureus infection
CPT/HCPCS: 36415; 80048; 80202; 82947; A9270-GY; J1120; J1205; J1650; J1815-GY; J1940; J2543; J3370; J7050

== ENCOUNTER 2021-11-22 20:40 | Emergency (ER) | payer MEDICARE, MEDICAID ==
[2021-11-22] MEDS: Cephalexin 250 MG Cap PO ONE (21:45)
== END 2021-11-22 21:50 | disposition home or self-care (01) ==
LOC: KA.ED 20:40
DX: N39.0 Urinary tract infection, site not specified (principal); I11.0 Hypertensive heart disease with heart failure; I50.9 Heart failure, unspecified; I25.10 Atherosclerotic heart disease of native coronary artery without angina pectoris; J44.9 Chronic obstructive pulmonary disease, unspecified; E11.9 Type 2 diabetes mellitus without complications; E03.9 Hypothyroidism, unspecified; E78.00 Pure hypercholesterolemia, unspecified; E66.9 Obesity, unspecified; Z68.43 Body mass index [BMI] 50.0-59.9, adult; Z88.1 Allergy status to other antibiotic agents; Z88.2 Allergy status to sulfonamides; Z88.8 Allergy status to other drugs, medicaments and biological substances; Z79.899 Other long term (current) drug therapy; Z79.4 Long term (current) use of insulin
CPT/HCPCS: 81001; 87086; 87088; 87186; 99283; 99284; A9270-GY

== ENCOUNTER 2021-12-15 07:28 | Emergency (ER) | payer MEDICARE, MEDICAID ==
[2021-12-15] MEDS: Sodium Chloride 0.9% 500 ML IV SCH (08:35)
[2021-12-15 09:18] LABS: ANION GAP 22.7 mmol/L (5-15); SODIUM,NA 130 mmol/L (136-145)
[2021-12-15 09:31] LABS: CHLORIDE,CL 94 mmol/L (98-107)
== END 2021-12-15 12:40 ==
LOC: KA.ED 07:28
DX: I13.0 Hypertensive heart and chronic kidney disease with heart failure and stage 1 through stage 4 chronic kidney disease, or unspecified chronic kidney disease (principal); E11.22 Type 2 diabetes mellitus with diabetic chronic kidney disease; N18.9 Chronic kidney disease, unspecified; I50.9 Heart failure, unspecified; I25.10 Atherosclerotic heart disease of native coronary artery without angina pectoris; J44.9 Chronic obstructive pulmonary disease, unspecified; E03.9 Hypothyroidism, unspecified; E72.20 Disorder of urea cycle metabolism, unspecified; E66.9 Obesity, unspecified; Z88.1 Allergy status to other antibiotic agents; Z88.2 Allergy status to sulfonamides; Z88.8 Allergy status to other drugs, medicaments and biological substances; Z79.899 Other long term (current) drug therapy; Z79.4 Long term (current) use of insulin; Z68.43 Body mass index [BMI] 50.0-59.9, adult
CPT/HCPCS: 36415; 51702; 71045; 80053; 81001; 82140; 82550; 82553; 83605; 83735; 83880; 84484; 85025; 93010; 99285; 99285-25; J7040